=== PATIENT | female | born 1985 | race Caucasian/White ===

== ENCOUNTER 2020-07-23 19:37 | Inpatient (IN) ==
[2020-07-23] MEDS ORDERED: LABETALOL 20 MG/4 ML SYRINGE IV STA (20:06)
[2020-07-23] MEDS ORDERED: SODIUM CHLORIDE 0.9% 1,000 ML IV STA (20:06)
[2020-07-23] MEDS ORDERED: PIPERACILLIN/TAZOBACTAM 3,375 MG in SODIUM CHLORIDE 0.9% 100 ML IV STA (20:16)
[2020-07-23 20:47] LABS: ABG Base Excess 0.6 MMOL/L (-2.5-2.5); ABG HCO3 24.7 MMOL/L (20-26); ABG Oxygen Saturation 86.8 % (95-100); ABG PCO2 42.5 MM HG (35-48); ABG PH 7.391 (7.35-7.45); ABG PO2 48.2 MM HG (80-95); ABG TCO2 21.7 MMOL/L (23-27); Allen Test Positive
[2020-07-23 21:05] LABS: Barbiturates Screen,Urine Negative (Negative); Benzodiazepines Screen,Urine Positive (Negative); Cannabinoid Screen,Urine Negative (Negative); Opiate Screen,Urine Positive (Negative); Phencyclidine Screen,Urine Negative (Negative)
[2020-07-23 21:27] LABS: ABG Base Excess 0.1 MMOL/L (-2.5-2.5); ABG HCO3 22.6 MMOL/L (20-26); ABG Oxygen Saturation 97.5 % (95-100); ABG TCO2 23.5 MMOL/L (23-27)
[2020-07-23] MEDS ORDERED: ENOXAPARIN 40 MG/0.4 ML SYRINGE SUBCUT SCH (22:00)
[2020-07-23] MEDS: SODIUM CHLORIDE 0.9% 1,000 ML IV SCH (22:18)
[2020-07-23] MEDS ORDERED: ENOXAPARIN 120 MG/0.8 ML SYRINGE SUBCUT SCH (23:30)
[2020-07-24] MEDS: ALBUTEROL/IPRATROPIUM 3 ML NEB RESP TX SCH ×4 (00:30→19:42)
[2020-07-24] MEDS ORDERED: METOPROLOL TARTRATE 5 MG/5 ML VIAL IV STA (01:22)
[2020-07-24] MEDS ORDERED: METOPROLOL TARTRATE 5 MG/5 ML VIAL IV ONE (01:23)
[2020-07-24] MEDS ORDERED: VECURONIUM 10 MG VIAL IV ONE (01:59)
[2020-07-24] MEDS ORDERED: ETOMIDATE 20 MG/10 ML VIAL IV ONE (01:59)
[2020-07-24 02:47] LABS: Allen Test Positive; Pt O2 Delivery Device Ventilator
[2020-07-24 02:48] LABS: ABG Base Excess 0.1 MMOL/L (-2.5-2.5); ABG HCO3 24.5 MMOL/L (20-26); ABG Oxygen Saturation 97.4 % (95-100); ABG PCO2 32.6 MM HG (35-48); ABG PH 7.455 (7.35-7.45); ABG PO2 78.1 MM HG (80-95); ABG TCO2 18.8 MMOL/L (23-27)
[2020-07-24] MEDS ORDERED: KETOROLAC 30 MG/1 ML VIAL IV ONE (04:17)
[2020-07-24] MEDS ORDERED: CYPROHEPTADINE 0.4 MG/ML 30 ML/BOTTLE PO ONE (04:33)
[2020-07-24] MEDS: ACETAMINOPHEN 325 MG TABLET PO PRN ×2 (04:38→10:35)
[2020-07-24] MEDS: SODIUM CHLORIDE 0.9% 1,000 ML IV SCH ×6 (04:47→21:53)
[2020-07-24] MEDS ORDERED: CYPROHEPTADINE 0.4 MG/ML 30 ML/BOTTLE PO SCH (05:00)
[2020-07-24] MEDS: VECURONIUM 100 MG in SODIUM CHLORIDE 0.9% 100 ML IV SCH (05:37)
[2020-07-24] MEDS: MIDAZOLAM 100 MG in SODIUM CHLORIDE 0.9% 80 ML IV PRN (05:37)
[2020-07-24] MEDS ORDERED: CYPROHEPTADINE 4 MG TABLET PO ONE (05:45)
[2020-07-24] MEDS ORDERED: CYPROHEPTADINE 4 MG TABLET PO SCH (06:00)
[2020-07-24] MEDS: PHENYLEPHRINE DRIP 40 MG/250 ML PREMIX IV PRN ×2 (07:07→10:30)
[2020-07-24 07:27] LABS: ABG Base Excess -2.2 MMOL/L (-2.5-2.5); ABG HCO3 22.7 MMOL/L (20-26); ABG Oxygen Saturation 99.9 % (95-100); ABG PCO2 34.4 MM HG (35-48); ABG PH 7.408 (7.35-7.45); ABG TCO2 18.3 MMOL/L (23-27)
[2020-07-24 07:43] LABS: Basophils % 0.1 % (0.0-0.8); Hemoglobin 15.7 GM/DL (12.0-16.0); Immature Granulocytes % 0.7 %; Immature Granulocytes Absolute 0.07 #; Lymphocytes # 1.2 10*3/uL (1.4-4.0); Lymphocytes % 12.2 % (21.3-54.2); Mean Corpuscular HGB Conc 34.1 GM/DL (32-36); Mean Platelet Volume 13.6 FL (9.6-12.0); Monocytes % 17.8 % (1.7-12.7); NRBC # 0.04 10*3/uL; Neutrophils % 69.2 % (38.7-73.9); Platelet Count 51 T/CUMM (130-400); Red Blood Count 4.84 MC/CUMM (3.8-5.5); Red Cell Distribution Width 12.9 % (9.3-17.3); White Blood Count 9.9 T/CUMM (4-12)
[2020-07-24 07:54] LABS: INR 1.8; PT Patient Result 18.3 SECS (9.8-11.9); Partial Thromboplastin Time 43.3 SECS (23.9-33.8)
[2020-07-24] MEDS ORDERED: SODIUM CHLORIDE 0.9% 1,000 ML IV ONE (08:06)
[2020-07-24 08:42] LABS: Albumin 2.5 G/DL (3.4-5.0); Bilirubin,Total 1.9 MG/DL (0.2-1.0); Calcium 7.9 MG/DL (8.5-10.1); Osmolality,Calculated 282.5 MOS/KG (273-304); Potassium 2.7 MMOL/L (3.5-5.1); Total Protein 5.3 G/DL (6.4-8.3)
[2020-07-24 08:53] LABS: Band Neutrophils 4 % (0-10); Eosinophils 1 % (0-10); Lymphocytes 15 % (20-55); Nucleated Red Blood Cells 1 (0-5); Segmented Neutrophils 62 % (50-85); Total Cells Counted 100
[2020-07-24 08:54] LABS: Hypochromasia Slight; Platelet Estimate Decreased; Polychromasia Few
[2020-07-24 08:57] LABS: Albumin 2.5 G/DL (3.4-5.0); Bilirubin,Direct 0.44 MG/DL (0.0-0.20); Bilirubin,Indirect 0.7 MG/DL (0.0-1.0); Bilirubin,Total 1.1 MG/DL (0.2-1.0); Calcium 7.7 MG/DL (8.5-10.1); Osmolality,Calculated 280.7 MOS/KG (273-304); Potassium 2.7 MMOL/L (3.5-5.1); Thyroid Stimulating Hormone 1.1 uIU/ml (0.358-3.74); Total Protein 5.4 G/DL (6.4-8.3)
[2020-07-24] MEDS: CYPROHEPTADINE 4 MG TABLET PO SCH ×8 (09:00→23:02)
[2020-07-24] MEDS ORDERED: POTASSIUM CHLORIDE 20 MEQ/15 ML UDCUP PER TUBE ONE (09:41)
[2020-07-24 10:16] LABS: CKMB % 0.3 %
[2020-07-24] MEDS: POTASSIUM CHLORIDE RIDER 20 MEQ in PREMIX 1 EACH IV SCH ×2 (10:35→12:17)
[2020-07-24] MEDS: PIPERACILLIN/TAZOBACTAM 3,375 MG in SODIUM CHLORIDE 0.9% 100 ML IV SCH ×2 (10:35→19:10)
[2020-07-24] MEDS: VANCOMYCIN INJ 1,500 MG in SODIUM CHLORIDE 0.9% 500 ML IV SCH ×2 (10:35→20:32)
[2020-07-24] MEDS ORDERED: SODIUM CHLORIDE 0.9% 1,000 ML IV PRN ×2 (11:09→18:10)
[2020-07-24 12:00] LABS: Risk Ratio 3.63; VLDL CHOLESTEROL 13.8 MG/DL
[2020-07-24 17:18] LABS: Albumin 2.6 G/DL (3.4-5.0); Bilirubin,Direct 0.45 MG/DL (0.0-0.20); Bilirubin,Indirect 0.9 MG/DL (0.0-1.0); Bilirubin,Total 1.3 MG/DL (0.2-1.0); Calcium 7.5 MG/DL (8.5-10.1); Osmolality,Calculated 282.4 MOS/KG (273-304); Potassium 2.9 MMOL/L (3.5-5.1)
[2020-07-24 17:23] LABS: INR 1.3; PT Patient Result 14.1 SECS (9.8-11.9)
[2020-07-24 17:57] LABS: Basophils % 0.1 % (0.0-0.8); Hematocrit 38.1 VOL% (35.7-47.0); Hemoglobin 12.7 GM/DL (12.0-16.0); Immature Granulocytes % 0.3 %; Immature Granulocytes Absolute 0.03 #; Lymphocytes # 1.3 10*3/uL (1.4-4.0); Mean Corpuscular HGB Conc 33.3 GM/DL (32-36); Mean Corpuscular Volume 96.2 FL (87-102); Mean Platelet Volume 12.1 FL (9.6-12.0); Monocytes % 12.8 % (1.7-12.7); Neutrophils % 73.8 % (38.7-73.9); Red Blood Count 3.96 MC/CUMM (3.8-5.5); Red Cell Distribution Width 13.1 % (9.3-17.3); White Blood Count 9.8 T/CUMM (4-12)
[2020-07-24 18:06] LABS: Platelet Count 16 T/CUMM (130-400)
[2020-07-24] MEDS ORDERED: POTASSIUM CHLORIDE 20 MEQ TABLET PO ONE (18:17)
[2020-07-24] MEDS ORDERED: MAGNESIUM SULF RIDER 2 GM in PREMIX 1 EACH IV ONE (18:17)
[2020-07-24] MEDS: SODIUM CHLOR 0.9% KCL 40 MEQ 40 MEQ/1,000 ML BAG IV SCH (19:10)
[2020-07-24] MEDS ORDERED: POTASSIUM CHLORIDE 20 MEQ/15 ML UDCUP PO ONE (19:30)
[2020-07-25] MEDS: ALBUTEROL/IPRATROPIUM 3 ML NEB RESP TX SCH ×4 (00:10→19:04)
[2020-07-25] MEDS: CYPROHEPTADINE 4 MG TABLET PO SCH ×12 (00:17→22:57)
[2020-07-25] MEDS: PIPERACILLIN/TAZOBACTAM 3,375 MG in SODIUM CHLORIDE 0.9% 100 ML IV SCH ×3 (01:21→18:48)
[2020-07-25] MEDS: SODIUM CHLOR 0.9% KCL 40 MEQ 40 MEQ/1,000 ML BAG IV SCH ×4 (03:41→21:15)
[2020-07-25] MEDS: VECURONIUM 100 MG in SODIUM CHLORIDE 0.9% 100 ML IV SCH (04:12)
[2020-07-25 04:32] LABS: Basophils % 0.1 % (0.0-0.8); Hematocrit 30.9 VOL% (35.7-47.0); Hemoglobin 10.4 GM/DL (12.0-16.0); Immature Granulocytes % 0.2 %; Immature Granulocytes Absolute 0.02 #; Lymphocytes # 1.2 10*3/uL (1.4-4.0); Lymphocytes % 15.1 % (21.3-54.2); Mean Corpuscular HGB Conc 33.7 GM/DL (32-36); Mean Corpuscular Volume 93.9 FL (87-102); Mean Platelet Volume 12.8 FL (9.6-12.0); Neutrophils % 75.6 % (38.7-73.9); Red Blood Count 3.29 MC/CUMM (3.8-5.5); Red Cell Distribution Width 13.2 % (9.3-17.3)
[2020-07-25 04:34] LABS: Platelet Count 30 T/CUMM (130-400)
[2020-07-25 04:37] LABS: ABG Base Excess -0.4 MMOL/L (-2.5-2.5); ABG HCO3 24.2 MMOL/L (20-26); ABG PH 7.434 (7.35-7.45); ABG TCO2 21.4 MMOL/L (23-27)
[2020-07-25 04:39] LABS: INR 1.2; PT Patient Result 12.9 SECS (9.8-11.9)
[2020-07-25 05:00] LABS: Calcium 7.9 MG/DL (8.5-10.1); Osmolality,Calculated 279.4 MOS/KG (273-304); Potassium 3.6 MMOL/L (3.5-5.1)
[2020-07-25 05:27] LABS: CKMB % 0.6 %
[2020-07-25 05:35] LABS: Bilirubin,Direct 0.52 MG/DL (0.0-0.20); Bilirubin,Indirect 1.8 MG/DL (0.0-1.0); Bilirubin,Total 2.3 MG/DL (0.2-1.0); Total Protein 6.6 G/DL (6.4-8.3)
[2020-07-25] MEDS ORDERED: ASPIRIN CHEW 81 MG TABLET PO SCH (09:00)
[2020-07-25] MEDS: VANCOMYCIN INJ 1,500 MG in SODIUM CHLORIDE 0.9% 500 ML IV SCH ×2 (09:13→21:03)
[2020-07-25] MEDS: METOPROLOL TARTRATE 25 MG TABLET PO SCH ×2 (09:55→20:58)
[2020-07-25 11:37] LABS: ABG Base Excess -1.6 MMOL/L (-2.5-2.5); ABG HCO3 23.1 MMOL/L (20-26); ABG Oxygen Saturation 97.2 % (95-100); ABG PCO2 36.6 MM HG (35-48); ABG PH 7.401 (7.35-7.45); ABG PO2 79.1 MM HG (80-95); ABG TCO2 20.2 MMOL/L (23-27)
[2020-07-25] MEDS: DEXMEDETOMIDINE 400 MCG in SODIUM CHLORIDE 0.9% 96 ML IV PRN ×2 (11:57→18:54)
[2020-07-25] MEDS: ACETAMINOPHEN 325 MG TABLET PO PRN ×2 (13:08→20:58)
[2020-07-25 15:04] LABS: Hematocrit 30.8 VOL% (35.7-47.0); Immature Granulocytes % 0.7 %; Immature Granulocytes Absolute 0.07 #; Lymphocytes # 0.6 10*3/uL (1.4-4.0); Mean Corpuscular HGB Conc 32.5 GM/DL (32-36); Mean Corpuscular Volume 97.2 FL (87-102); Mean Platelet Volume 11.6 FL (9.6-12.0); Monocytes % 7.4 % (1.7-12.7); Neutrophils % 85.9 % (38.7-73.9); Red Blood Count 3.17 MC/CUMM (3.8-5.5); Red Cell Distribution Width 13.4 % (9.3-17.3); White Blood Count 10.2 T/CUMM (4-12)
[2020-07-25 15:12] LABS: Platelet Count 32 T/CUMM (130-400)
[2020-07-25 16:33] LABS: Platelet Estimate Decreased
[2020-07-25] MEDS: MIDAZOLAM 100 MG in SODIUM CHLORIDE 0.9% 80 ML IV PRN (17:21)
[2020-07-25] MEDS: PANTOPRAZOLE INJ 200 MG in SODIUM CHLORIDE 0.9% 250 ML IV SCH (18:34)
[2020-07-25] MEDS: DOXYCYCLINE HYCLATE INJ 100 MG in SODIUM CHLORIDE 0.9% 100 ML IV SCH (18:41)
[2020-07-25 19:51] LABS: Hematocrit 28.3 VOL% (35.7-47.0); Hemoglobin 9.3 GM/DL (12.0-16.0)
[2020-07-25 20:07] LABS: Bilirubin,Urine Negative (Negative); Blood, Urine Large mg/dL (Negative); Calcium Oxalate Crystals,Urine Few /HPF (Few); Glucose,Urine (UA) Negative (Negative); Ketones,Urine 20 mg/dL (Negative); Mucus,Urine Occasional /LPF (Occasional); Nitrite,Urine Negative (Negative); Protein,Urine 30 MG/DL; RBC,Urine 7 /HPF (0-4); Squamous Epithelial Cell,Urine Occasional /HPF (0-10); Urine Appearance CLOUDY (Clear); Urine Color Yellow (Yellow); Urine Specific Gravity 1.015 (1.001-1.035); Urine Urobilinogen < 2.0 EU/DL (0.2-1.0); WBC,Urine 8 /HPF (0-6)
[2020-07-25] MEDS ORDERED: VANCOMYCIN INJ 1,750 MG in SODIUM CHLORIDE 0.9% 500 ML IV SCH (21:00)
[2020-07-25 23:55] LABS: Hematocrit 28.4 VOL% (35.7-47.0); Hemoglobin 9.2 GM/DL (12.0-16.0)
[2020-07-26] MEDS: ALBUTEROL/IPRATROPIUM 3 ML NEB RESP TX SCH ×4 (00:07→18:08)
[2020-07-26] MEDS: CYPROHEPTADINE 4 MG TABLET PO SCH ×12 (00:20→21:27)
[2020-07-26] MEDS: DEXMEDETOMIDINE 400 MCG in SODIUM CHLORIDE 0.9% 96 ML IV PRN ×2 (01:28→07:55)
[2020-07-26] MEDS: PIPERACILLIN/TAZOBACTAM 3,375 MG in SODIUM CHLORIDE 0.9% 100 ML IV SCH ×2 (02:43→11:18)
[2020-07-26] MEDS: SODIUM CHLOR 0.9% KCL 40 MEQ 40 MEQ/1,000 ML BAG IV SCH ×2 (02:44→05:13)
[2020-07-26] MEDS: VECURONIUM 100 MG in SODIUM CHLORIDE 0.9% 100 ML IV SCH (04:06)
[2020-07-26] MEDS: ACETAMINOPHEN 325 MG TABLET PO PRN ×2 (04:25→18:05)
[2020-07-26 04:43] LABS: ABG Base Excess -4.5 MMOL/L (-2.5-2.5); ABG HCO3 18.8 MMOL/L (20-26); ABG Oxygen Saturation 97.3 % (95-100); ABG PCO2 28.6 MM HG (35-48); ABG PH 7.435 (7.35-7.45); ABG PO2 93.2 MM HG (80-95); ABG TCO2 19.6 MMOL/L (23-27)
[2020-07-26 05:11] LABS: Basophils % 0.1 % (0.0-0.8); Hematocrit 29.5 VOL% (35.7-47.0); Hemoglobin 9.7 GM/DL (12.0-16.0); Immature Granulocytes % 0.4 %; Immature Granulocytes Absolute 0.03 #; Lymphocytes # 1.1 10*3/uL (1.4-4.0); Lymphocytes % 14.8 % (21.3-54.2); Mean Corpuscular HGB Conc 32.9 GM/DL (32-36); Mean Corpuscular Volume 96.7 FL (87-102); Mean Platelet Volume 13.4 FL (9.6-12.0); Monocytes % 8.1 % (1.7-12.7); Neutrophils % 76.6 % (38.7-73.9); Red Blood Count 3.05 MC/CUMM (3.8-5.5); Red Cell Distribution Width 13.6 % (9.3-17.3); White Blood Count 7.6 T/CUMM (4-12)
[2020-07-26 05:16] LABS: Platelet Count 24 T/CUMM (130-400)
[2020-07-26 05:20] LABS: Osmolality,Calculated 289.6 MOS/KG (273-304); Potassium 5.5 MMOL/L (3.5-5.1)
[2020-07-26] MEDS ORDERED: SODIUM CHLORIDE 0.9% 1,000 ML IV PRN (05:29)
[2020-07-26 05:39] LABS: Hypochromasia 2+; Microcytosis 1+
[2020-07-26 05:40] LABS: Platelet Estimate Decreased
[2020-07-26 05:46] LABS: Albumin 2.8 G/DL (3.4-5.0); Bilirubin,Direct 0.58 MG/DL (0.0-0.20); Bilirubin,Indirect 1.5 MG/DL (0.0-1.0); Bilirubin,Total 2.1 MG/DL (0.2-1.0); Total Protein 6.3 G/DL (6.4-8.3)
[2020-07-26] MEDS: DOXYCYCLINE HYCLATE INJ 100 MG in SODIUM CHLORIDE 0.9% 100 ML IV SCH (05:57)
[2020-07-26 07:51] LABS: INR 1.3; PT Patient Result 13.4 SECS (9.8-11.9); Partial Thromboplastin Time 31.1 SECS (23.9-33.8)
[2020-07-26] MEDS: METOPROLOL TARTRATE 25 MG TABLET PO SCH ×2 (08:52→21:26)
[2020-07-26] MEDS: VANCOMYCIN INJ 1,500 MG in SODIUM CHLORIDE 0.9% 500 ML IV SCH ×2 (08:52→21:26)
[2020-07-26 11:07] LABS: Hepatitis B Core IgM Quant 0.14 Index; Hepatitis B Surface Ag Quant < 0.10 Index; Hepatitis B Surface Ag Result Non-Reactive (NonReactive); Hepatitis C Virus Ab Quant < 0.02 Index; Hepatitis C Virus Ab Result Non-Reactive (NonReactive)
[2020-07-26] MEDS: MIDAZOLAM 100 MG in SODIUM CHLORIDE 0.9% 80 ML IV PRN (11:47)
[2020-07-26] MEDS: cefTRIAXone 1,000 MG in SYRINGE 1 EACH IV SCH (13:00)
[2020-07-26] MEDS: AZITHROMYCIN INJ 250 MG in SODIUM CHLORIDE 0.9% 250 ML IV SCH (13:40)
[2020-07-26] MEDS ORDERED: DEXTROSE 50% 25 GM/50 ML VIAL IV PRN (16:27)
[2020-07-26] MEDS ORDERED: GLUCAGON 1 MG VIAL IM PRN (16:27)
[2020-07-26] MEDS: PANTOPRAZOLE INJ 200 MG in SODIUM CHLORIDE 0.9% 250 ML IV SCH (18:16)
[2020-07-26] MEDS: INSULIN REGULAR 100 UNIT/ML SUBCUT SCH (18:24)
[2020-07-27] MEDS: INSULIN REGULAR 100 UNIT/ML SUBCUT SCH ×4 (00:22→17:48)
[2020-07-27] MEDS: CYPROHEPTADINE 4 MG TABLET PO SCH ×12 (00:24→21:10)
[2020-07-27] MEDS: ALBUTEROL/IPRATROPIUM 3 ML NEB RESP TX SCH ×4 (01:45→18:24)
[2020-07-27 04:46] LABS: ABG Base Excess -3.6 MMOL/L (-2.5-2.5); ABG HCO3 21.4 MMOL/L (20-26); ABG Oxygen Saturation 98.1 % (95-100); ABG PCO2 32.6 MM HG (35-48); ABG PH 7.405 (7.35-7.45); ABG PO2 93.4 MM HG (80-95); ABG TCO2 18.7 MMOL/L (23-27)
[2020-07-27] MEDS: VECURONIUM 100 MG in SODIUM CHLORIDE 0.9% 100 ML IV SCH (05:03)
[2020-07-27 05:05] LABS: Basophils % 0.1 % (0.0-0.8); Eosinophils # 0.1 10*3/uL (0.0-0.87); Eosinophils % 0.5 % (0.00-10.9); Hematocrit 30.7 VOL% (35.7-47.0); Hemoglobin 9.8 GM/DL (12.0-16.0); Immature Granulocytes Absolute 0.11 #; Lymphocytes # 1.6 10*3/uL (1.4-4.0); Lymphocytes % 14.9 % (21.3-54.2); Mean Corpuscular HGB Conc 31.9 GM/DL (32-36); Mean Platelet Volume 13.9 FL (9.6-12.0); Monocytes % 5.1 % (1.7-12.7); NRBC # 0.02 10*3/uL; Neutrophils % 78.4 % (38.7-73.9); Platelet Count 40 T/CUMM (130-400); Red Blood Count 3.07 MC/CUMM (3.8-5.5); Red Cell Distribution Width 13.7 % (9.3-17.3); White Blood Count 10.5 T/CUMM (4-12)
[2020-07-27 05:09] LABS: INR 1.3; PT Patient Result 14.1 SECS (9.8-11.9); Partial Thromboplastin Time 29.2 SECS (23.9-33.8)
[2020-07-27 05:17] LABS: Calcium 7.5 MG/DL (8.5-10.1); Osmolality,Calculated 286.8 MOS/KG (273-304); Potassium 4.3 MMOL/L (3.5-5.1)
[2020-07-27] MEDS: MIDAZOLAM 100 MG in SODIUM CHLORIDE 0.9% 80 ML IV PRN ×2 (08:19→18:01)
[2020-07-27] MEDS: VANCOMYCIN INJ 1,500 MG in SODIUM CHLORIDE 0.9% 500 ML IV SCH ×2 (08:33→21:08)
[2020-07-27] MEDS: METOPROLOL TARTRATE 25 MG TABLET PO SCH ×2 (08:34→21:09)
[2020-07-27 09:09] LABS: Albumin 2.5 G/DL (3.4-5.0); Bilirubin,Direct 0.42 MG/DL (0.0-0.20); Bilirubin,Indirect 1.2 MG/DL (0.0-1.0); Bilirubin,Total 1.6 MG/DL (0.2-1.0); Total Protein 6.2 G/DL (6.4-8.3)
[2020-07-27] MEDS ORDERED: MAGNESIUM SULF RIDER 2 GM in PREMIX 1 EACH IV ONE (09:09)
[2020-07-27] MEDS ORDERED: POTASSIUM PHOSPHATE 30 MMOL in SODIUM CHLORIDE 0.9% 250 ML IV ONE (09:09)
[2020-07-27] MEDS: cefTRIAXone 1,000 MG in SYRINGE 1 EACH IV SCH (13:52)
[2020-07-27] MEDS: methylPREDNISolone SOD SUC 40 MG/1 ML VIAL IV SCH ×2 (13:54→21:10)
[2020-07-27] MEDS: AZITHROMYCIN INJ 250 MG in SODIUM CHLORIDE 0.9% 250 ML IV SCH (13:55)
[2020-07-27] MEDS: ACETAMINOPHEN 325 MG TABLET PO PRN (21:20)
[2020-07-28] MEDS: INSULIN REGULAR 100 UNIT/ML SUBCUT SCH ×5 (00:15→23:53)
[2020-07-28] MEDS: CYPROHEPTADINE 4 MG TABLET PO SCH ×13 (00:15→23:53)
[2020-07-28] MEDS: ALBUTEROL/IPRATROPIUM 3 ML NEB RESP TX SCH ×4 (00:24→19:23)
[2020-07-28 04:18] LABS: ABG Base Excess 1.7 MMOL/L (-2.5-2.5); ABG HCO3 25.7 MMOL/L (20-26); ABG Oxygen Saturation 90.2 % (95-100); ABG PCO2 34.9 MM HG (35-48); ABG PH 7.463 (7.35-7.45); ABG PO2 54.7 MM HG (80-95); ABG TCO2 21.6 MMOL/L (23-27)
[2020-07-28] MEDS: MIDAZOLAM 100 MG in SODIUM CHLORIDE 0.9% 80 ML IV PRN ×2 (04:31→15:42)
[2020-07-28] MEDS: methylPREDNISolone SOD SUC 40 MG/1 ML VIAL IV SCH ×3 (04:32→21:01)
[2020-07-28 04:35] LABS: Basophils % 0.3 % (0.0-0.8); Hematocrit 31.3 VOL% (35.7-47.0); Hemoglobin 10.2 GM/DL (12.0-16.0); Immature Granulocytes % 1.4 %; Lymphocytes # 0.4 10*3/uL (1.4-4.0); Lymphocytes % 5.8 % (21.3-54.2); Mean Corpuscular HGB Conc 32.6 GM/DL (32-36); Mean Corpuscular Volume 98.4 FL (87-102); Mean Platelet Volume 14.7 FL (9.6-12.0); Monocytes % 2.4 % (1.7-12.7); Neutrophils % 90.1 % (38.7-73.9); Red Blood Count 3.18 MC/CUMM (3.8-5.5); Red Cell Distribution Width 13.2 % (9.3-17.3); White Blood Count 7.1 T/CUMM (4-12)
[2020-07-28 04:39] LABS: Platelet Count 52 T/CUMM (130-400)
[2020-07-28 04:47] LABS: INR 1.2; PT Patient Result 12.8 SECS (9.8-11.9); Partial Thromboplastin Time 27.8 SECS (23.9-33.8)
[2020-07-28 04:59] LABS: Hypochromasia 1+; Microcytosis 1+; Platelet Estimate Decreased
[2020-07-28 05:04] LABS: Albumin 2.6 G/DL (3.4-5.0); Bilirubin,Direct 0.33 MG/DL (0.0-0.20); Bilirubin,Indirect 1.2 MG/DL (0.0-1.0); Bilirubin,Total 1.5 MG/DL (0.2-1.0); Total Protein 6.4 G/DL (6.4-8.3)
[2020-07-28 05:17] LABS: Troponin I 0.967 NG/ML (0.00-0.045)
[2020-07-28 05:18] LABS: Albumin 2.5 G/DL (3.4-5.0); Bilirubin,Total 1.2 MG/DL (0.2-1.0); Calcium 8.2 MG/DL (8.5-10.1); Osmolality,Calculated 276.8 MOS/KG (273-304); Potassium 4.4 MMOL/L (3.5-5.1); Total Protein 6.3 G/DL (6.4-8.3)
[2020-07-28] MEDS: VANCOMYCIN INJ 1,500 MG in SODIUM CHLORIDE 0.9% 500 ML IV SCH ×2 (08:45→20:52)
[2020-07-28] MEDS: METOPROLOL TARTRATE 25 MG TABLET PO SCH ×2 (09:09→21:00)
[2020-07-28] MEDS: PANTOPRAZOLE 40 MG VIAL IV SCH (09:09)
[2020-07-28] MEDS ORDERED: POTASSIUM PHOSPHATE 30 MMOL in SODIUM CHLORIDE 0.9% 250 ML IV ONE (12:00)
[2020-07-28] MEDS: cefTRIAXone 1,000 MG in SYRINGE 1 EACH IV SCH (12:16)
[2020-07-28] MEDS: AZITHROMYCIN INJ 250 MG in SODIUM CHLORIDE 0.9% 250 ML IV SCH (12:40)
[2020-07-28] MEDS: ACETAMINOPHEN 325 MG TABLET PO PRN (19:57)
[2020-07-29] MEDS: ALBUTEROL/IPRATROPIUM 3 ML NEB RESP TX SCH ×4 (01:18→19:43)
[2020-07-29] MEDS: CYPROHEPTADINE 4 MG TABLET PO SCH ×11 (01:52→21:11)
[2020-07-29 04:35] LABS: ABG Base Excess 3.3 MMOL/L (-2.5-2.5); ABG HCO3 27.3 MMOL/L (20-26); ABG Oxygen Saturation 96.5 % (95-100); ABG PCO2 35.7 MM HG (35-48); ABG PO2 80.1 MM HG (80-95); ABG TCO2 22.7 MMOL/L (23-27)
[2020-07-29 04:46] LABS: Basophils % 0.1 % (0.0-0.8); Hematocrit 29.7 VOL% (35.7-47.0); Immature Granulocytes % 1.2 %; Immature Granulocytes Absolute 0.13 #; Lymphocytes # 0.5 10*3/uL (1.4-4.0); Lymphocytes % 5.1 % (21.3-54.2); Mean Corpuscular HGB Conc 33.7 GM/DL (32-36); Mean Corpuscular Volume 95.2 FL (87-102); Mean Platelet Volume 14.2 FL (9.6-12.0); Monocytes % 5.9 % (1.7-12.7); Neutrophils % 87.7 % (38.7-73.9); Red Blood Count 3.12 MC/CUMM (3.8-5.5); Red Cell Distribution Width 13.2 % (9.3-17.3); White Blood Count 10.5 T/CUMM (4-12)
[2020-07-29 04:47] LABS: Platelet Count 92 T/CUMM (130-400)
[2020-07-29 05:09] LABS: Hypochromasia 1+; Microcytosis 1+
[2020-07-29 05:10] LABS: Platelet Estimate Decreased
[2020-07-29 05:11] LABS: Albumin 2.6 G/DL (3.4-5.0); Bilirubin,Total 1.1 MG/DL (0.2-1.0); Osmolality,Calculated 278.7 MOS/KG (273-304); Total Protein 5.8 G/DL (6.4-8.3)
[2020-07-29 05:36] LABS: Troponin I 0.542 NG/ML (0.00-0.045)
[2020-07-29] MEDS: methylPREDNISolone SOD SUC 40 MG/1 ML VIAL IV SCH ×3 (05:56→21:11)
[2020-07-29] MEDS: INSULIN REGULAR 100 UNIT/ML SUBCUT SCH ×3 (05:58→17:28)
[2020-07-29] MEDS: PANTOPRAZOLE 40 MG VIAL IV SCH (08:49)
[2020-07-29] MEDS: fentaNYL 50 MCG/HR PATCH TRANSDERM SCH (08:49)
[2020-07-29] MEDS: METOPROLOL TARTRATE 25 MG TABLET PO SCH ×2 (08:50→21:10)
[2020-07-29] MEDS: DIAZEPAM 5 MG TABLET PO SCH ×2 (08:50→21:11)
[2020-07-29] MEDS: VANCOMYCIN INJ 1,500 MG in SODIUM CHLORIDE 0.9% 500 ML IV SCH (08:51)
[2020-07-29] MEDS: BACLOFEN 20 MG TABLET PO SCH ×4 (09:26→21:11)
[2020-07-29] MEDS: DEXMEDETOMIDINE 400 MCG in SODIUM CHLORIDE 0.9% 96 ML IV PRN ×2 (11:02→19:39)
[2020-07-29] MEDS: AZITHROMYCIN INJ 250 MG in SODIUM CHLORIDE 0.9% 250 ML IV SCH (11:38)
[2020-07-29] MEDS: cefTRIAXone 1,000 MG in SYRINGE 1 EACH IV SCH (11:39)
[2020-07-29] MEDS: POLYETHYLENE GLYCOL POWDER 17 GM PACK PO SCH (15:37)
[2020-07-30] MEDS: INSULIN REGULAR 100 UNIT/ML SUBCUT SCH ×5 (00:09→23:27)
[2020-07-30] MEDS: CYPROHEPTADINE 4 MG TABLET PO SCH ×5 (00:09→08:25)
[2020-07-30] MEDS: ALBUTEROL/IPRATROPIUM 3 ML NEB RESP TX SCH ×4 (00:49→19:45)
[2020-07-30 03:56] LABS: Basophils % 0.2 % (0.0-0.8); Hematocrit 29.6 VOL% (35.7-47.0); Immature Granulocytes % 1.9 %; Immature Granulocytes Absolute 0.12 #; Lymphocytes # 0.5 10*3/uL (1.4-4.0); Lymphocytes % 8.7 % (21.3-54.2); Mean Corpuscular HGB Conc 33.8 GM/DL (32-36); Mean Corpuscular Volume 95.5 FL (87-102); Mean Platelet Volume 13.7 FL (9.6-12.0); Neutrophils % 79.2 % (38.7-73.9); Platelet Count 127 T/CUMM (130-400); Red Cell Distribution Width 13.2 % (9.3-17.3); White Blood Count 6.2 T/CUMM (4-12)
[2020-07-30] MEDS: DEXMEDETOMIDINE 400 MCG in SODIUM CHLORIDE 0.9% 96 ML IV PRN ×3 (04:05→19:05)
[2020-07-30 04:14] LABS: ABG Base Excess 0.7 MMOL/L (-2.5-2.5); ABG HCO3 24.1 MMOL/L (20-26); ABG Oxygen Saturation 92.4 % (95-100); ABG PH 7.469 (7.35-7.45); ABG PO2 64.1 MM HG (80-95); ABG TCO2 25.2 MMOL/L (23-27)
[2020-07-30 04:23] LABS: Albumin 2.6 G/DL (3.4-5.0); Bilirubin,Total 0.7 MG/DL (0.2-1.0); Calcium 8.1 MG/DL (8.5-10.1); Osmolality,Calculated 282.5 MOS/KG (273-304); Potassium 4.3 MMOL/L (3.5-5.1); Total Protein 6.2 G/DL (6.4-8.3)
[2020-07-30 04:44] LABS: Troponin I 0.345 NG/ML (0.00-0.045)
[2020-07-30] MEDS: methylPREDNISolone SOD SUC 40 MG/1 ML VIAL IV SCH ×3 (05:50→20:30)
[2020-07-30] MEDS ORDERED: FUROSEMIDE 40 MG/4 ML VIAL IV ONE (08:23)
[2020-07-30] MEDS: VANCOMYCIN INJ 1,500 MG in SODIUM CHLORIDE 0.9% 500 ML IV SCH (08:24)
[2020-07-30] MEDS: DIAZEPAM 5 MG TABLET PO SCH ×2 (08:25→20:09)
[2020-07-30] MEDS: BACLOFEN 20 MG TABLET PO SCH ×4 (08:25→20:09)
[2020-07-30] MEDS: PANTOPRAZOLE 40 MG VIAL IV SCH (08:25)
[2020-07-30] MEDS: POLYETHYLENE GLYCOL POWDER 17 GM PACK PO SCH (08:26)
[2020-07-30] MEDS: METOPROLOL TARTRATE 25 MG TABLET PO SCH ×2 (08:57→20:09)
[2020-07-30] MEDS: cefTRIAXone 1,000 MG in SYRINGE 1 EACH IV SCH (12:16)
[2020-07-30] MEDS: lisinopriL 10 MG TABLET PO SCH (12:28)
[2020-07-30] MEDS: AZITHROMYCIN INJ 250 MG in SODIUM CHLORIDE 0.9% 250 ML IV SCH (13:08)
[2020-07-30] MEDS ORDERED: MORPHINE 4 MG/1 ML VIAL IV PRN (22:37)
[2020-07-31] MEDS: ALBUTEROL/IPRATROPIUM 3 ML NEB RESP TX SCH ×4 (01:07→18:00)
[2020-07-31] MEDS: DEXMEDETOMIDINE 400 MCG in SODIUM CHLORIDE 0.9% 96 ML IV PRN (02:12)
[2020-07-31 04:13] LABS: ABG Base Excess 5.1 MMOL/L (-2.5-2.5); ABG HCO3 28.9 MMOL/L (20-26); ABG Oxygen Saturation 95.2 % (95-100); ABG PCO2 36.9 MM HG (35-48); ABG PH 7.495 (7.35-7.45); ABG PO2 73.1 MM HG (80-95); ABG TCO2 25.6 MMOL/L (23-27)
[2020-07-31 04:14] LABS: Basophils % 0.2 % (0.0-0.8); Hematocrit 32.2 VOL% (35.7-47.0); Hemoglobin 10.5 GM/DL (12.0-16.0); Immature Granulocytes % 2.6 %; Immature Granulocytes Absolute 0.17 #; Lymphocytes # 0.5 10*3/uL (1.4-4.0); Lymphocytes % 8.3 % (21.3-54.2); Mean Corpuscular HGB Conc 32.6 GM/DL (32-36); Mean Corpuscular Volume 96.7 FL (87-102); Mean Platelet Volume 13.3 FL (9.6-12.0); Monocytes % 11.9 % (1.7-12.7); Red Blood Count 3.33 MC/CUMM (3.8-5.5); Red Cell Distribution Width 13.3 % (9.3-17.3); White Blood Count 6.5 T/CUMM (4-12)
[2020-07-31 04:15] LABS: Platelet Count 180 T/CUMM (130-400)
[2020-07-31 04:51] LABS: Albumin 2.7 G/DL (3.4-5.0); Bilirubin,Total 0.5 MG/DL (0.2-1.0); Calcium 7.9 MG/DL (8.5-10.1); Osmolality,Calculated 279.8 MOS/KG (273-304); Potassium 4.5 MMOL/L (3.5-5.1); Total Protein 5.9 G/DL (6.4-8.3)
[2020-07-31] MEDS: methylPREDNISolone SOD SUC 40 MG/1 ML VIAL IV SCH ×3 (05:43→21:25)
[2020-07-31] MEDS: INSULIN REGULAR 100 UNIT/ML SUBCUT SCH ×2 (06:14→13:09)
[2020-07-31] MEDS: DIAZEPAM 5 MG TABLET PO SCH ×2 (08:15→20:25)
[2020-07-31] MEDS: lisinopriL 10 MG TABLET PO SCH (08:15)
[2020-07-31] MEDS: BACLOFEN 20 MG TABLET PO SCH ×4 (08:15→20:27)
[2020-07-31] MEDS: PANTOPRAZOLE 40 MG VIAL IV SCH (08:16)
[2020-07-31] MEDS ORDERED: FUROSEMIDE 40 MG/4 ML VIAL IV ONE (09:11)
[2020-07-31] MEDS: POLYETHYLENE GLYCOL POWDER 17 GM PACK PO SCH (09:42)
[2020-07-31] MEDS: METOPROLOL TARTRATE 25 MG TABLET PO SCH ×2 (09:42→20:27)
[2020-07-31] MEDS: VANCOMYCIN INJ 1,500 MG in SODIUM CHLORIDE 0.9% 500 ML IV SCH ×2 (10:00→21:50)
[2020-07-31] MEDS: cefTRIAXone 2,000 MG in SYRINGE 1 EACH IV SCH ×2 (11:54→22:26)
[2020-07-31] MEDS: ACETAMINOPHEN 325 MG TABLET PO PRN (12:00)
[2020-07-31] MEDS: AZITHROMYCIN INJ 250 MG in SODIUM CHLORIDE 0.9% 250 ML IV SCH (13:07)
[2020-07-31] MEDS ORDERED: LORazepam 2 MG/1 ML VIAL IV PRN (15:21)
[2020-07-31] MEDS ORDERED: LORazepam 2 MG/1 ML VIAL ONE (15:27)
[2020-07-31] MEDS: hydrALAZINE 20 MG/1 ML VIAL IV PRN (15:30)
[2020-07-31] MEDS ORDERED: hydrALAZINE 20 MG/1 ML VIAL IV ONE (17:16)
[2020-07-31] MEDS: LORazepam 2 MG/1 ML VIAL IV PRN ×2 (17:35→22:27)
[2020-07-31] MEDS: MORPHINE 4 MG/1 ML VIAL IV PRN (23:41)
[2020-08-01] MEDS: ALBUTEROL/IPRATROPIUM 3 ML NEB RESP TX SCH ×4 (00:30→19:12)
[2020-08-01] MEDS: hydrALAZINE 20 MG/1 ML VIAL IV PRN (01:47)
[2020-08-01 04:35] LABS: ABG HCO3 31.7 MMOL/L (20-26); ABG Oxygen Saturation 95.4 % (95-100); ABG PCO2 41.3 MM HG (35-48); ABG PH 7.497 (7.35-7.45); ABG PO2 74.3 MM HG (80-95); ABG TCO2 27.7 MMOL/L (23-27)
[2020-08-01 04:40] LABS: Basophils % 0.1 % (0.0-0.8); Hematocrit 39.2 VOL% (35.7-47.0); Immature Granulocytes % 1.3 %; Immature Granulocytes Absolute 0.16 #; Lymphocytes # 0.6 10*3/uL (1.4-4.0); Mean Corpuscular HGB Conc 32.9 GM/DL (32-36); Mean Corpuscular Volume 95.4 FL (87-102); Monocytes % 8.4 % (1.7-12.7); Neutrophils % 85.2 % (38.7-73.9); Platelet Count 314 T/CUMM (130-400); Red Blood Count 4.11 MC/CUMM (3.8-5.5); White Blood Count 12.4 T/CUMM (4-12)
[2020-08-01 04:42] LABS: Hemoglobin 12.9 GM/DL (12.0-16.0)
[2020-08-01] MEDS: LORazepam 2 MG/1 ML VIAL IV PRN ×2 (04:48→20:56)
[2020-08-01] MEDS: methylPREDNISolone SOD SUC 40 MG/1 ML VIAL IV SCH ×3 (04:50→22:32)
[2020-08-01 05:09] LABS: Albumin 2.9 G/DL (3.4-5.0); Bilirubin,Total 0.8 MG/DL (0.2-1.0); Osmolality,Calculated 280.5 MOS/KG (273-304); Total Protein 5.8 G/DL (6.4-8.3)
[2020-08-01] MEDS: DIAZEPAM 5 MG TABLET PO SCH ×2 (08:24→22:28)
[2020-08-01] MEDS: BACLOFEN 20 MG TABLET PO SCH ×4 (08:24→22:32)
[2020-08-01] MEDS: METOPROLOL TARTRATE 25 MG TABLET PO SCH (08:24)
[2020-08-01] MEDS: lisinopriL 10 MG TABLET PO SCH (08:24)
[2020-08-01] MEDS: fentaNYL 50 MCG/HR PATCH TRANSDERM SCH (08:24)
[2020-08-01] MEDS: PANTOPRAZOLE 40 MG VIAL IV SCH (08:25)
[2020-08-01] MEDS: POLYETHYLENE GLYCOL POWDER 17 GM PACK PO SCH (08:25)
[2020-08-01] MEDS ORDERED: CHOLESTYRAMINE 4 GM PACK PO SCH (09:00)
[2020-08-01] MEDS: VANCOMYCIN INJ 1,500 MG in SODIUM CHLORIDE 0.9% 500 ML IV SCH (09:18)
[2020-08-01] MEDS: cefTRIAXone 2,000 MG in SYRINGE 1 EACH IV SCH ×2 (11:35→22:30)
[2020-08-01] MEDS: MORPHINE 4 MG/1 ML VIAL IV PRN ×2 (12:52→17:29)
[2020-08-01] MEDS: AZITHROMYCIN INJ 250 MG in SODIUM CHLORIDE 0.9% 250 ML IV SCH (12:57)
[2020-08-01] MEDS: ALBUTEROL 2.5 MG/3 ML NEB RESP TX PRN (16:16)
[2020-08-02] MEDS: VANCOMYCIN INJ 1,500 MG in SODIUM CHLORIDE 0.9% 500 ML IV SCH ×2 (00:04→09:36)
[2020-08-02] MEDS: MORPHINE 4 MG/1 ML VIAL IV PRN ×3 (00:04→21:22)
[2020-08-02] MEDS: ALBUTEROL/IPRATROPIUM 3 ML NEB RESP TX SCH ×4 (00:30→19:29)
[2020-08-02] MEDS: LORazepam 2 MG/1 ML VIAL IV PRN (03:35)
[2020-08-02] MEDS: methylPREDNISolone SOD SUC 40 MG/1 ML VIAL IV SCH ×2 (05:30→16:57)
[2020-08-02 07:11] LABS: Albumin 2.8 G/DL (3.4-5.0); Bilirubin,Total 1.2 MG/DL (0.2-1.0); Calcium 8.6 MG/DL (8.5-10.1); Osmolality,Calculated 272.1 MOS/KG (273-304); Total Protein 6.1 G/DL (6.4-8.3)
[2020-08-02 08:46] LABS: Basophils % 0.2 % (0.0-0.8); Hematocrit 40.6 VOL% (35.7-47.0); Hemoglobin 13.6 GM/DL (12.0-16.0); Immature Granulocytes % 2.4 %; Immature Granulocytes Absolute 0.44 #; Lymphocytes # 0.4 10*3/uL (1.4-4.0); Lymphocytes % 2.1 % (21.3-54.2); Mean Corpuscular HGB Conc 33.5 GM/DL (32-36); Mean Corpuscular Volume 95.5 FL (87-102); Monocytes % 8.6 % (1.7-12.7); Neutrophils % 86.7 % (38.7-73.9); Platelet Count 281 T/CUMM (130-400); Red Blood Count 4.25 MC/CUMM (3.8-5.5); Red Cell Distribution Width 14.1 % (9.3-17.3); White Blood Count 18.3 T/CUMM (4-12)
[2020-08-02 09:07] LABS: Anisocytosis 1+; Band Neutrophils 1 % (0-10); Lymphocytes 4 % (20-55); Macrocytosis 1+; Platelet Estimate Normal; Polychromasia Slight; Segmented Neutrophils 85 % (50-85); Total Cells Counted 100
[2020-08-02] MEDS: cefTRIAXone 2,000 MG in SYRINGE 1 EACH IV SCH (09:35)
[2020-08-02] MEDS: BACLOFEN 20 MG TABLET PO SCH ×4 (09:42→20:47)
[2020-08-02] MEDS: lisinopriL 10 MG TABLET PO SCH (09:45)
[2020-08-02] MEDS: POLYETHYLENE GLYCOL POWDER 17 GM PACK PO SCH (09:46)
[2020-08-02] MEDS: DIAZEPAM 5 MG TABLET PO SCH ×2 (09:47→20:47)
[2020-08-02] MEDS: PANTOPRAZOLE 40 MG VIAL IV SCH (09:50)
[2020-08-02] MEDS: ceFAZolin 2,000 MG in PREMIX 1 EACH IV SCH (16:56)
[2020-08-02] MEDS: ACETAMINOPHEN 325 MG TABLET PO PRN (23:42)
[2020-08-03] MEDS ORDERED: LORazepam 2 MG/1 ML VIAL IV ONE (00:08)
[2020-08-03] MEDS: ceFAZolin 2,000 MG in PREMIX 1 EACH IV SCH ×3 (00:24→19:04)
[2020-08-03] MEDS: ALBUTEROL/IPRATROPIUM 3 ML NEB RESP TX SCH ×4 (00:39→19:41)
[2020-08-03] MEDS: methylPREDNISolone SOD SUC 40 MG/1 ML VIAL IV SCH ×3 (00:55→16:32)
[2020-08-03] MEDS: ACETAMINOPHEN 325 MG TABLET PO PRN ×2 (07:23→13:22)
[2020-08-03] MEDS ORDERED: SODIUM CHLORIDE 0.9% 500 ML IV ONE (07:48)
[2020-08-03] MEDS: lisinopriL 10 MG TABLET PO SCH (08:44)
[2020-08-03] MEDS ORDERED: SODIUM CHLORIDE 0.9% 100 ML IV ONE (09:21)
[2020-08-03] MEDS: LORazepam 2 MG/1 ML VIAL IV PRN ×4 (09:29→20:00)
[2020-08-03] MEDS: BACLOFEN 20 MG TABLET PO SCH ×4 (09:39→20:33)
[2020-08-03] MEDS: DIAZEPAM 5 MG TABLET PO SCH ×2 (09:40→20:29)
[2020-08-03] MEDS: OXYBUTYNIN XL 15 MG TABLET PO SCH (09:42)
[2020-08-03] MEDS: POLYETHYLENE GLYCOL POWDER 17 GM PACK PO SCH (09:44)
[2020-08-03 11:19] LABS: Double Stranded DNA Antibodies < 25.0 IU/ML
[2020-08-03] MEDS ORDERED: HYDROCORTISONE 100 MG VIAL IV ONE (16:49)
[2020-08-03] MEDS ORDERED: HYDROCORTISONE 100 MG VIAL ONE (16:49)
[2020-08-03] MEDS ORDERED: SODIUM CHLORIDE 0.9% 1,000 ML IV ONE (16:49)
[2020-08-03] MEDS: cefTRIAXone 1,000 MG in SYRINGE 1 EACH IV SCH (17:50)
[2020-08-03] MEDS: MORPHINE 4 MG/1 ML VIAL IV PRN (19:08)
[2020-08-03 19:17] LABS: Bacteria,Urine Moderate /HPF (Few); Bilirubin,Urine Negative (Negative); Blood, Urine Large mg/dL (Negative); Glucose,Urine (UA) Negative (Negative); Ketones,Urine Negative (Negative); Mucus,Urine Occasional /LPF (Occasional); Nitrite,Urine Negative (Negative); Protein,Urine 100 MG/DL; RBC,Urine 407 /HPF (0-4); Squamous Epithelial Cell,Urine Occasional /HPF (0-10); Urine Appearance Slightly Hazy (Clear); Urine Color Yellow (Yellow); Urine Specific Gravity 1.019 (1.001-1.035); Urine Urobilinogen < 2.0 EU/DL (0.2-1.0); WBC,Urine 24 /HPF (0-6)
[2020-08-03] MEDS: VANCOMYCIN INJ 1,500 MG in SODIUM CHLORIDE 0.9% 500 ML IV SCH (20:34)
[2020-08-04 00:16] LABS: CDT Result Positive (Negative); CDT Specimen Source STOOL
[2020-08-04] MEDS: ALBUTEROL/IPRATROPIUM 3 ML NEB RESP TX SCH ×5 (00:17→23:59)
[2020-08-04] MEDS: HYDROCORTISONE 100 MG VIAL IV SCH ×2 (01:32→10:28)
[2020-08-04] MEDS: methylPREDNISolone SOD SUC 40 MG/1 ML VIAL IV SCH ×3 (01:32→17:21)
[2020-08-04] MEDS: VANCOMYCIN 50 MG/ML 60 ML/BOTTLE PO SCH ×4 (03:14→17:22)
[2020-08-04 05:02] LABS: Basophils % 0.1 % (0.0-0.8); Hematocrit 36.6 VOL% (35.7-47.0); Hemoglobin 12.2 GM/DL (12.0-16.0); Immature Granulocytes % 0.9 %; Lymphocytes # 0.2 10*3/uL (1.4-4.0); Lymphocytes % 2.1 % (21.3-54.2); Mean Corpuscular HGB Conc 33.3 GM/DL (32-36); Mean Corpuscular Volume 96.3 FL (87-102); Mean Platelet Volume 11.4 FL (9.6-12.0); Monocytes % 6.2 % (1.7-12.7); Neutrophils % 90.7 % (38.7-73.9); Platelet Count 228 T/CUMM (130-400); Red Cell Distribution Width 13.8 % (9.3-17.3); White Blood Count 11.7 T/CUMM (4-12)
[2020-08-04] MEDS: MORPHINE 4 MG/1 ML VIAL IV PRN (05:09)
[2020-08-04 05:29] LABS: Albumin 2.9 G/DL (3.4-5.0); Bilirubin,Direct 0.19 MG/DL (0.0-0.20); Bilirubin,Indirect 0.6 MG/DL (0.0-1.0); Bilirubin,Total 0.8 MG/DL (0.2-1.0); Calcium 8.4 MG/DL (8.5-10.1); Osmolality,Calculated 281.4 MOS/KG (273-304); Potassium 4.1 MMOL/L (3.5-5.1); Total Protein 6.4 G/DL (6.4-8.3)
[2020-08-04 05:31] LABS: Hypochromasia 1+; Lymphocytes 3 % (20-55); Microcytosis 1+; Platelet Estimate Adequate; Segmented Neutrophils 92 % (50-85); Total Cells Counted 100
[2020-08-04] MEDS: hydrALAZINE 20 MG/1 ML VIAL IV PRN (06:07)
[2020-08-04] MEDS: POLYETHYLENE GLYCOL POWDER 17 GM PACK PO SCH (09:48)
[2020-08-04] MEDS: BACLOFEN 20 MG TABLET PO SCH ×4 (10:25→21:35)
[2020-08-04] MEDS: DIAZEPAM 5 MG TABLET PO SCH ×2 (10:25→21:35)
[2020-08-04] MEDS: lisinopriL 10 MG TABLET PO SCH (10:25)
[2020-08-04] MEDS: OXYBUTYNIN XL 15 MG TABLET PO SCH (10:26)
[2020-08-04] MEDS: VANCOMYCIN INJ 1,500 MG in SODIUM CHLORIDE 0.9% 500 ML IV SCH (10:28)
[2020-08-04] MEDS: metroNIDAZOLE INJ 500 MG in PREMIX 1 EACH IV SCH ×2 (10:34→18:00)
[2020-08-04 12:09] LABS: ABG Base Excess 1.9 MMOL/L (-2.5-2.5); ABG HCO3 26.1 MMOL/L (20-26); ABG Oxygen Saturation 81.7 % (95-100); ABG PCO2 39.4 MM HG (35-48); ABG PH 7.439 (7.35-7.45); ABG PO2 47.5 MM HG (80-95); ABG TCO2 27.3 MMOL/L (23-27); Pt O2 Delivery Device Other
[2020-08-04] MEDS ORDERED: ETOMIDATE 20 MG/10 ML VIAL IV ONE ×2 (12:27→12:32)
[2020-08-04] MEDS ORDERED: SUCCINYLCHOLINE 200 MG/10 ML VIAL ONE (12:27)
[2020-08-04] MEDS ORDERED: SUCCINYLCHOLINE 200 MG/10 ML VIAL IV ONE (12:32)
[2020-08-04 14:01] LABS: ABG Base Excess 1.5 MMOL/L (-2.5-2.5); ABG HCO3 25.5 MMOL/L (20-26); ABG Oxygen Saturation 85.2 % (95-100); ABG PH 7.399 (7.35-7.45); ABG PO2 51.6 MM HG (80-95); ABG TCO2 23.8 MMOL/L (23-27)
[2020-08-04 14:23] LABS: Ferritin 292.1 ng/ml (8-252)
[2020-08-04] MEDS: cefTRIAXone 1,000 MG in SYRINGE 1 EACH IV SCH (17:20)
[2020-08-04] MEDS: ENOXAPARIN 120 MG/0.8 ML SYRINGE SUBCUT SCH (17:20)
[2020-08-04] MEDS: DORNASE ALFA 2.5 MG/2.5 ML VIAL RESP TX SCH (19:30)
[2020-08-05] MEDS: VANCOMYCIN 50 MG/ML 60 ML/BOTTLE PO SCH ×4 (00:50→17:44)
[2020-08-05] MEDS: methylPREDNISolone SOD SUC 40 MG/1 ML VIAL IV SCH ×3 (01:22→17:42)
[2020-08-05] MEDS: ENOXAPARIN 120 MG/0.8 ML SYRINGE SUBCUT SCH (01:26)
[2020-08-05] MEDS: metroNIDAZOLE INJ 500 MG in PREMIX 1 EACH IV SCH ×3 (02:53→17:42)
[2020-08-05 03:30] LABS: ABG HCO3 28.1 MMOL/L (20-26); ABG Oxygen Saturation 99.9 % (95-100); ABG PCO2 39.7 MM HG (35-48); ABG PH 7.458 (7.35-7.45); ABG TCO2 24.9 MMOL/L (23-27)
[2020-08-05 04:41] LABS: Basophils % 0.1 % (0.0-0.8); Hematocrit 33.4 VOL% (35.7-47.0); Hemoglobin 11.1 GM/DL (12.0-16.0); Immature Granulocytes % 0.7 %; Immature Granulocytes Absolute 0.09 #; Lymphocytes # 0.3 10*3/uL (1.4-4.0); Lymphocytes % 2.1 % (21.3-54.2); Mean Corpuscular HGB Conc 33.2 GM/DL (32-36); Mean Corpuscular Volume 95.4 FL (87-102); Mean Platelet Volume 11.7 FL (9.6-12.0); Monocytes % 4.8 % (1.7-12.7); Neutrophils % 92.3 % (38.7-73.9); Platelet Count 174 T/CUMM (130-400); Red Cell Distribution Width 13.4 % (9.3-17.3); White Blood Count 13.7 T/CUMM (4-12)
[2020-08-05 05:09] LABS: Calcium 8.4 MG/DL (8.5-10.1); Osmolality,Calculated 281.5 MOS/KG (273-304); Potassium 3.8 MMOL/L (3.5-5.1)
[2020-08-05 05:13] LABS: Lymphocytes 3 % (20-55); Platelet Estimate Normal; Segmented Neutrophils 96 % (50-85); Total Cells Counted 100
[2020-08-05] MEDS: ALBUTEROL/IPRATROPIUM 3 ML NEB RESP TX SCH ×3 (06:54→18:03)
[2020-08-05] MEDS: DORNASE ALFA 2.5 MG/2.5 ML VIAL RESP TX SCH ×2 (06:54→18:03)
[2020-08-05] MEDS: DIAZEPAM 5 MG TABLET PO SCH ×2 (08:27→21:28)
[2020-08-05] MEDS: OXYBUTYNIN XL 15 MG TABLET PO SCH (08:27)
[2020-08-05] MEDS: BACLOFEN 20 MG TABLET PO SCH ×4 (08:27→21:28)
[2020-08-05] MEDS: POLYETHYLENE GLYCOL POWDER 17 GM PACK PO SCH (08:27)
[2020-08-05] MEDS: PANTOPRAZOLE 40 MG VIAL IV SCH (08:29)
[2020-08-05] MEDS: lisinopriL 10 MG TABLET PO SCH (08:31)
[2020-08-05] MEDS: MICAFUNGIN 100 MG in SODIUM CHLORIDE 0.9% 100 ML IV SCH (10:59)
[2020-08-05] MEDS: APIXABAN 5 MG TABLET PO SCH ×2 (12:37→21:27)
[2020-08-05] MEDS: cefTRIAXone 1,000 MG in SYRINGE 1 EACH IV SCH (17:43)
[2020-08-06] MEDS: INSULIN LISPRO 100 UNIT/ML SUBCUT SCH ×4 (00:02→17:23)
[2020-08-06] MEDS: ALBUTEROL/IPRATROPIUM 3 ML NEB RESP TX SCH ×4 (00:05→19:25)
[2020-08-06] MEDS: methylPREDNISolone SOD SUC 40 MG/1 ML VIAL IV SCH ×3 (00:40→17:17)
[2020-08-06] MEDS: VANCOMYCIN 50 MG/ML 60 ML/BOTTLE PO SCH ×4 (00:40→17:17)
[2020-08-06] MEDS: metroNIDAZOLE INJ 500 MG in PREMIX 1 EACH IV SCH ×2 (03:38→10:31)
[2020-08-06 03:43] LABS: ABG Base Excess 3.2 MMOL/L (-2.5-2.5); ABG HCO3 27.5 MMOL/L (20-26); ABG Oxygen Saturation 96.9 % (95-100); ABG PCO2 40.6 MM HG (35-48); ABG PH 7.448 (7.35-7.45); ABG TCO2 28.7 MMOL/L (23-27)
[2020-08-06 05:21] LABS: Basophils % 0.1 % (0.0-0.8); Hematocrit 34.3 VOL% (35.7-47.0); Immature Granulocytes Absolute 0.12 #; Lymphocytes # 0.2 10*3/uL (1.4-4.0); Lymphocytes % 1.2 % (21.3-54.2); Mean Corpuscular HGB Conc 32.1 GM/DL (32-36); Mean Corpuscular Volume 96.9 FL (87-102); Mean Platelet Volume 12.3 FL (9.6-12.0); Monocytes % 6.2 % (1.7-12.7); Neutrophils % 91.5 % (38.7-73.9); Platelet Count 173 T/CUMM (130-400); Red Blood Count 3.54 MC/CUMM (3.8-5.5); Red Cell Distribution Width 13.2 % (9.3-17.3)
[2020-08-06 05:36] LABS: Calcium 8.5 MG/DL (8.5-10.1); Osmolality,Calculated 280.8 MOS/KG (273-304); Potassium 3.6 MMOL/L (3.5-5.1)
[2020-08-06 07:18] LABS: Lymphocytes 1 % (20-55); Segmented Neutrophils 93 % (50-85); Total Cells Counted 100
[2020-08-06 07:19] LABS: Platelet Estimate Adequate; Stomatocytes Few; Tear Drop Cells Slight
[2020-08-06] MEDS: DORNASE ALFA 2.5 MG/2.5 ML VIAL RESP TX SCH ×2 (07:31→19:30)
[2020-08-06] MEDS: APIXABAN 5 MG TABLET PO SCH ×2 (08:00→21:22)
[2020-08-06] MEDS: POLYETHYLENE GLYCOL POWDER 17 GM PACK PO SCH (08:00)
[2020-08-06] MEDS: OXYBUTYNIN XL 15 MG TABLET PO SCH (08:00)
[2020-08-06] MEDS: BACLOFEN 20 MG TABLET PO SCH ×4 (08:00→21:22)
[2020-08-06] MEDS: PANTOPRAZOLE 40 MG VIAL IV SCH (08:05)
[2020-08-06] MEDS: DIAZEPAM 5 MG TABLET PO SCH ×2 (08:49→21:22)
[2020-08-06] MEDS: MICAFUNGIN 100 MG in SODIUM CHLORIDE 0.9% 100 ML IV SCH (09:32)
[2020-08-06] MEDS: cefTRIAXone 1,000 MG in SYRINGE 1 EACH IV SCH (17:15)
[2020-08-06] MEDS: LORazepam 2 MG/1 ML VIAL IV PRN (17:40)
[2020-08-07] MEDS: ALBUTEROL/IPRATROPIUM 3 ML NEB RESP TX SCH ×4 (00:13→19:30)
[2020-08-07] MEDS: VANCOMYCIN 50 MG/ML 60 ML/BOTTLE PO SCH ×4 (00:45→17:07)
[2020-08-07] MEDS: methylPREDNISolone SOD SUC 40 MG/1 ML VIAL IV SCH ×3 (00:50→16:00)
[2020-08-07] MEDS: INSULIN LISPRO 100 UNIT/ML SUBCUT SCH ×4 (01:09→17:13)
[2020-08-07 04:29] LABS: ABG Base Excess 4.3 MMOL/L (-2.5-2.5); ABG HCO3 28.3 MMOL/L (20-26); ABG Oxygen Saturation 99.7 % (95-100); ABG PCO2 41.6 MM HG (35-48); ABG PH 7.447 (7.35-7.45); ABG TCO2 25.6 MMOL/L (23-27); Allen Test Positive; Pt O2 Delivery Device Ventilator
[2020-08-07 05:28] LABS: Basophils % 0.1 % (0.0-0.8); Hematocrit 33.2 VOL% (35.7-47.0); Hemoglobin 10.5 GM/DL (12.0-16.0); Immature Granulocytes % 1.1 %; Immature Granulocytes Absolute 0.12 #; Lymphocytes # 0.2 10*3/uL (1.4-4.0); Lymphocytes % 1.5 % (21.3-54.2); Mean Corpuscular HGB Conc 31.6 GM/DL (32-36); Mean Corpuscular Volume 97.4 FL (87-102); Monocytes % 8.9 % (1.7-12.7); Neutrophils % 88.4 % (38.7-73.9); Platelet Count 156 T/CUMM (130-400); Red Blood Count 3.41 MC/CUMM (3.8-5.5); Red Cell Distribution Width 13.8 % (9.3-17.3); White Blood Count 10.6 T/CUMM (4-12)
[2020-08-07 05:36] LABS: Albumin 2.8 G/DL (3.4-5.0); Bilirubin,Total 0.7 MG/DL (0.2-1.0); Calcium 8.2 MG/DL (8.5-10.1); Osmolality,Calculated 282.5 MOS/KG (273-304); Potassium 4.2 MMOL/L (3.5-5.1); Total Protein 6.2 G/DL (6.4-8.3)
[2020-08-07 06:27] LABS: Anisocytosis 1+; Band Neutrophils 2 % (0-10); Platelet Estimate Normal; Segmented Neutrophils 88 % (50-85); Total Cells Counted 100
[2020-08-07] MEDS: DORNASE ALFA 2.5 MG/2.5 ML VIAL RESP TX SCH ×2 (07:45→19:37)
[2020-08-07] MEDS: POLYETHYLENE GLYCOL POWDER 17 GM PACK PO SCH (09:22)
[2020-08-07] MEDS: PANTOPRAZOLE 40 MG VIAL IV SCH (09:22)
[2020-08-07] MEDS: DIAZEPAM 5 MG TABLET PO SCH ×2 (09:23→20:42)
[2020-08-07] MEDS: OXYBUTYNIN XL 15 MG TABLET PO SCH (09:23)
[2020-08-07] MEDS: BACLOFEN 20 MG TABLET PO SCH ×4 (09:24→20:42)
[2020-08-07] MEDS: APIXABAN 5 MG TABLET PO SCH ×2 (09:24→20:42)
[2020-08-07] MEDS: MICAFUNGIN 100 MG in SODIUM CHLORIDE 0.9% 100 ML IV SCH (09:52)
[2020-08-07] MEDS: ACETAMINOPHEN 325 MG TABLET PO PRN (15:55)
[2020-08-07] MEDS: cefTRIAXone 1,000 MG in SYRINGE 1 EACH IV SCH (17:07)
[2020-08-08] MEDS: ALBUTEROL/IPRATROPIUM 3 ML NEB RESP TX SCH ×5 (00:37→19:34)
[2020-08-08] MEDS: VANCOMYCIN 50 MG/ML 60 ML/BOTTLE PO SCH ×4 (00:40→17:43)
[2020-08-08] MEDS: INSULIN LISPRO 100 UNIT/ML SUBCUT SCH ×4 (00:40→17:36)
[2020-08-08] MEDS: methylPREDNISolone SOD SUC 40 MG/1 ML VIAL IV SCH ×3 (00:41→16:39)
[2020-08-08] MEDS: ACETAMINOPHEN 325 MG TABLET PO PRN ×2 (02:02→12:28)
[2020-08-08 04:26] LABS: ABG Base Excess 6.9 MMOL/L (-2.5-2.5); ABG HCO3 30.7 MMOL/L (20-26); ABG Oxygen Saturation 98.5 % (95-100); ABG PCO2 38.8 MM HG (35-48); ABG PH 7.503 (7.35-7.45); ABG PO2 94.7 MM HG (80-95); ABG TCO2 26.1 MMOL/L (23-27); Allen Test Positive; Pt O2 Delivery Device Ventilator
[2020-08-08 04:49] LABS: Basophils % 0.1 % (0.0-0.8); Hematocrit 33.1 VOL% (35.7-47.0); Hemoglobin 10.6 GM/DL (12.0-16.0); Immature Granulocytes % 1.2 %; Immature Granulocytes Absolute 0.12 #; Lymphocytes # 0.3 10*3/uL (1.4-4.0); Lymphocytes % 2.8 % (21.3-54.2); Mean Corpuscular Volume 98.5 FL (87-102); Mean Platelet Volume 12.3 FL (9.6-12.0); Monocytes % 10.4 % (1.7-12.7); Neutrophils % 85.5 % (38.7-73.9); Platelet Count 148 T/CUMM (130-400); Red Blood Count 3.36 MC/CUMM (3.8-5.5); White Blood Count 10.4 T/CUMM (4-12)
[2020-08-08 05:14] LABS: Albumin 2.8 G/DL (3.4-5.0); Bilirubin,Total 0.7 MG/DL (0.2-1.0); Calcium 8.2 MG/DL (8.5-10.1); Osmolality,Calculated 285.3 MOS/KG (273-304); Potassium 3.9 MMOL/L (3.5-5.1); Total Protein 6.5 G/DL (6.4-8.3)
[2020-08-08 08:57] LABS: Anisocytosis 1+; Platelet Estimate Adequate
[2020-08-08 08:58] LABS: Macrocytosis Slight; Spherocytes Few
[2020-08-08] MEDS: BACLOFEN 20 MG TABLET PO SCH ×4 (09:10→21:36)
[2020-08-08] MEDS: APIXABAN 5 MG TABLET PO SCH ×2 (09:10→21:36)
[2020-08-08] MEDS: DIAZEPAM 5 MG TABLET PO SCH ×2 (09:10→21:36)
[2020-08-08] MEDS: OXYBUTYNIN XL 15 MG TABLET PO SCH (09:15)
[2020-08-08] MEDS: PANTOPRAZOLE 40 MG VIAL IV SCH (09:15)
[2020-08-08] MEDS: CHOLESTYRAMINE 4 GM PACK PO PRN (09:16)
[2020-08-08] MEDS: MICAFUNGIN 100 MG in SODIUM CHLORIDE 0.9% 100 ML IV SCH (10:30)
[2020-08-08] MEDS: POLYETHYLENE GLYCOL POWDER 17 GM PACK PO SCH (11:02)
[2020-08-08] MEDS: LORazepam 2 MG/1 ML VIAL IV PRN (12:08)
[2020-08-08] MEDS: cefTRIAXone 1,000 MG in SYRINGE 1 EACH IV SCH (17:36)
[2020-08-09] MEDS: CHOLESTYRAMINE 4 GM PACK PO PRN (00:03)
[2020-08-09] MEDS: VANCOMYCIN 50 MG/ML 60 ML/BOTTLE PO SCH ×4 (00:04→19:06)
[2020-08-09] MEDS: INSULIN LISPRO 100 UNIT/ML SUBCUT SCH ×4 (00:10→18:57)
[2020-08-09] MEDS: methylPREDNISolone SOD SUC 40 MG/1 ML VIAL IV SCH ×3 (00:31→10:40)
[2020-08-09] MEDS: ALBUTEROL/IPRATROPIUM 3 ML NEB RESP TX SCH ×4 (01:42→19:40)
[2020-08-09 04:24] LABS: ABG Base Excess 7.3 MMOL/L (-2.5-2.5); ABG HCO3 31.1 MMOL/L (20-26); ABG Oxygen Saturation 97.8 % (95-100); ABG PCO2 42.8 MM HG (35-48); ABG PH 7.477 (7.35-7.45); ABG PO2 88.5 MM HG (80-95); ABG TCO2 28.4 MMOL/L (23-27); Allen Test Positive; Pt O2 Delivery Device Ventilator
[2020-08-09 04:25] LABS: Basophils % 0.1 % (0.0-0.8); Hematocrit 34.1 VOL% (35.7-47.0); Hemoglobin 10.7 GM/DL (12.0-16.0); Immature Granulocytes % 1.7 %; Immature Granulocytes Absolute 0.21 #; Lymphocytes # 0.4 10*3/uL (1.4-4.0); Lymphocytes % 3.5 % (21.3-54.2); Mean Corpuscular HGB Conc 31.4 GM/DL (32-36); Mean Corpuscular Volume 98.3 FL (87-102); Mean Platelet Volume 12.9 FL (9.6-12.0); Monocytes % 8.6 % (1.7-12.7); Neutrophils % 86.1 % (38.7-73.9); Platelet Count 143 T/CUMM (130-400); Red Blood Count 3.47 MC/CUMM (3.8-5.5); Red Cell Distribution Width 13.7 % (9.3-17.3); White Blood Count 12.4 T/CUMM (4-12)
[2020-08-09 04:48] LABS: Hypochromasia 1+; Lymphocytes 4 % (20-55); Microcytosis 1+; Platelet Estimate Adequate; Segmented Neutrophils 93 % (50-85); Total Cells Counted 100
[2020-08-09 04:52] LABS: Albumin 2.8 G/DL (3.4-5.0); Calcium 8.7 MG/DL (8.5-10.1); Osmolality,Calculated 281.5 MOS/KG (273-304); Potassium 4.1 MMOL/L (3.5-5.1); Total Protein 6.8 G/DL (6.4-8.3)
[2020-08-09] MEDS: DIAZEPAM 5 MG TABLET PO SCH ×2 (08:35→21:49)
[2020-08-09] MEDS: BACLOFEN 20 MG TABLET PO SCH ×4 (08:35→21:49)
[2020-08-09] MEDS: APIXABAN 5 MG TABLET PO SCH ×2 (08:35→21:49)
[2020-08-09] MEDS: PANTOPRAZOLE 40 MG VIAL IV SCH (08:36)
[2020-08-09] MEDS: OXYBUTYNIN XL 15 MG TABLET PO SCH (08:36)
[2020-08-09] MEDS: POLYETHYLENE GLYCOL POWDER 17 GM PACK PO SCH (08:43)
[2020-08-09] MEDS: MICAFUNGIN 100 MG in SODIUM CHLORIDE 0.9% 100 ML IV SCH (11:40)
[2020-08-09] MEDS: fentaNYL 50 MCG/HR PATCH TRANSDERM SCH (12:21)
[2020-08-09] MEDS: cefTRIAXone 1,000 MG in SYRINGE 1 EACH IV SCH (19:05)
[2020-08-10] MEDS: ALBUTEROL/IPRATROPIUM 3 ML NEB RESP TX SCH ×4 (00:30→19:44)
[2020-08-10] MEDS: VANCOMYCIN 50 MG/ML 60 ML/BOTTLE PO SCH ×5 (01:14→23:23)
[2020-08-10] MEDS: methylPREDNISolone SOD SUC 40 MG/1 ML VIAL IV SCH ×3 (01:14→23:21)
[2020-08-10 03:50] LABS: ABG Base Excess 6.2 MMOL/L (-2.5-2.5); ABG Oxygen Saturation 98.6 % (95-100); ABG PCO2 44.1 MM HG (35-48); ABG PH 7.453 (7.35-7.45); ABG TCO2 27.6 MMOL/L (23-27)
[2020-08-10 04:48] LABS: Basophils % 0.2 % (0.0-0.8); Eosinophils % 0.1 % (0.00-10.9); Hematocrit 33.3 VOL% (35.7-47.0); Hemoglobin 10.8 GM/DL (12.0-16.0); Immature Granulocytes % 1.2 %; Immature Granulocytes Absolute 0.14 #; Lymphocytes # 0.4 10*3/uL (1.4-4.0); Lymphocytes % 3.8 % (21.3-54.2); Mean Corpuscular HGB Conc 32.4 GM/DL (32-36); Mean Corpuscular Volume 95.4 FL (87-102); Mean Platelet Volume 12.9 FL (9.6-12.0); Monocytes % 6.5 % (1.7-12.7); Neutrophils % 88.2 % (38.7-73.9); Platelet Count 149 T/CUMM (130-400); Red Blood Count 3.49 MC/CUMM (3.8-5.5); Red Cell Distribution Width 13.5 % (9.3-17.3); White Blood Count 11.4 T/CUMM (4-12)
[2020-08-10 04:54] LABS: Albumin 2.8 G/DL (3.4-5.0); Bilirubin,Total 0.9 MG/DL (0.2-1.0); Calcium 8.3 MG/DL (8.5-10.1); Osmolality,Calculated 283.5 MOS/KG (273-304); Potassium 4.3 MMOL/L (3.5-5.1); Total Protein 6.7 G/DL (6.4-8.3)
[2020-08-10 05:18] LABS: Hypochromasia 1+; Microcytosis 1+; Platelet Estimate Adequate
[2020-08-10] MEDS: INSULIN LISPRO 100 UNIT/ML SUBCUT SCH ×5 (06:22→23:23)
[2020-08-10] MEDS: DIAZEPAM 5 MG TABLET PO SCH ×2 (09:14→20:15)
[2020-08-10] MEDS: APIXABAN 5 MG TABLET PO SCH ×2 (09:15→20:15)
[2020-08-10] MEDS: BACLOFEN 20 MG TABLET PO SCH ×4 (09:15→20:15)
[2020-08-10] MEDS: OXYBUTYNIN XL 15 MG TABLET PO SCH (09:15)
[2020-08-10] MEDS: POLYETHYLENE GLYCOL POWDER 17 GM PACK PO SCH (09:16)
[2020-08-10] MEDS: PANTOPRAZOLE 40 MG VIAL IV SCH (10:40)
[2020-08-10] MEDS: cefTRIAXone 1,000 MG in SYRINGE 1 EACH IV SCH (18:20)
[2020-08-11] MEDS: ALBUTEROL/IPRATROPIUM 3 ML NEB RESP TX SCH ×4 (00:09→19:36)
[2020-08-11 03:18] LABS: ABG Base Excess 6.1 MMOL/L (-2.5-2.5); ABG HCO3 29.9 MMOL/L (20-26); ABG Oxygen Saturation 96.7 % (95-100); ABG PCO2 53.7 MM HG (35-48); ABG PO2 83.5 MM HG (80-95); ABG TCO2 28.9 MMOL/L (23-27)
[2020-08-11 03:39] LABS: Basophils % 0.1 % (0.0-0.8); Hematocrit 34.2 VOL% (35.7-47.0); Hemoglobin 10.8 GM/DL (12.0-16.0); Immature Granulocytes % 1.3 %; Immature Granulocytes Absolute 0.12 #; Lymphocytes # 0.4 10*3/uL (1.4-4.0); Lymphocytes % 4.2 % (21.3-54.2); Mean Corpuscular HGB Conc 31.6 GM/DL (32-36); Mean Corpuscular Volume 99.1 FL (87-102); Mean Platelet Volume 12.4 FL (9.6-12.0); Neutrophils % 87.4 % (38.7-73.9); Platelet Count 135 T/CUMM (130-400); Red Blood Count 3.45 MC/CUMM (3.8-5.5); Red Cell Distribution Width 13.2 % (9.3-17.3); White Blood Count 9.2 T/CUMM (4-12)
[2020-08-11 03:56] LABS: Calcium 8.5 MG/DL (8.5-10.1); Osmolality,Calculated 285.7 MOS/KG (273-304)
[2020-08-11 04:09] LABS: Hypochromasia Slight
[2020-08-11 04:10] LABS: Microcytosis Slight; Platelet Estimate Adequate
[2020-08-11] MEDS: INSULIN LISPRO 100 UNIT/ML SUBCUT SCH ×4 (05:06→23:39)
[2020-08-11] MEDS: VANCOMYCIN 50 MG/ML 60 ML/BOTTLE PO SCH ×4 (05:10→23:26)
[2020-08-11] MEDS: OXYBUTYNIN XL 15 MG TABLET PO SCH (10:03)
[2020-08-11] MEDS: DIAZEPAM 5 MG TABLET PO SCH ×2 (10:03→20:46)
[2020-08-11] MEDS: BACLOFEN 20 MG TABLET PO SCH ×4 (10:03→20:46)
[2020-08-11] MEDS: APIXABAN 5 MG TABLET PO SCH ×2 (10:03→20:46)
[2020-08-11] MEDS: POLYETHYLENE GLYCOL POWDER 17 GM PACK PO SCH (10:04)
[2020-08-11] MEDS: PANTOPRAZOLE 40 MG VIAL IV SCH (10:04)
[2020-08-11] MEDS: methylPREDNISolone SOD SUC 40 MG/1 ML VIAL IV SCH ×2 (10:10→23:26)
[2020-08-11] MEDS: cefTRIAXone 1,000 MG in SYRINGE 1 EACH IV SCH (16:59)
[2020-08-12] MEDS: ALBUTEROL/IPRATROPIUM 3 ML NEB RESP TX SCH ×4 (00:29→18:56)
[2020-08-12 04:02] LABS: Basophils % 0.1 % (0.0-0.8); Hematocrit 35.2 VOL% (35.7-47.0); Hemoglobin 11.2 GM/DL (12.0-16.0); Immature Granulocytes % 1.7 %; Immature Granulocytes Absolute 0.15 #; Lymphocytes # 0.4 10*3/uL (1.4-4.0); Lymphocytes % 4.5 % (21.3-54.2); Mean Corpuscular HGB Conc 31.8 GM/DL (32-36); Mean Corpuscular Volume 98.6 FL (87-102); Mean Platelet Volume 12.7 FL (9.6-12.0); Monocytes % 8.1 % (1.7-12.7); Neutrophils % 85.6 % (38.7-73.9); Platelet Count 147 T/CUMM (130-400); Red Blood Count 3.57 MC/CUMM (3.8-5.5); Red Cell Distribution Width 12.8 % (9.3-17.3); White Blood Count 8.7 T/CUMM (4-12)
[2020-08-12 04:22] LABS: Albumin 2.7 G/DL (3.4-5.0); Bilirubin,Total 0.6 MG/DL (0.2-1.0); Calcium 8.5 MG/DL (8.5-10.1); Osmolality,Calculated 281.8 MOS/KG (273-304); Potassium 4.4 MMOL/L (3.5-5.1); Total Protein 6.4 G/DL (6.4-8.3)
[2020-08-12 04:36] LABS: ABG Base Excess 5.4 MMOL/L (-2.5-2.5); ABG HCO3 32.7 MMOL/L (20-26); ABG Oxygen Saturation 98.4 % (95-100); ABG PCO2 58.9 MM HG (35-48); ABG PH 7.362 (7.35-7.45); ABG PO2 129.2 MM HG (80-95); ABG TCO2 34.5 MMOL/L (23-27); Allen Test Positive; Pt O2 Delivery Device BIPAP
[2020-08-12 04:55] LABS: Hypochromasia Slight; Microcytosis Slight; Platelet Estimate Adequate
[2020-08-12] MEDS: INSULIN LISPRO 100 UNIT/ML SUBCUT SCH ×4 (05:19→23:25)
[2020-08-12] MEDS: VANCOMYCIN 50 MG/ML 60 ML/BOTTLE PO SCH ×3 (05:20→17:38)
[2020-08-12] MEDS ORDERED: MIDAZOLAM 2 MG/2 ML VIAL ONE (08:36)
[2020-08-12] MEDS ORDERED: LIDOCAINE 1% 20 ML VIAL MISC INJ ONE (08:40)
[2020-08-12] MEDS ORDERED: LIDOCAINE 2% 20 ML VIAL RESP TX ONE (08:40)
[2020-08-12] MEDS ORDERED: LIDOCAINE 2% VISCOUS 100 ML BOTTLE SWISH/SPIT ONE (08:40)
[2020-08-12] MEDS ORDERED: APIXABAN 5 MG TABLET PO SCH (09:00)
[2020-08-12] MEDS: OXYBUTYNIN XL 15 MG TABLET PO SCH (09:10)
[2020-08-12] MEDS: fentaNYL 50 MCG/HR PATCH TRANSDERM SCH (09:10)
[2020-08-12] MEDS: PANTOPRAZOLE 40 MG VIAL IV SCH (09:12)
[2020-08-12] MEDS: POLYETHYLENE GLYCOL POWDER 17 GM PACK PO SCH (09:12)
[2020-08-12] MEDS: BACLOFEN 20 MG TABLET PO SCH ×4 (09:12→21:17)
[2020-08-12] MEDS: DIAZEPAM 5 MG TABLET PO SCH ×2 (09:12→21:18)
[2020-08-12] MEDS: CHOLESTYRAMINE 4 GM PACK PO PRN (09:13)
[2020-08-12] MEDS: methylPREDNISolone SOD SUC 40 MG/1 ML VIAL IV SCH ×2 (11:18→23:58)
[2020-08-12] MEDS: cefTRIAXone 1,000 MG in SYRINGE 1 EACH IV SCH (17:38)
[2020-08-12] MEDS: ENOXAPARIN 120 MG/0.8 ML SYRINGE SUBCUT SCH (21:18)
[2020-08-13] MEDS: ALBUTEROL/IPRATROPIUM 3 ML NEB RESP TX SCH ×4 (00:02→19:35)
[2020-08-13] MEDS: VANCOMYCIN 50 MG/ML 60 ML/BOTTLE PO SCH ×4 (01:00→18:05)
[2020-08-13 05:08] LABS: Basophils % 0.1 % (0.0-0.8); Eosinophils % 0.3 % (0.00-10.9); Hematocrit 34.6 VOL% (35.7-47.0); Lymphocytes # 1.1 10*3/uL (1.4-4.0); Lymphocytes % 11.8 % (21.3-54.2); Mean Corpuscular HGB Conc 31.8 GM/DL (32-36); Mean Platelet Volume 11.8 FL (9.6-12.0); Monocytes % 7.3 % (1.7-12.7); Neutrophils % 79.5 % (38.7-73.9); Platelet Count 147 T/CUMM (130-400); Red Blood Count 3.53 MC/CUMM (3.8-5.5); Red Cell Distribution Width 12.7 % (9.3-17.3); White Blood Count 9.6 T/CUMM (4-12)
[2020-08-13 05:24] LABS: Blood Urea Nitrogen 27 MG/DL (7-18); Calcium 8.5 MG/DL (8.5-10.1); Carbon Dioxide 38 MMOL/L (21-32); Estimated Glom Filtration Rate 216 ML/MIN; Glucose 113 MG/DL (74-106); Osmolality,Calculated 278.8 MOS/KG (273-304); Potassium 3.9 MMOL/L (3.5-5.1); Sodium 137 MMOL/L (136-145)
[2020-08-13] MEDS: INSULIN LISPRO 100 UNIT/ML SUBCUT SCH ×3 (05:28→18:00)
[2020-08-13] MEDS: DIAZEPAM 5 MG TABLET PO SCH ×2 (08:35→21:48)
[2020-08-13] MEDS: ENOXAPARIN 120 MG/0.8 ML SYRINGE SUBCUT SCH ×2 (08:35→21:50)
[2020-08-13] MEDS: BACLOFEN 20 MG TABLET PO SCH ×4 (08:35→22:00)
[2020-08-13] MEDS: OXYBUTYNIN XL 15 MG TABLET PO SCH (08:35)
[2020-08-13] MEDS: PANTOPRAZOLE 40 MG VIAL IV SCH (08:40)
[2020-08-13] MEDS: POLYETHYLENE GLYCOL POWDER 17 GM PACK PO SCH (09:00)
[2020-08-13] MEDS ORDERED: POTASSIUM PHOSPHATE 30 MMOL in SODIUM CHLORIDE 0.9% 250 ML IV ONE (10:00)
[2020-08-13] MEDS: methylPREDNISolone SOD SUC 40 MG/1 ML VIAL IV SCH ×2 (12:00→22:20)
[2020-08-13] MEDS: cefTRIAXone 1,000 MG in SYRINGE 1 EACH IV SCH (18:05)
[2020-08-14] MEDS: INSULIN LISPRO 100 UNIT/ML SUBCUT SCH ×2 (00:54→06:57)
[2020-08-14] MEDS: ALBUTEROL/IPRATROPIUM 3 ML NEB RESP TX SCH ×4 (00:59→19:22)
[2020-08-14] MEDS: VANCOMYCIN 50 MG/ML 60 ML/BOTTLE PO SCH ×3 (01:08→21:42)
[2020-08-14 04:02] LABS: Basophils % 0.1 % (0.0-0.8); Hematocrit 35.6 VOL% (35.7-47.0); Hemoglobin 11.4 GM/DL (12.0-16.0); Immature Granulocytes % 0.9 %; Immature Granulocytes Absolute 0.11 #; Lymphocytes # 0.4 10*3/uL (1.4-4.0); Lymphocytes % 2.9 % (21.3-54.2); Mean Corpuscular Volume 97.5 FL (87-102); Mean Platelet Volume 12.3 FL (9.6-12.0); Monocytes % 3.1 % (1.7-12.7); Platelet Count 139 T/CUMM (130-400); Red Blood Count 3.65 MC/CUMM (3.8-5.5); Red Cell Distribution Width 12.8 % (9.3-17.3); White Blood Count 11.9 T/CUMM (4-12)
[2020-08-14 04:24] LABS: Lymphocytes 5 % (20-55); Platelet Estimate Normal; Segmented Neutrophils 92 % (50-85); Total Cells Counted 100
[2020-08-14 04:28] LABS: Osmolality,Calculated 272.4 MOS/KG (273-304); Potassium 4.8 MMOL/L (3.5-5.1)
[2020-08-14] MEDS: POLYETHYLENE GLYCOL POWDER 17 GM PACK PO SCH (09:00)
[2020-08-14] MEDS ORDERED: FUROSEMIDE 40 MG/4 ML VIAL IV ONE (09:00)
[2020-08-14] MEDS: OXYBUTYNIN XL 15 MG TABLET PO SCH (09:00)
[2020-08-14] MEDS: ENOXAPARIN 120 MG/0.8 ML SYRINGE SUBCUT SCH ×2 (09:00→21:45)
[2020-08-14] MEDS: BACLOFEN 20 MG TABLET PO SCH ×4 (09:00→21:42)
[2020-08-14] MEDS: DIAZEPAM 5 MG TABLET PO SCH ×2 (09:00→21:42)
[2020-08-14] MEDS: PANTOPRAZOLE 40 MG VIAL IV SCH (09:05)
[2020-08-14] MEDS: methylPREDNISolone SOD SUC 40 MG/1 ML VIAL IV SCH ×2 (11:15→22:34)
[2020-08-14] MEDS ORDERED: SODIUM PHOSPHATE INJ 30 MMOL in SODIUM CHLORIDE 0.9% 250 ML IV ONE (12:00)
[2020-08-14] MEDS: cefTRIAXone 1,000 MG in SYRINGE 1 EACH IV SCH (17:15)
[2020-08-14] MEDS: IBUPROFEN 600 MG TABLET PO PRN (22:32)
[2020-08-14] MEDS: CHOLESTYRAMINE 4 GM PACK PO PRN (22:33)
[2020-08-15] MEDS: ALBUTEROL/IPRATROPIUM 3 ML NEB RESP TX SCH ×4 (01:04→19:20)
[2020-08-15 03:04] LABS: ABG Base Excess 17.1 MMOL/L (-2.5-2.5); ABG HCO3 41.1 MMOL/L (20-26); ABG Oxygen Saturation 92.6 % (95-100); ABG PCO2 65.7 MM HG (35-48); ABG PH 7.442 (7.35-7.45); ABG PO2 62.5 MM HG (80-95); ABG TCO2 40.2 MMOL/L (23-27); Allen Test Positive; Pt O2 Delivery Device BIPAP
[2020-08-15 04:51] LABS: Basophils % 0.1 % (0.0-0.8); Hematocrit 35.1 VOL% (35.7-47.0); Hemoglobin 11.3 GM/DL (12.0-16.0); Immature Granulocytes % 1.2 %; Immature Granulocytes Absolute 0.12 #; Lymphocytes # 0.4 10*3/uL (1.4-4.0); Lymphocytes % 3.8 % (21.3-54.2); Mean Corpuscular HGB Conc 32.2 GM/DL (32-36); Mean Corpuscular Volume 97.5 FL (87-102); Mean Platelet Volume 12.9 FL (9.6-12.0); Monocytes % 3.3 % (1.7-12.7); Neutrophils % 91.6 % (38.7-73.9); Platelet Count 136 T/CUMM (130-400); White Blood Count 9.7 T/CUMM (4-12)
[2020-08-15 05:08] LABS: Calcium 9.1 MG/DL (8.5-10.1); Osmolality,Calculated 276.2 MOS/KG (273-304); Potassium 4.2 MMOL/L (3.5-5.1)
[2020-08-15 05:12] LABS: Lymphocytes 4 % (20-55); Platelet Estimate Normal; Segmented Neutrophils 92 % (50-85); Total Cells Counted 100
[2020-08-15] MEDS: ENOXAPARIN 120 MG/0.8 ML SYRINGE SUBCUT SCH ×2 (09:42→21:48)
[2020-08-15] MEDS: PANTOPRAZOLE 40 MG VIAL IV SCH (09:42)
[2020-08-15] MEDS: DIAZEPAM 5 MG TABLET PO SCH ×2 (09:43→21:49)
[2020-08-15] MEDS: BACLOFEN 20 MG TABLET PO SCH ×4 (09:43→21:49)
[2020-08-15] MEDS: OXYBUTYNIN XL 15 MG TABLET PO SCH (09:43)
[2020-08-15] MEDS: POLYETHYLENE GLYCOL POWDER 17 GM PACK PO SCH (09:43)
[2020-08-15] MEDS: VANCOMYCIN 50 MG/ML 60 ML/BOTTLE PO SCH ×2 (09:45→21:49)
[2020-08-15] MEDS: fentaNYL 50 MCG/HR PATCH TRANSDERM SCH (10:13)
[2020-08-15] MEDS: methylPREDNISolone SOD SUC 40 MG/1 ML VIAL IV SCH (11:45)
[2020-08-15 15:11] LABS: Anti-Jo-1 Ab < 20 Units (<20); Anti-PM/Scl-100 Ab < 20 Units (<20); Anti-U1-RNP Ab < 20 Units (<20); EJ Negative (Negative); Fibrillarin (U3 RNP) Negative (Negative); Ku Negative (Negative); MI-2 Negative (Negative); OJ Negative (Negative); PL-12 Negative (Negative); PL-7 Negative (Negative); SRP Negative (Negative); U2 snRNP Negative (Negative)
[2020-08-15] MEDS: cefTRIAXone 1,000 MG in SYRINGE 1 EACH IV SCH (18:27)
[2020-08-15] MEDS: ACETAMINOPHEN 325 MG TABLET PO PRN (22:27)
[2020-08-16] MEDS: methylPREDNISolone SOD SUC 40 MG/1 ML VIAL IV SCH ×4 (00:58→23:59)
[2020-08-16] MEDS: ALBUTEROL/IPRATROPIUM 3 ML NEB RESP TX SCH ×5 (01:09→19:15)
[2020-08-16 03:58] LABS: Basophils % 0.2 % (0.0-0.8); Eosinophils % 0.1 % (0.00-10.9); Hematocrit 37.3 VOL% (35.7-47.0); Hemoglobin 11.7 GM/DL (12.0-16.0); Immature Granulocytes % 2.1 %; Immature Granulocytes Absolute 0.21 #; Lymphocytes # 0.3 10*3/uL (1.4-4.0); Lymphocytes % 2.9 % (21.3-54.2); Mean Corpuscular HGB Conc 31.4 GM/DL (32-36); Mean Corpuscular Volume 99.5 FL (87-102); Mean Platelet Volume 12.3 FL (9.6-12.0); Monocytes % 4.2 % (1.7-12.7); Neutrophils % 90.5 % (38.7-73.9); Platelet Count 135 T/CUMM (130-400); Red Blood Count 3.75 MC/CUMM (3.8-5.5); Red Cell Distribution Width 13.2 % (9.3-17.3); White Blood Count 9.8 T/CUMM (4-12)
[2020-08-16 04:20] LABS: Blood Urea Nitrogen 30 MG/DL (7-18); Calcium 9.2 MG/DL (8.5-10.1); Estimated Glom Filtration Rate 209 ML/MIN; Glucose 100 MG/DL (74-106); Osmolality,Calculated 275.1 MOS/KG (273-304); Sodium 135 MMOL/L (136-145)
[2020-08-16 04:41] LABS: Potassium 4.5 MMOL/L (3.5-5.1)
[2020-08-16 04:42] LABS: Carbon Dioxide 40 MMOL/L (21-32)
[2020-08-16 05:13] LABS: Hypochromasia 1+; Lymphocytes 1 % (20-55); Segmented Neutrophils 96 % (50-85); Total Cells Counted 100
[2020-08-16 05:14] LABS: Microcytosis Slight
[2020-08-16] MEDS: BACLOFEN 20 MG TABLET PO SCH ×4 (09:00→21:43)
[2020-08-16] MEDS ORDERED: BUPIVACAINE MPF 0.25% 30 ML VIAL ONE (10:03)
[2020-08-16] MEDS ORDERED: fentaNYL 100 MCG/2 ML VIAL ONE (10:07)
[2020-08-16] MEDS ORDERED: MIDAZOLAM 2 MG/2 ML VIAL ONE (10:07)
[2020-08-16] MEDS ORDERED: ROCURONIUM 50 MG/5 ML VIAL IV ONE ×2 (10:07→11:19)
[2020-08-16] MEDS ORDERED: PHENYLEPHRINE 1 MG/10 ML SYRINGE IV ONE (11:19)
[2020-08-16] MEDS ORDERED: propofoL 200 MG/20 ML VIAL IV ONE (11:19)
[2020-08-16] MEDS ORDERED: SEVOFLURANE 1 UNIT/15 MINUTE INH ONE (11:19)
[2020-08-16] MEDS ORDERED: LIDOCAINE 2% 5 ML VIAL ONE (11:19)
[2020-08-16] MEDS ORDERED: PHENYLEPHRINE DRIP 40 MG/250 ML PREMIX IV ONE (11:30)
[2020-08-16] MEDS: PHENYLEPHRINE DRIP 40 MG/250 ML PREMIX IV PRN (11:34)
[2020-08-16] MEDS ORDERED: EPINEPHrine 1 MG/ML VIAL ONE (11:36)
[2020-08-16] MEDS ORDERED: ATROPINE 1 MG/10 ML SYRINGE ONE (11:49)
[2020-08-16 11:58] LABS: ABG Base Excess 17.3 MMOL/L (-2.5-2.5); ABG HCO3 41.2 MMOL/L (20-26); ABG Oxygen Saturation 87.1 % (95-100); ABG PCO2 44.6 MM HG (35-48); ABG PO2 42.3 MM HG (80-95); ABG TCO2 36.8 MMOL/L (23-27)
[2020-08-16] MEDS: ENOXAPARIN 120 MG/0.8 ML SYRINGE SUBCUT SCH (12:40)
[2020-08-16] MEDS: PANTOPRAZOLE 40 MG VIAL IV SCH (14:11)
[2020-08-16] MEDS: OXYBUTYNIN XL 15 MG TABLET PO SCH (14:11)
[2020-08-16] MEDS: VANCOMYCIN 50 MG/ML 60 ML/BOTTLE PO SCH ×2 (14:11→22:14)
[2020-08-16] MEDS: POLYETHYLENE GLYCOL POWDER 17 GM PACK PO SCH (14:11)
[2020-08-16] MEDS: DIAZEPAM 5 MG TABLET PO SCH ×2 (14:11→21:43)
[2020-08-16] MEDS: cefTRIAXone 1,000 MG in SYRINGE 1 EACH IV SCH (18:12)
[2020-08-17] MEDS: ALBUTEROL/IPRATROPIUM 3 ML NEB RESP TX SCH ×4 (00:58→19:25)
[2020-08-17] MEDS: DORNASE ALFA 2.5 MG/2.5 ML VIAL RESP TX SCH ×3 (01:30→19:25)
[2020-08-17 04:14] LABS: Basophils % 0.1 % (0.0-0.8); Hematocrit 33.6 VOL% (35.7-47.0); Hemoglobin 11.3 GM/DL (12.0-16.0); Immature Granulocytes % 1.4 %; Lymphocytes # 0.4 10*3/uL (1.4-4.0); Lymphocytes % 2.9 % (21.3-54.2); Mean Corpuscular HGB Conc 33.6 GM/DL (32-36); Mean Corpuscular Volume 93.3 FL (87-102); Mean Platelet Volume 12.4 FL (9.6-12.0); Monocytes % 4.2 % (1.7-12.7); Neutrophils % 91.4 % (38.7-73.9); Platelet Count 145 T/CUMM (130-400); Red Cell Distribution Width 13.7 % (9.3-17.3); White Blood Count 14.2 T/CUMM (4-12)
[2020-08-17 04:26] LABS: ABG Base Excess 10.3 MMOL/L (-2.5-2.5); ABG HCO3 34.2 MMOL/L (20-26); ABG PCO2 23.9 MM HG (35-48); ABG TCO2 25.9 MMOL/L (23-27); Allen Test Positive; Pt O2 Delivery Device Ventilator
[2020-08-17 04:28] LABS: Calcium 8.7 MG/DL (8.5-10.1); Osmolality,Calculated 278.1 MOS/KG (273-304); Potassium 3.2 MMOL/L (3.5-5.1)
[2020-08-17 04:31] LABS: ABG PH 7.703 (7.35-7.45)
[2020-08-17 04:33] LABS: Band Neutrophils 1 % (0-10); Hypochromasia 1+; Lymphocytes 1 % (20-55); Microcytosis 1+; Platelet Estimate Adequate; Segmented Neutrophils 95 % (50-85); Total Cells Counted 100
[2020-08-17] MEDS: methylPREDNISolone SOD SUC 40 MG/1 ML VIAL IV SCH ×3 (06:52→23:57)
[2020-08-17] MEDS: PHENYLEPHRINE DRIP 40 MG/250 ML PREMIX IV PRN ×2 (07:43→21:20)
[2020-08-17 07:50] LABS: ABG Base Excess 10.1 MMOL/L (-2.5-2.5); ABG HCO3 33.9 MMOL/L (20-26); ABG PCO2 27.2 MM HG (35-48); ABG TCO2 27.5 MMOL/L (23-27)
[2020-08-17 07:52] LABS: ABG PH 7.662 (7.35-7.45)
[2020-08-17] MEDS ORDERED: MORPHINE 4 MG/1 ML VIAL ONE (07:54)
[2020-08-17] MEDS: LORazepam 2 MG/1 ML VIAL IV PRN (07:58)
[2020-08-17] MEDS ORDERED: MORPHINE 4 MG/1 ML VIAL IV ONE (07:58)
[2020-08-17] MEDS: PANTOPRAZOLE 40 MG VIAL IV SCH (09:09)
[2020-08-17] MEDS: ENOXAPARIN 120 MG/0.8 ML SYRINGE SUBCUT SCH (09:11)
[2020-08-17] MEDS: DIAZEPAM 5 MG TABLET PO SCH ×2 (09:12→20:54)
[2020-08-17] MEDS: POTASSIUM CHLORIDE 20 MEQ/15 ML UDCUP PER TUBE PRN ×4 (09:12→16:50)
[2020-08-17] MEDS: OXYBUTYNIN XL 15 MG TABLET PO SCH (09:12)
[2020-08-17] MEDS: POLYETHYLENE GLYCOL POWDER 17 GM PACK PO SCH (09:12)
[2020-08-17] MEDS: BACLOFEN 20 MG TABLET PO SCH ×4 (09:13→20:54)
[2020-08-17] MEDS: VANCOMYCIN 50 MG/ML 60 ML/BOTTLE PO SCH ×2 (09:17→20:55)
[2020-08-17] MEDS: CHOLESTYRAMINE 4 GM PACK PO PRN (12:31)
[2020-08-17] MEDS: cefTRIAXone 1,000 MG in SYRINGE 1 EACH IV SCH (18:25)
[2020-08-18] MEDS: ALBUTEROL/IPRATROPIUM 3 ML NEB RESP TX SCH ×4 (00:32→19:32)
[2020-08-18 03:59] LABS: Allen Test Positive; Pt O2 Delivery Device Ventilator
[2020-08-18 04:00] LABS: ABG Base Excess 7.5 MMOL/L (-2.5-2.5); ABG HCO3 31.3 MMOL/L (20-26); ABG PCO2 36.7 MM HG (35-48); ABG PH 7.529 (7.35-7.45); ABG TCO2 27.5 MMOL/L (23-27)
[2020-08-18] MEDS: methylPREDNISolone SOD SUC 40 MG/1 ML VIAL IV SCH ×2 (06:04→14:55)
[2020-08-18] MEDS: DORNASE ALFA 2.5 MG/2.5 ML VIAL RESP TX SCH ×2 (07:45→19:32)
[2020-08-18 08:13] LABS: Basophils % 0.1 % (0.0-0.8); Hematocrit 31.2 VOL% (35.7-47.0); Hemoglobin 10.4 GM/DL (12.0-16.0); Immature Granulocytes % 0.7 %; Immature Granulocytes Absolute 0.07 #; Lymphocytes # 0.5 10*3/uL (1.4-4.0); Lymphocytes % 4.2 % (21.3-54.2); Mean Corpuscular HGB Conc 33.3 GM/DL (32-36); Mean Corpuscular Volume 95.1 FL (87-102); Mean Platelet Volume 12.1 FL (9.6-12.0); Platelet Count 128 T/CUMM (130-400); Red Blood Count 3.28 MC/CUMM (3.8-5.5); Red Cell Distribution Width 15.2 % (9.3-17.3); White Blood Count 10.7 T/CUMM (4-12)
[2020-08-18] MEDS: LACTATED RINGERS 1,000 ML IV SCH (08:20)
[2020-08-18 08:26] LABS: INR 1.1; PT Patient Result 11.5 SECS (9.8-11.9)
[2020-08-18 08:32] LABS: Albumin 2.9 G/DL (3.4-5.0); Bilirubin,Total 1.2 MG/DL (0.2-1.0); Calcium 9.1 MG/DL (8.5-10.1); Osmolality,Calculated 276.8 MOS/KG (273-304); Potassium 4.3 MMOL/L (3.5-5.1); Total Protein 6.4 G/DL (6.4-8.3)
[2020-08-18 08:37] LABS: Lymphocytes 2 % (20-55); Segmented Neutrophils 95 % (50-85); Total Cells Counted 100
[2020-08-18 08:38] LABS: Hypochromasia 1+; Microcytosis 1+
[2020-08-18 08:39] LABS: Platelet Estimate Adequate
[2020-08-18] MEDS: OXYBUTYNIN XL 15 MG TABLET PO SCH (09:00)
[2020-08-18] MEDS: POLYETHYLENE GLYCOL POWDER 17 GM PACK PO SCH (09:00)
[2020-08-18] MEDS: PHENYLEPHRINE DRIP 40 MG/250 ML PREMIX IV PRN (09:50)
[2020-08-18] MEDS: DIAZEPAM 5 MG TABLET PO SCH ×2 (10:25→20:05)
[2020-08-18] MEDS: PANTOPRAZOLE 40 MG VIAL IV SCH (10:25)
[2020-08-18] MEDS: BACLOFEN 20 MG TABLET PO SCH ×4 (10:25→20:04)
[2020-08-18] MEDS: fentaNYL 50 MCG/HR PATCH TRANSDERM SCH (10:40)
[2020-08-18] MEDS: VANCOMYCIN 50 MG/ML 60 ML/BOTTLE PO SCH ×2 (14:05→20:05)
[2020-08-19] MEDS: methylPREDNISolone SOD SUC 40 MG/1 ML VIAL IV SCH ×3 (00:05→14:50)
[2020-08-19] MEDS: ALBUTEROL/IPRATROPIUM 3 ML NEB RESP TX SCH ×4 (01:15→19:19)
[2020-08-19 05:47] LABS: Hematocrit 29.3 VOL% (35.7-47.0); Hemoglobin 9.6 GM/DL (12.0-16.0); Immature Granulocytes % 0.5 %; Immature Granulocytes Absolute 0.03 #; Lymphocytes # 0.4 10*3/uL (1.4-4.0); Mean Corpuscular HGB Conc 32.8 GM/DL (32-36); Mean Corpuscular Volume 96.7 FL (87-102); Mean Platelet Volume 12.1 FL (9.6-12.0); Monocytes % 4.5 % (1.7-12.7); Red Blood Count 3.03 MC/CUMM (3.8-5.5); Red Cell Distribution Width 14.7 % (9.3-17.3); White Blood Count 6.3 T/CUMM (4-12)
[2020-08-19 05:48] LABS: Platelet Count 92 T/CUMM (130-400)
[2020-08-19 06:09] LABS: Albumin 2.8 G/DL (3.4-5.0); Bilirubin,Total 1.5 MG/DL (0.2-1.0); Osmolality,Calculated 275.8 MOS/KG (273-304); Potassium 3.8 MMOL/L (3.5-5.1); Total Protein 6.3 G/DL (6.4-8.3)
[2020-08-19 06:11] LABS: Hypochromasia 1+; Microcytosis 1+; Ovalocytes Slight; Platelet Estimate Decreased
[2020-08-19] MEDS: DORNASE ALFA 2.5 MG/2.5 ML VIAL RESP TX SCH ×2 (08:08→19:19)
[2020-08-19] MEDS: DIAZEPAM 5 MG TABLET PO SCH ×2 (08:25→20:03)
[2020-08-19] MEDS: PANTOPRAZOLE 40 MG VIAL IV SCH (08:25)
[2020-08-19] MEDS: OXYBUTYNIN XL 15 MG TABLET PO SCH (08:25)
[2020-08-19] MEDS: BACLOFEN 20 MG TABLET PO SCH ×4 (08:25→20:04)
[2020-08-19] MEDS: POLYETHYLENE GLYCOL POWDER 17 GM PACK PO SCH (08:50)
[2020-08-19] MEDS: LACTATED RINGERS 1,000 ML IV SCH (13:20)
[2020-08-19] MEDS ORDERED: ceFAZolin 1,000 MG in SYRINGE 1 EACH IV ONE (15:11)
[2020-08-19] MEDS ORDERED: LIDOCAINE 2% 5 ML VIAL ONE (15:32)
[2020-08-19] MEDS ORDERED: propofoL 200 MG/20 ML VIAL IV ONE (15:32)
[2020-08-19] MEDS ORDERED: MIDAZOLAM 2 MG/2 ML VIAL ONE (15:33)
[2020-08-20] MEDS: methylPREDNISolone SOD SUC 40 MG/1 ML VIAL IV SCH ×4 (00:24→23:26)
[2020-08-20] MEDS: ALBUTEROL/IPRATROPIUM 3 ML NEB RESP TX SCH ×4 (01:00→20:00)
[2020-08-20 06:57] LABS: Albumin 2.9 G/DL (3.4-5.0); Bilirubin,Total 2.1 MG/DL (0.2-1.0); Calcium 8.9 MG/DL (8.5-10.1); Osmolality,Calculated 277.7 MOS/KG (273-304); Total Protein 6.3 G/DL (6.4-8.3)
[2020-08-20] MEDS: LACTATED RINGERS 1,000 ML IV SCH (07:08)
[2020-08-20] MEDS: DORNASE ALFA 2.5 MG/2.5 ML VIAL RESP TX SCH ×2 (07:27→20:07)
[2020-08-20] MEDS: POLYETHYLENE GLYCOL POWDER 17 GM PACK PO SCH (08:48)
[2020-08-20] MEDS: PANTOPRAZOLE 40 MG VIAL IV SCH (08:48)
[2020-08-20] MEDS: BACLOFEN 20 MG TABLET PO SCH ×4 (08:48→21:27)
[2020-08-20] MEDS: OXYBUTYNIN XL 15 MG TABLET PO SCH (08:48)
[2020-08-20] MEDS: DIAZEPAM 5 MG TABLET PO SCH ×2 (08:48→21:27)
[2020-08-21] MEDS: ALBUTEROL/IPRATROPIUM 3 ML NEB RESP TX SCH ×4 (01:48→19:43)
[2020-08-21 05:41] LABS: Hematocrit 29.3 VOL% (35.7-47.0); Hemoglobin 9.7 GM/DL (12.0-16.0); Immature Granulocytes % 0.6 %; Immature Granulocytes Absolute 0.03 #; Lymphocytes # 0.4 10*3/uL (1.4-4.0); Lymphocytes % 8.1 % (21.3-54.2); Mean Corpuscular HGB Conc 33.1 GM/DL (32-36); Mean Corpuscular Volume 95.8 FL (87-102); Mean Platelet Volume 12.6 FL (9.6-12.0); Monocytes % 5.2 % (1.7-12.7); Neutrophils % 86.1 % (38.7-73.9); Red Blood Count 3.06 MC/CUMM (3.8-5.5); Red Cell Distribution Width 15.6 % (9.3-17.3); White Blood Count 4.8 T/CUMM (4-12)
[2020-08-21 05:48] LABS: Platelet Count 83 T/CUMM (130-400)
[2020-08-21 06:05] LABS: Hypochromasia 1+; Microcytosis 1+; Platelet Estimate Decreased
[2020-08-21 06:21] LABS: Albumin 2.8 G/DL (3.4-5.0); Bilirubin,Total 1.1 MG/DL (0.2-1.0); Calcium 8.5 MG/DL (8.5-10.1); Osmolality,Calculated 280.8 MOS/KG (273-304); Potassium 4.4 MMOL/L (3.5-5.1); Total Protein 5.9 G/DL (6.4-8.3)
[2020-08-21] MEDS: DORNASE ALFA 2.5 MG/2.5 ML VIAL RESP TX SCH ×2 (07:31→19:50)
[2020-08-21] MEDS: methylPREDNISolone SOD SUC 40 MG/1 ML VIAL IV SCH ×3 (08:02→22:08)
[2020-08-21] MEDS: OXYBUTYNIN XL 15 MG TABLET PO SCH (08:41)
[2020-08-21] MEDS: LACTATED RINGERS 1,000 ML IV SCH (08:41)
[2020-08-21] MEDS: fentaNYL 50 MCG/HR PATCH TRANSDERM SCH (08:41)
[2020-08-21] MEDS: APIXABAN 5 MG TABLET PER TUBE SCH ×2 (08:42→20:51)
[2020-08-21] MEDS: POLYETHYLENE GLYCOL POWDER 17 GM PACK PO SCH (08:42)
[2020-08-21] MEDS: PANTOPRAZOLE 40 MG VIAL IV SCH (08:42)
[2020-08-21] MEDS: DIAZEPAM 5 MG TABLET PO SCH ×2 (08:42→20:51)
[2020-08-21] MEDS: BACLOFEN 20 MG TABLET PO SCH ×4 (08:42→20:51)
[2020-08-22] MEDS: ALBUTEROL/IPRATROPIUM 3 ML NEB RESP TX SCH ×4 (01:22→19:02)
[2020-08-22 04:09] LABS: Hematocrit 30.7 VOL% (35.7-47.0); Immature Granulocytes % 0.8 %; Immature Granulocytes Absolute 0.05 #; Lymphocytes # 0.6 10*3/uL (1.4-4.0); Lymphocytes % 9.1 % (21.3-54.2); Mean Corpuscular HGB Conc 32.6 GM/DL (32-36); Mean Corpuscular Volume 95.9 FL (87-102); Mean Platelet Volume 12.8 FL (9.6-12.0); Monocytes % 4.5 % (1.7-12.7); Neutrophils % 85.6 % (38.7-73.9); Platelet Count 92 T/CUMM (130-400); Red Cell Distribution Width 15.6 % (9.3-17.3)
[2020-08-22 04:53] LABS: Bilirubin,Total 1.6 MG/DL (0.2-1.0); Calcium 9.1 MG/DL (8.5-10.1); Osmolality,Calculated 277.8 MOS/KG (273-304); Total Protein 6.3 G/DL (6.4-8.3)
[2020-08-22 05:00] LABS: ABG Base Excess 4.2 MMOL/L (-2.5-2.5); ABG HCO3 28.3 MMOL/L (20-26); ABG Oxygen Saturation 99.9 % (95-100); ABG PH 7.539 (7.35-7.45); ABG TCO2 23.9 MMOL/L (23-27); Allen Test Positive; Pt O2 Delivery Device Ventilator
[2020-08-22] MEDS: methylPREDNISolone SOD SUC 40 MG/1 ML VIAL IV SCH ×3 (06:15→22:04)
[2020-08-22] MEDS: DORNASE ALFA 2.5 MG/2.5 ML VIAL RESP TX SCH ×2 (07:19→19:08)
[2020-08-22] MEDS: LACTATED RINGERS 1,000 ML IV SCH (08:30)
[2020-08-22] MEDS: OXYBUTYNIN XL 15 MG TABLET PO SCH (08:30)
[2020-08-22] MEDS: BACLOFEN 20 MG TABLET PO SCH ×4 (08:31→21:35)
[2020-08-22] MEDS: APIXABAN 5 MG TABLET PER TUBE SCH ×2 (08:31→21:35)
[2020-08-22] MEDS: DIAZEPAM 5 MG TABLET PO SCH ×2 (08:31→21:35)
[2020-08-22] MEDS: POLYETHYLENE GLYCOL POWDER 17 GM PACK PO SCH (08:31)
[2020-08-22] MEDS: PANTOPRAZOLE 40 MG VIAL IV SCH (08:31)
[2020-08-23] MEDS: ALBUTEROL/IPRATROPIUM 3 ML NEB RESP TX SCH ×4 (00:41→18:56)
[2020-08-23 04:34] LABS: Allen Test Positive; Pt O2 Delivery Device Ventilator
[2020-08-23 04:35] LABS: ABG Base Excess 4.4 MMOL/L (-2.5-2.5); ABG HCO3 28.4 MMOL/L (20-26); ABG Oxygen Saturation 99.4 % (95-100); ABG PCO2 30.8 MM HG (35-48); ABG PH 7.542 (7.35-7.45); ABG TCO2 23.5 MMOL/L (23-27)
[2020-08-23 06:31] LABS: Basophils % 0.1 % (0.0-0.8); Hematocrit 31.2 VOL% (35.7-47.0); Hemoglobin 10.2 GM/DL (12.0-16.0); Immature Granulocytes % 0.7 %; Immature Granulocytes Absolute 0.05 #; Lymphocytes # 0.6 10*3/uL (1.4-4.0); Lymphocytes % 8.3 % (21.3-54.2); Mean Corpuscular HGB Conc 32.7 GM/DL (32-36); Mean Corpuscular Volume 96.9 FL (87-102); Mean Platelet Volume 12.9 FL (9.6-12.0); Monocytes % 4.3 % (1.7-12.7); Neutrophils % 86.6 % (38.7-73.9); Platelet Count 104 T/CUMM (130-400); Red Blood Count 3.22 MC/CUMM (3.8-5.5); Red Cell Distribution Width 15.2 % (9.3-17.3); White Blood Count 7.3 T/CUMM (4-12)
[2020-08-23] MEDS: methylPREDNISolone SOD SUC 40 MG/1 ML VIAL IV SCH ×3 (06:46→22:16)
[2020-08-23 06:56] LABS: Albumin 2.9 G/DL (3.4-5.0); Calcium 8.9 MG/DL (8.5-10.1); Osmolality,Calculated 277.8 MOS/KG (273-304); Total Protein 6.2 G/DL (6.4-8.3)
[2020-08-23 07:07] LABS: Hypochromasia Slight
[2020-08-23 07:08] LABS: Microcytosis 1+; Platelet Estimate Decreased
[2020-08-23] MEDS: DORNASE ALFA 2.5 MG/2.5 ML VIAL RESP TX SCH ×2 (07:36→19:03)
[2020-08-23] MEDS: LACTATED RINGERS 1,000 ML IV SCH (08:00)
[2020-08-23] MEDS: POLYETHYLENE GLYCOL POWDER 17 GM PACK PO SCH (08:50)
[2020-08-23] MEDS: DIAZEPAM 5 MG TABLET PO SCH ×2 (08:50→22:18)
[2020-08-23] MEDS: BACLOFEN 20 MG TABLET PO SCH ×4 (08:50→22:18)
[2020-08-23] MEDS: OXYBUTYNIN XL 15 MG TABLET PO SCH (08:50)
[2020-08-23] MEDS: PANTOPRAZOLE 40 MG VIAL IV SCH (08:50)
[2020-08-23] MEDS: APIXABAN 5 MG TABLET PER TUBE SCH ×2 (08:50→22:18)
[2020-08-24] MEDS: ALBUTEROL/IPRATROPIUM 3 ML NEB RESP TX SCH ×4 (00:10→19:38)
[2020-08-24 04:32] LABS: ABG Base Excess 5.2 MMOL/L (-2.5-2.5); ABG HCO3 29.1 MMOL/L (20-26); ABG Oxygen Saturation 98.7 % (95-100); ABG PCO2 33.3 MM HG (35-48); ABG PH 7.528 (7.35-7.45); ABG TCO2 24.4 MMOL/L (23-27)
[2020-08-24 05:06] LABS: Basophils % 0.2 % (0.0-0.8); Hematocrit 33.7 VOL% (35.7-47.0); Hemoglobin 11.2 GM/DL (12.0-16.0); Immature Granulocytes % 0.8 %; Immature Granulocytes Absolute 0.05 #; Lymphocytes # 0.4 10*3/uL (1.4-4.0); Lymphocytes % 5.5 % (21.3-54.2); Mean Corpuscular HGB Conc 33.2 GM/DL (32-36); Mean Corpuscular Volume 95.2 FL (87-102); Mean Platelet Volume 12.8 FL (9.6-12.0); Monocytes % 3.8 % (1.7-12.7); Neutrophils % 89.7 % (38.7-73.9); Platelet Count 95 T/CUMM (130-400); Red Blood Count 3.54 MC/CUMM (3.8-5.5); Red Cell Distribution Width 15.3 % (9.3-17.3); White Blood Count 6.4 T/CUMM (4-12)
[2020-08-24 05:37] LABS: Anisocytosis 1+; Hypochromasia 1+; Microcytosis 1+; Polychromasia Slight; Tear Drop Cells Slight
[2020-08-24 05:38] LABS: Platelet Estimate Decreased
[2020-08-24 06:24] LABS: Calcium 9.2 MG/DL (8.5-10.1); Potassium 4.4 MMOL/L (3.5-5.1)
[2020-08-24] MEDS: methylPREDNISolone SOD SUC 40 MG/1 ML VIAL IV SCH ×2 (07:02→21:20)
[2020-08-24] MEDS: DORNASE ALFA 2.5 MG/2.5 ML VIAL RESP TX SCH (07:50)
[2020-08-24] MEDS: LACTATED RINGERS 1,000 ML IV SCH (08:00)
[2020-08-24] MEDS: BACLOFEN 20 MG TABLET PO SCH ×4 (09:00→21:23)
[2020-08-24] MEDS: PANTOPRAZOLE 40 MG VIAL IV SCH (09:00)
[2020-08-24] MEDS: OXYBUTYNIN XL 15 MG TABLET PO SCH (09:00)
[2020-08-24] MEDS: POLYETHYLENE GLYCOL POWDER 17 GM PACK PO SCH (09:00)
[2020-08-24] MEDS: DIAZEPAM 5 MG TABLET PO SCH ×2 (09:00→21:23)
[2020-08-24] MEDS: APIXABAN 5 MG TABLET PER TUBE SCH ×2 (09:00→21:23)
[2020-08-24] MEDS: fentaNYL 50 MCG/HR PATCH TRANSDERM SCH (09:06)
[2020-08-25] MEDS: ALBUTEROL/IPRATROPIUM 3 ML NEB RESP TX SCH ×4 (01:26→19:44)
[2020-08-25 04:00] LABS: ABG HCO3 27.7 MMOL/L (20-26); ABG Oxygen Saturation 97.5 % (95-100); ABG PCO2 30.6 MM HG (35-48); ABG PH 7.575 (7.35-7.45); ABG PO2 94.5 MM HG (80-95); ABG TCO2 28.7 MMOL/L (23-27)
[2020-08-25 04:47] LABS: Hematocrit 31.5 VOL% (35.7-47.0); Hemoglobin 10.3 GM/DL (12.0-16.0); Immature Granulocytes % 0.8 %; Immature Granulocytes Absolute 0.05 #; Lymphocytes # 0.5 10*3/uL (1.4-4.0); Lymphocytes % 8.1 % (21.3-54.2); Mean Corpuscular HGB Conc 32.7 GM/DL (32-36); Mean Corpuscular Volume 96.3 FL (87-102); Mean Platelet Volume 12.7 FL (9.6-12.0); Monocytes % 5.3 % (1.7-12.7); Neutrophils % 85.8 % (38.7-73.9); Platelet Count 114 T/CUMM (130-400); Red Blood Count 3.27 MC/CUMM (3.8-5.5); Red Cell Distribution Width 15.4 % (9.3-17.3)
[2020-08-25 05:09] LABS: Calcium 8.7 MG/DL (8.5-10.1); Osmolality,Calculated 280.7 MOS/KG (273-304)
[2020-08-25] MEDS: PANTOPRAZOLE 40 MG VIAL IV SCH (08:39)
[2020-08-25] MEDS: POLYETHYLENE GLYCOL POWDER 17 GM PACK PO SCH (08:39)
[2020-08-25] MEDS: methylPREDNISolone SOD SUC 40 MG/1 ML VIAL IV SCH ×2 (08:39→20:22)
[2020-08-25] MEDS: OXYBUTYNIN XL 15 MG TABLET PO SCH (08:40)
[2020-08-25] MEDS: BACLOFEN 20 MG TABLET PO SCH ×4 (08:40→20:21)
[2020-08-25] MEDS: APIXABAN 5 MG TABLET PER TUBE SCH ×2 (08:40→20:21)
[2020-08-25] MEDS: DIAZEPAM 5 MG TABLET PO SCH ×2 (08:40→20:21)
[2020-08-25] MEDS ORDERED: SODIUM CHLORIDE 0.9% 1,000 ML IV SCH (09:30)
[2020-08-25] MEDS: PHENYLEPHRINE DRIP 40 MG/250 ML PREMIX IV PRN ×2 (19:00→21:05)
[2020-08-25] MEDS: ACETAMINOPHEN 325 MG TABLET PO PRN (20:20)
[2020-08-26] MEDS: ALBUTEROL/IPRATROPIUM 3 ML NEB RESP TX SCH ×4 (00:59→19:36)
[2020-08-26 04:03] LABS: Basophils % 0.1 % (0.0-0.8); Hematocrit 38.2 VOL% (35.7-47.0); Hemoglobin 12.1 GM/DL (12.0-16.0); Immature Granulocytes % 0.8 %; Immature Granulocytes Absolute 0.07 #; Lymphocytes # 0.9 10*3/uL (1.4-4.0); Lymphocytes % 9.7 % (21.3-54.2); Mean Corpuscular HGB Conc 31.7 GM/DL (32-36); Mean Corpuscular Volume 97.4 FL (87-102); Mean Platelet Volume 11.6 FL (9.6-12.0); Monocytes % 7.7 % (1.7-12.7); NRBC # 0.02 10*3/uL; Neutrophils % 81.7 % (38.7-73.9); Platelet Count 198 T/CUMM (130-400); Red Blood Count 3.92 MC/CUMM (3.8-5.5); Red Cell Distribution Width 15.6 % (9.3-17.3); White Blood Count 9.3 T/CUMM (4-12)
[2020-08-26 04:21] LABS: Calcium 9.1 MG/DL (8.5-10.1); Osmolality,Calculated 278.7 MOS/KG (273-304); Potassium 4.5 MMOL/L (3.5-5.1)
[2020-08-26 04:54] LABS: ABG Base Excess 4.6 MMOL/L (-2.5-2.5); ABG HCO3 26.6 MMOL/L (20-26); ABG Oxygen Saturation 98.9 % (95-100); ABG PCO2 31.5 MM HG (35-48); ABG PH 7.545 (7.35-7.45); ABG PO2 132.3 MM HG (80-95); ABG TCO2 27.6 MMOL/L (23-27); Allen Test Positive; Pt O2 Delivery Device Ventilator
[2020-08-26] MEDS: PHENYLEPHRINE DRIP 40 MG/250 ML PREMIX IV PRN ×2 (06:20→20:13)
[2020-08-26] MEDS: ACETAMINOPHEN 325 MG TABLET PO PRN (07:28)
[2020-08-26] MEDS: methylPREDNISolone SOD SUC 40 MG/1 ML VIAL IV SCH (08:47)
[2020-08-26] MEDS: APIXABAN 5 MG TABLET PER TUBE SCH ×2 (08:47→21:02)
[2020-08-26] MEDS: OXYBUTYNIN XL 15 MG TABLET PO SCH (08:47)
[2020-08-26] MEDS: PANTOPRAZOLE 40 MG VIAL IV SCH (08:47)
[2020-08-26] MEDS: BACLOFEN 20 MG TABLET PO SCH ×4 (08:47→21:02)
[2020-08-26] MEDS: POLYETHYLENE GLYCOL POWDER 17 GM PACK PO SCH (08:48)
[2020-08-26] MEDS: DIAZEPAM 5 MG TABLET PO SCH ×2 (08:48→21:02)
[2020-08-26] MEDS ORDERED: MEROPENEM 1,000 MG in SODIUM CHLORIDE 0.9% 100 ML IV SCH (15:00)
[2020-08-26] MEDS ORDERED: MEROPENEM 500 MG in SODIUM CHLORIDE 0.9% 100 ML IV SCH (15:30)
[2020-08-27] MEDS: ALBUTEROL/IPRATROPIUM 3 ML NEB RESP TX SCH ×4 (01:12→19:25)
[2020-08-27 04:23] LABS: ABG Base Excess 3.3 MMOL/L (-2.5-2.5); ABG HCO3 27.4 MMOL/L (20-26); ABG Oxygen Saturation 99.9 % (95-100); ABG PCO2 30.8 MM HG (35-48); ABG PH 7.525 (7.35-7.45); ABG TCO2 22.2 MMOL/L (23-27); Allen Test Positive; Pt O2 Delivery Device Ventilator
[2020-08-27 04:25] LABS: Basophils % 0.1 % (0.0-0.8); Eosinophils % 0.2 % (0.00-10.9); Hemoglobin 12.6 GM/DL (12.0-16.0); Immature Granulocytes % 0.8 %; Immature Granulocytes Absolute 0.07 #; Lymphocytes # 2.4 10*3/uL (1.4-4.0); Lymphocytes % 26.6 % (21.3-54.2); Mean Corpuscular HGB Conc 32.3 GM/DL (32-36); Mean Corpuscular Volume 95.8 FL (87-102); Mean Platelet Volume 11.4 FL (9.6-12.0); Monocytes % 7.4 % (1.7-12.7); Neutrophils % 64.9 % (38.7-73.9); Platelet Count 194 T/CUMM (130-400); Red Blood Count 4.07 MC/CUMM (3.8-5.5); Red Cell Distribution Width 15.2 % (9.3-17.3); White Blood Count 9.1 T/CUMM (4-12)
[2020-08-27 04:44] LABS: Calcium 9.4 MG/DL (8.5-10.1); Osmolality,Calculated 272.2 MOS/KG (273-304); Potassium 3.6 MMOL/L (3.5-5.1)
[2020-08-27] MEDS: OXYBUTYNIN XL 15 MG TABLET PO SCH (08:41)
[2020-08-27] MEDS: APIXABAN 5 MG TABLET PER TUBE SCH ×2 (08:42→20:55)
[2020-08-27] MEDS: DIAZEPAM 5 MG TABLET PO SCH ×2 (08:43→20:55)
[2020-08-27] MEDS: BACLOFEN 20 MG TABLET PO SCH ×4 (08:43→20:55)
[2020-08-27] MEDS: LEVOFLOXACIN 750 MG TABLET PO SCH (08:43)
[2020-08-27] MEDS: PANTOPRAZOLE 40 MG VIAL IV SCH (08:47)
[2020-08-27] MEDS ORDERED: methylPREDNISolone SOD SUC 40 MG/1 ML VIAL IV SCH (09:00)
[2020-08-27] MEDS: fentaNYL 50 MCG/HR PATCH TRANSDERM SCH (09:12)
[2020-08-27] MEDS: POTASSIUM CHLORIDE 20 MEQ/15 ML UDCUP PER TUBE PRN ×2 (13:24→16:43)
[2020-08-28] MEDS: ALBUTEROL/IPRATROPIUM 3 ML NEB RESP TX SCH ×4 (01:00→19:39)
[2020-08-28] MEDS: DIAZEPAM 5 MG TABLET PO SCH ×2 (08:52→20:00)
[2020-08-28] MEDS: APIXABAN 5 MG TABLET PER TUBE SCH ×2 (08:52→20:00)
[2020-08-28] MEDS: BACLOFEN 20 MG TABLET PO SCH ×4 (08:52→20:00)
[2020-08-28] MEDS: OXYBUTYNIN XL 15 MG TABLET PO SCH (08:52)
[2020-08-28] MEDS: LEVOFLOXACIN 750 MG TABLET PO SCH (08:52)
[2020-08-28] MEDS: PANTOPRAZOLE 40 MG VIAL IV SCH (08:54)
[2020-08-28] MEDS: methylPREDNISolone SOD SUC 40 MG/1 ML VIAL IV SCH (08:55)
[2020-08-29] MEDS: ALBUTEROL/IPRATROPIUM 3 ML NEB RESP TX SCH ×4 (01:48→19:08)
[2020-08-29 03:47] LABS: ABG Base Excess 4.4 MMOL/L (-2.5-2.5); ABG HCO3 30.1 MMOL/L (20-26); ABG Oxygen Saturation 98.2 % (95-100); ABG PCO2 50.1 MM HG (35-48); ABG PH 7.397 (7.35-7.45); ABG PO2 118.9 MM HG (80-95); ABG TCO2 31.7 MMOL/L (23-27)
[2020-08-29] MEDS: LEVOFLOXACIN 750 MG TABLET PO SCH (08:24)
[2020-08-29] MEDS: BACLOFEN 20 MG TABLET PO SCH ×4 (08:24→21:27)
[2020-08-29] MEDS: DIAZEPAM 5 MG TABLET PO SCH ×2 (08:24→21:27)
[2020-08-29] MEDS: OXYBUTYNIN XL 15 MG TABLET PO SCH (08:24)
[2020-08-29] MEDS: methylPREDNISolone SOD SUC 40 MG/1 ML VIAL IV SCH (08:26)
[2020-08-29] MEDS: PANTOPRAZOLE 40 MG VIAL IV SCH (08:28)
[2020-08-29] MEDS: APIXABAN 5 MG TABLET PER TUBE SCH ×2 (08:51→21:27)
[2020-08-30] MEDS: ALBUTEROL/IPRATROPIUM 3 ML NEB RESP TX SCH ×4 (00:05→19:35)
[2020-08-30 06:11] LABS: Hematocrit 34.2 VOL% (35.7-47.0); Hemoglobin 10.9 GM/DL (12.0-16.0); Immature Granulocytes % 0.6 %; Immature Granulocytes Absolute 0.03 #; Lymphocytes # 0.7 10*3/uL (1.4-4.0); Lymphocytes % 14.1 % (21.3-54.2); Mean Corpuscular HGB Conc 31.9 GM/DL (32-36); Mean Corpuscular Volume 98.3 FL (87-102); Mean Platelet Volume 12.2 FL (9.6-12.0); Monocytes % 11.5 % (1.7-12.7); Neutrophils % 73.8 % (38.7-73.9); Platelet Count 154 T/CUMM (130-400); Red Blood Count 3.48 MC/CUMM (3.8-5.5)
[2020-08-30 06:37] LABS: Blood Urea Nitrogen 31 MG/DL (7-18); Carbon Dioxide 30 MMOL/L (21-32); Estimated Glom Filtration Rate 206 ML/MIN; Glucose 105 MG/DL (74-106); Sodium 136 MMOL/L (136-145)
[2020-08-30] MEDS: fentaNYL 50 MCG/HR PATCH TRANSDERM SCH (09:18)
[2020-08-30] MEDS: methylPREDNISolone SOD SUC 40 MG/1 ML VIAL IV SCH (09:20)
[2020-08-30] MEDS: PANTOPRAZOLE 40 MG VIAL IV SCH (09:20)
[2020-08-30] MEDS: DIAZEPAM 5 MG TABLET PO SCH (09:22)
[2020-08-30] MEDS: OXYBUTYNIN XL 15 MG TABLET PO SCH (09:22)
[2020-08-30] MEDS: LEVOFLOXACIN 750 MG TABLET PO SCH (09:22)
[2020-08-30] MEDS: BACLOFEN 20 MG TABLET PO SCH ×4 (09:22→22:15)
[2020-08-30] MEDS: APIXABAN 5 MG TABLET PER TUBE SCH ×2 (09:23→22:16)
[2020-08-30] MEDS: ACETAMINOPHEN 325 MG TABLET PO PRN (17:49)
[2020-08-31] MEDS: ALBUTEROL/IPRATROPIUM 3 ML NEB RESP TX SCH ×4 (00:19→19:29)
[2020-08-31] MEDS: OXYBUTYNIN XL 15 MG TABLET PO SCH (09:32)
[2020-08-31] MEDS: BACLOFEN 20 MG TABLET PO SCH ×4 (09:32→21:26)
[2020-08-31] MEDS: PANTOPRAZOLE 40 MG VIAL IV SCH (09:32)
[2020-08-31] MEDS: APIXABAN 5 MG TABLET PER TUBE SCH ×2 (09:32→21:26)
[2020-09-01] MEDS: ALBUTEROL/IPRATROPIUM 3 ML NEB RESP TX SCH ×4 (00:25→19:34)
[2020-09-01 05:19] LABS: Eosinophils % 0.3 % (0.00-10.9); Hematocrit 33.2 VOL% (35.7-47.0); Hemoglobin 10.8 GM/DL (12.0-16.0); Immature Granulocytes % 0.5 %; Immature Granulocytes Absolute 0.02 #; Lymphocytes # 0.6 10*3/uL (1.4-4.0); Mean Corpuscular HGB Conc 32.5 GM/DL (32-36); Mean Corpuscular Volume 96.2 FL (87-102); Mean Platelet Volume 11.2 FL (9.6-12.0); Monocytes % 13.5 % (1.7-12.7); Neutrophils % 68.7 % (38.7-73.9); Platelet Count 129 T/CUMM (130-400); Red Blood Count 3.45 MC/CUMM (3.8-5.5); Red Cell Distribution Width 14.5 % (9.3-17.3); White Blood Count 3.7 T/CUMM (4-12)
[2020-09-01 06:09] LABS: Blood Urea Nitrogen 22 MG/DL (7-18); Calcium 8.7 MG/DL (8.5-10.1); Carbon Dioxide 35 MMOL/L (21-32); Estimated Glom Filtration Rate 228 ML/MIN; Glucose 123 MG/DL (74-106); Potassium 4.1 MMOL/L (3.5-5.1); Sodium 136 MMOL/L (136-145)
[2020-09-01] MEDS: OXYBUTYNIN XL 15 MG TABLET PO SCH (09:52)
[2020-09-01] MEDS: PANTOPRAZOLE 40 MG VIAL IV SCH (09:52)
[2020-09-01] MEDS: APIXABAN 5 MG TABLET PER TUBE SCH ×2 (09:52→21:11)
[2020-09-01] MEDS: BACLOFEN 20 MG TABLET PO SCH ×4 (09:52→21:11)
[2020-09-01] MEDS ORDERED: diphenhydrAMINE 2% CREAM 28 GM TUBE TOP PRN (20:25)
[2020-09-01] MEDS: HYDROCORTISONE 1% CREAM 28 GM TUBE TOP PRN (22:32)
[2020-09-01] MEDS: diphenhydrAMINE 25 MG/10 ML UDCUP PER TUBE PRN (22:32)
[2020-09-02] MEDS: ALBUTEROL/IPRATROPIUM 3 ML NEB RESP TX SCH ×4 (02:14→19:10)
[2020-09-02 06:39] LABS: Blood Urea Nitrogen 18 MG/DL (7-18); Calcium 9.1 MG/DL (8.5-10.1); Estimated Glom Filtration Rate 219 ML/MIN; Glucose 125 MG/DL (74-106)
[2020-09-02 06:43] LABS: Osmolality,Calculated 268.4 MOS/KG (273-304); Potassium 4.3 MMOL/L (3.5-5.1); Sodium 133 MMOL/L (136-145)
[2020-09-02 06:47] LABS: Carbon Dioxide 36 MMOL/L (21-32)
[2020-09-02 08:24] LABS: ABG Base Excess 11.8 MMOL/L (-2.5-2.5); ABG HCO3 35.7 MMOL/L (20-26); ABG Oxygen Saturation 99.5 % (95-100); ABG PH 7.367 (7.35-7.45); ABG TCO2 36.2 MMOL/L (23-27)
[2020-09-02 08:25] LABS: ABG PCO2 70.3 MM HG (35-48)
[2020-09-02] MEDS: APIXABAN 5 MG TABLET PER TUBE SCH ×2 (10:21→21:21)
[2020-09-02] MEDS: OXYBUTYNIN XL 15 MG TABLET PO SCH (10:21)
[2020-09-02] MEDS: diphenhydrAMINE 25 MG/10 ML UDCUP PER TUBE PRN (10:22)
[2020-09-02] MEDS: BACLOFEN 20 MG TABLET PO SCH ×4 (10:22→21:21)
[2020-09-02] MEDS: PANTOPRAZOLE 40 MG VIAL IV SCH (19:24)
[2020-09-02] MEDS: HYDROCORTISONE 1% CREAM 28 GM TUBE TOP PRN (21:19)
[2020-09-03] MEDS: ALBUTEROL/IPRATROPIUM 3 ML NEB RESP TX SCH ×4 (01:12→19:40)
[2020-09-03 05:06] LABS: ABG Base Excess 15.4 MMOL/L (-2.5-2.5); ABG HCO3 42.9 MMOL/L (20-26); ABG Oxygen Saturation 97.7 % (95-100); ABG PCO2 67.6 MM HG (35-48); ABG PO2 98.1 MM HG (80-95); ABG TCO2 44.9 MMOL/L (23-27); Allen Test Positive; Pt O2 Delivery Device Other
[2020-09-03 06:06] LABS: Hematocrit 35.8 VOL% (35.7-47.0); Hemoglobin 11.5 GM/DL (12.0-16.0); Immature Granulocytes % 1.2 %; Immature Granulocytes Absolute 0.05 #; Lymphocytes # 0.8 10*3/uL (1.4-4.0); Lymphocytes % 18.8 % (21.3-54.2); Mean Corpuscular HGB Conc 32.1 GM/DL (32-36); Mean Corpuscular Volume 97.5 FL (87-102); Mean Platelet Volume 11.5 FL (9.6-12.0); Monocytes % 15.1 % (1.7-12.7); Neutrophils % 64.9 % (38.7-73.9); Platelet Count 146 T/CUMM (130-400); Red Blood Count 3.67 MC/CUMM (3.8-5.5); Red Cell Distribution Width 14.4 % (9.3-17.3); White Blood Count 4.2 T/CUMM (4-12)
[2020-09-03 06:33] LABS: Blood Urea Nitrogen 16 MG/DL (7-18); Calcium 9.3 MG/DL (8.5-10.1); Carbon Dioxide 36 MMOL/L (21-32); Estimated Glom Filtration Rate 209 ML/MIN; Glucose 118 MG/DL (74-106); Potassium 4.2 MMOL/L (3.5-5.1); Sodium 136 MMOL/L (136-145)
[2020-09-03] MEDS: diphenhydrAMINE 25 MG/10 ML UDCUP PER TUBE PRN ×2 (06:38→19:57)
[2020-09-03] MEDS: OXYBUTYNIN XL 15 MG TABLET PO SCH (09:04)
[2020-09-03] MEDS: BACLOFEN 20 MG TABLET PO SCH ×4 (09:05→21:45)
[2020-09-03] MEDS: APIXABAN 5 MG TABLET PER TUBE SCH ×2 (09:05→21:45)
[2020-09-03] MEDS: PANTOPRAZOLE 40 MG VIAL IV SCH (12:20)
[2020-09-04] MEDS: ALBUTEROL/IPRATROPIUM 3 ML NEB RESP TX SCH ×4 (01:09→19:31)
[2020-09-04 04:02] LABS: ABG HCO3 36.7 MMOL/L (20-26); ABG Oxygen Saturation 96.3 % (95-100); ABG PCO2 62.3 MM HG (35-48); ABG PH 7.419 (7.35-7.45); ABG PO2 76.7 MM HG (80-95); ABG TCO2 35.9 MMOL/L (23-27)
[2020-09-04 04:03] LABS: Allen Test Positive; Pt O2 Delivery Device Other
[2020-09-04 05:34] LABS: Basophils % 0.3 % (0.0-0.8); Hematocrit 33.7 VOL% (35.7-47.0); Hemoglobin 11.2 GM/DL (12.0-16.0); Immature Granulocytes % 1.1 %; Immature Granulocytes Absolute 0.04 #; Lymphocytes # 0.8 10*3/uL (1.4-4.0); Lymphocytes % 20.9 % (21.3-54.2); Mean Corpuscular HGB Conc 33.2 GM/DL (32-36); Mean Corpuscular Volume 94.1 FL (87-102); Mean Platelet Volume 11.1 FL (9.6-12.0); Neutrophils % 62.7 % (38.7-73.9); Platelet Count 130 T/CUMM (130-400); Red Blood Count 3.58 MC/CUMM (3.8-5.5); Red Cell Distribution Width 14.6 % (9.3-17.3); White Blood Count 3.7 T/CUMM (4-12)
[2020-09-04 08:20] LABS: Blood Urea Nitrogen 15 MG/DL (7-18); Calcium 9.3 MG/DL (8.5-10.1); Carbon Dioxide 38 MMOL/L (21-32); Estimated Glom Filtration Rate 209 ML/MIN; Glucose 113 MG/DL (74-106); Osmolality,Calculated 274.8 MOS/KG (273-304); Potassium 4.2 MMOL/L (3.5-5.1); Sodium 137 MMOL/L (136-145)
[2020-09-04] MEDS: PANTOPRAZOLE 40 MG VIAL IV SCH (10:04)
[2020-09-04] MEDS: BACLOFEN 20 MG TABLET PO SCH ×4 (10:04→20:50)
[2020-09-04] MEDS: APIXABAN 5 MG TABLET PER TUBE SCH ×2 (10:04→20:50)
[2020-09-04] MEDS: OXYBUTYNIN XL 15 MG TABLET PO SCH (10:04)
[2020-09-04] MEDS: LIDOCAINE 5% PATCH TRANSDERM SCH (13:50)
[2020-09-04] MEDS: HYDROCORTISONE 1% CREAM 28 GM TUBE TOP PRN (13:54)
[2020-09-04] MEDS: diphenhydrAMINE 25 MG/10 ML UDCUP PER TUBE PRN (19:32)
[2020-09-04 19:42] LABS: Bacteria,Urine Moderate /HPF (Few); Bilirubin,Urine Negative (Negative); Blood, Urine Moderate mg/dL (Negative); Glucose,Urine (UA) Negative (Negative); Ketones,Urine Negative (Negative); Mucus,Urine Many /LPF (Occasional); Nitrite,Urine Negative (Negative); Protein,Urine 100 MG/DL; RBC,Urine 77 /HPF (0-4); Squamous Epithelial Cell,Urine Many /HPF (0-10); Urine Appearance CLOUDY (Clear); Urine Color Amber (Yellow); Urine Specific Gravity 1.011 (1.001-1.035); Urine Urobilinogen < 2.0 EU/DL (0.2-1.0); WBC,Urine 316 /HPF (0-6)
[2020-09-05] MEDS: ALBUTEROL/IPRATROPIUM 3 ML NEB RESP TX SCH ×4 (00:50→19:12)
[2020-09-05 05:51] LABS: Basophils % 0.3 % (0.0-0.8); Hematocrit 33.1 VOL% (35.7-47.0); Hemoglobin 10.7 GM/DL (12.0-16.0); Immature Granulocytes % 0.8 %; Immature Granulocytes Absolute 0.03 #; Lymphocytes # 0.8 10*3/uL (1.4-4.0); Mean Corpuscular HGB Conc 32.3 GM/DL (32-36); Mean Corpuscular Volume 96.5 FL (87-102); Mean Platelet Volume 11.3 FL (9.6-12.0); Monocytes % 13.4 % (1.7-12.7); Neutrophils % 65.5 % (38.7-73.9); Platelet Count 136 T/CUMM (130-400); Red Blood Count 3.43 MC/CUMM (3.8-5.5); Red Cell Distribution Width 14.9 % (9.3-17.3)
[2020-09-05 06:03] LABS: Blood Urea Nitrogen 16 MG/DL (7-18); Calcium 9.1 MG/DL (8.5-10.1); Carbon Dioxide 38 MMOL/L (21-32); Estimated Glom Filtration Rate 209 ML/MIN; Glucose 125 MG/DL (74-106); Osmolality,Calculated 271.1 MOS/KG (273-304); Potassium 3.7 MMOL/L (3.5-5.1); Sodium 135 MMOL/L (136-145)
[2020-09-05 07:55] LABS: Platelet Estimate Adequate
[2020-09-05 07:56] LABS: Anisocytosis 1+; Macrocytosis Slight
[2020-09-05] MEDS: PANTOPRAZOLE 40 MG VIAL IV SCH (08:31)
[2020-09-05] MEDS: APIXABAN 5 MG TABLET PER TUBE SCH ×2 (08:32→21:35)
[2020-09-05] MEDS: BACLOFEN 20 MG TABLET PO SCH ×4 (08:32→21:35)
[2020-09-05] MEDS: OXYBUTYNIN XL 15 MG TABLET PO SCH (08:32)
[2020-09-05] MEDS: LIDOCAINE 5% PATCH TRANSDERM SCH (08:51)
[2020-09-05] MEDS: fentaNYL 25 MCG/HR PATCH TRANSDERM SCH (12:24)
[2020-09-05] MEDS: IBUPROFEN 600 MG TABLET PO PRN (17:42)
[2020-09-05] MEDS: diphenhydrAMINE 25 MG/10 ML UDCUP PER TUBE PRN (21:34)
[2020-09-06] MEDS: ALBUTEROL/IPRATROPIUM 3 ML NEB RESP TX SCH ×4 (00:57→19:26)
[2020-09-06 05:34] LABS: Hematocrit 33.8 VOL% (35.7-47.0); Hemoglobin 11.1 GM/DL (12.0-16.0); Immature Granulocytes % 0.5 %; Immature Granulocytes Absolute 0.02 #; Lymphocytes # 0.9 10*3/uL (1.4-4.0); Lymphocytes % 22.6 % (21.3-54.2); Mean Corpuscular HGB Conc 32.8 GM/DL (32-36); Mean Corpuscular Volume 95.5 FL (87-102); Mean Platelet Volume 11.4 FL (9.6-12.0); Monocytes % 14.4 % (1.7-12.7); Neutrophils % 62.5 % (38.7-73.9); Platelet Count 139 T/CUMM (130-400); Red Blood Count 3.54 MC/CUMM (3.8-5.5); Red Cell Distribution Width 15.5 % (9.3-17.3); White Blood Count 3.8 T/CUMM (4-12)
[2020-09-06 05:53] LABS: Blood Urea Nitrogen 16 MG/DL (7-18); Carbon Dioxide 38 MMOL/L (21-32); Estimated Glom Filtration Rate 204 ML/MIN; Glucose 121 MG/DL (74-106); Osmolality,Calculated 276.7 MOS/KG (273-304); Potassium 3.9 MMOL/L (3.5-5.1); Sodium 138 MMOL/L (136-145)
[2020-09-06] MEDS: diphenhydrAMINE 25 MG/10 ML UDCUP PER TUBE PRN ×2 (06:30→15:17)
[2020-09-06] MEDS: LIDOCAINE 5% PATCH TRANSDERM SCH (08:58)
[2020-09-06] MEDS: BACLOFEN 20 MG TABLET PO SCH ×4 (08:58→22:01)
[2020-09-06] MEDS: PANTOPRAZOLE 40 MG VIAL IV SCH (08:58)
[2020-09-06] MEDS: APIXABAN 5 MG TABLET PER TUBE SCH ×2 (08:58→22:01)
[2020-09-06] MEDS: OXYBUTYNIN XL 15 MG TABLET PO SCH (08:58)
[2020-09-06] MEDS: HYDROCORTISONE 1% CREAM 28 GM TUBE TOP PRN (12:05)
[2020-09-06] MEDS ORDERED: VANCOMYCIN INJ 1,000 MG in SODIUM CHLORIDE 0.9% 250 ML IV ONE (13:26)
[2020-09-06] MEDS ORDERED: VANCOMYCIN INJ 1,500 MG in SODIUM CHLORIDE 0.9% 500 ML IV ONE (14:30)
[2020-09-07] MEDS: ALBUTEROL/IPRATROPIUM 3 ML NEB RESP TX SCH ×3 (00:46→19:37)
[2020-09-07 05:08] LABS: Basophils % 0.3 % (0.0-0.8); Hematocrit 33.5 VOL% (35.7-47.0); Hemoglobin 10.7 GM/DL (12.0-16.0); Immature Granulocytes % 0.5 %; Immature Granulocytes Absolute 0.02 #; Lymphocytes # 0.7 10*3/uL (1.4-4.0); Lymphocytes % 19.7 % (21.3-54.2); Mean Corpuscular HGB Conc 31.9 GM/DL (32-36); Mean Corpuscular Volume 96.3 FL (87-102); Mean Platelet Volume 11.3 FL (9.6-12.0); Monocytes % 12.8 % (1.7-12.7); Neutrophils % 66.7 % (38.7-73.9); Platelet Count 123 T/CUMM (130-400); Red Blood Count 3.48 MC/CUMM (3.8-5.5); Red Cell Distribution Width 15.5 % (9.3-17.3); White Blood Count 3.8 T/CUMM (4-12)
[2020-09-07 05:26] LABS: Hypochromasia 1+
[2020-09-07 05:27] LABS: Macrocytosis Slight; Platelet Estimate Adequate
[2020-09-07 05:34] LABS: Blood Urea Nitrogen 16 MG/DL (7-18); Calcium 9.2 MG/DL (8.5-10.1); Carbon Dioxide 34 MMOL/L (21-32); Glucose 116 MG/DL (74-106); Sodium 136 MMOL/L (136-145)
[2020-09-07 05:35] LABS: Estimated Glom Filtration Rate 212 ML/MIN
[2020-09-07] MEDS: LIDOCAINE 5% PATCH TRANSDERM SCH (08:35)
[2020-09-07] MEDS: APIXABAN 5 MG TABLET PER TUBE SCH ×2 (08:35→20:09)
[2020-09-07] MEDS: OMEPRAZOLE ODT 20 MG TABLET PER TUBE SCH (08:35)
[2020-09-07] MEDS: OXYBUTYNIN XL 15 MG TABLET PO SCH (08:35)
[2020-09-07] MEDS: BACLOFEN 20 MG TABLET PO SCH ×4 (08:35→20:10)
[2020-09-07] MEDS: POLYETHYLENE GLYCOL POWDER 17 GM PACK PO PRN (10:21)
[2020-09-07] MEDS: diphenhydrAMINE 25 MG/10 ML UDCUP PER TUBE PRN ×2 (12:55→22:15)
[2020-09-08] MEDS: ALBUTEROL/IPRATROPIUM 3 ML NEB RESP TX SCH ×4 (00:31→19:22)
[2020-09-08 04:10] LABS: Hematocrit 33.1 VOL% (35.7-47.0); Hemoglobin 10.4 GM/DL (12.0-16.0); Immature Granulocytes % 0.7 %; Immature Granulocytes Absolute 0.03 #; Lymphocytes # 0.7 10*3/uL (1.4-4.0); Lymphocytes % 15.5 % (21.3-54.2); Mean Corpuscular HGB Conc 31.4 GM/DL (32-36); Mean Corpuscular Volume 97.4 FL (87-102); Mean Platelet Volume 11.1 FL (9.6-12.0); Monocytes % 10.7 % (1.7-12.7); Neutrophils % 73.1 % (38.7-73.9); Platelet Count 142 T/CUMM (130-400); Red Cell Distribution Width 15.3 % (9.3-17.3); White Blood Count 4.4 T/CUMM (4-12)
[2020-09-08 04:24] LABS: ABG Base Excess 12.4 MMOL/L (-2.5-2.5); ABG HCO3 36.1 MMOL/L (20-26); ABG Oxygen Saturation 94.7 % (95-100); ABG PCO2 60.6 MM HG (35-48); ABG PH 7.421 (7.35-7.45); ABG PO2 69.2 MM HG (80-95); ABG TCO2 35.4 MMOL/L (23-27)
[2020-09-08] MEDS: hydrALAZINE 20 MG/1 ML VIAL IV PRN (05:37)
[2020-09-08 06:13] LABS: Blood Urea Nitrogen 15 MG/DL (7-18); Calcium 9.1 MG/DL (8.5-10.1); Carbon Dioxide 36 MMOL/L (21-32); Estimated Glom Filtration Rate 210 ML/MIN; Glucose 129 MG/DL (74-106); Potassium 3.7 MMOL/L (3.5-5.1); Sodium 136 MMOL/L (136-145)
[2020-09-08] MEDS: OMEPRAZOLE ODT 20 MG TABLET PER TUBE SCH (09:03)
[2020-09-08] MEDS: BACLOFEN 20 MG TABLET PO SCH ×4 (09:03→20:18)
[2020-09-08] MEDS: APIXABAN 5 MG TABLET PER TUBE SCH ×2 (09:03→20:17)
[2020-09-08] MEDS: OXYBUTYNIN XL 15 MG TABLET PO SCH (09:04)
[2020-09-08] MEDS: LIDOCAINE 5% PATCH TRANSDERM SCH (09:05)
[2020-09-08] MEDS: fentaNYL 25 MCG/HR PATCH TRANSDERM SCH (09:05)
[2020-09-08] MEDS: POTASSIUM CHLORIDE 20 MEQ/15 ML UDCUP PER TUBE PRN ×2 (12:51→15:08)
[2020-09-08] MEDS: ALPRAZolam 0.25 MG TABLET PER TUBE PRN (15:08)
[2020-09-08] MEDS: POLYETHYLENE GLYCOL POWDER 17 GM PACK PO PRN (16:43)
[2020-09-08] MEDS: ALBUTEROL 2.5 MG/3 ML NEB RESP TX PRN (16:54)
[2020-09-09] MEDS: ALBUTEROL/IPRATROPIUM 3 ML NEB RESP TX SCH ×5 (00:32→19:37)
[2020-09-09] MEDS: ALBUTEROL 2.5 MG/3 ML NEB RESP TX PRN ×2 (03:45→17:35)
[2020-09-09] MEDS: guaiFENesin 200 MG/10 ML UDCUP PO PRN (04:13)
[2020-09-09] MEDS ORDERED: FUROSEMIDE 20 MG/2 ML VIAL IV ONE (04:23)
[2020-09-09 05:32] LABS: Basophils % 0.3 % (0.0-0.8); Eosinophils % 0.5 % (0.00-10.9); Hematocrit 37.8 VOL% (35.7-47.0); Hemoglobin 11.8 GM/DL (12.0-16.0); Immature Granulocytes % 0.5 %; Immature Granulocytes Absolute 0.02 #; Lymphocytes # 0.6 10*3/uL (1.4-4.0); Lymphocytes % 14.3 % (21.3-54.2); Mean Corpuscular HGB Conc 31.2 GM/DL (32-36); Mean Corpuscular Volume 97.7 FL (87-102); Monocytes % 10.8 % (1.7-12.7); Neutrophils % 73.6 % (38.7-73.9); Platelet Count 126 T/CUMM (130-400); Red Blood Count 3.87 MC/CUMM (3.8-5.5); Red Cell Distribution Width 15.4 % (9.3-17.3)
[2020-09-09 05:45] LABS: Blood Urea Nitrogen 15 MG/DL (7-18); Calcium 8.9 MG/DL (8.5-10.1); Carbon Dioxide 32 MMOL/L (21-32); Estimated Glom Filtration Rate 210 ML/MIN; Glucose 107 MG/DL (74-106); Osmolality,Calculated 270.1 MOS/KG (273-304); Potassium 4.7 MMOL/L (3.5-5.1); Sodium 135 MMOL/L (136-145)
[2020-09-09] MEDS: OXYBUTYNIN XL 15 MG TABLET PO SCH (08:47)
[2020-09-09] MEDS: OMEPRAZOLE ODT 20 MG TABLET PER TUBE SCH (08:48)
[2020-09-09] MEDS: BACLOFEN 20 MG TABLET PO SCH ×4 (08:48→20:17)
[2020-09-09] MEDS: LIDOCAINE 5% PATCH TRANSDERM SCH (08:55)
[2020-09-09] MEDS: APIXABAN 5 MG TABLET PER TUBE SCH ×2 (14:15→20:18)
[2020-09-10] MEDS: ALBUTEROL/IPRATROPIUM 3 ML NEB RESP TX SCH ×3 (00:07→13:30)
[2020-09-10] MEDS: ALPRAZolam 0.25 MG TABLET PER TUBE PRN (05:13)
[2020-09-10] MEDS: OXYBUTYNIN XL 15 MG TABLET PO SCH (09:34)
[2020-09-10] MEDS: OMEPRAZOLE ODT 20 MG TABLET PER TUBE SCH (09:34)
[2020-09-10] MEDS: BACLOFEN 20 MG TABLET PO SCH ×4 (09:34→20:12)
[2020-09-10] MEDS: APIXABAN 5 MG TABLET PER TUBE SCH ×2 (09:34→20:12)
[2020-09-10] MEDS: LIDOCAINE 5% PATCH TRANSDERM SCH (09:35)
[2020-09-10] MEDS ORDERED: ACETYLCYSTEINE 20% 800 MG/4 ML VIAL RESP TX SCH (11:00)
[2020-09-10] MEDS: BUDESONIDE 0.5 MG/2 ML NEB RESP TX SCH ×2 (13:30→19:20)
[2020-09-10] MEDS: hydrALAZINE 20 MG/1 ML VIAL IV PRN (14:03)
[2020-09-10] MEDS ORDERED: LEVALBUTEROL 1.25 MG/3 ML NEB RESP TX PRN (16:16)
[2020-09-10] MEDS: DILTIAZEM 30 MG TABLET PO SCH (17:15)
[2020-09-10] MEDS: FUROSEMIDE 40 MG/4 ML VIAL IV SCH (17:16)
[2020-09-10] MEDS ORDERED: TUBERCULIN SKIN TEST 0.1 ML SYRINGE INTRADERM ONE (17:30)
[2020-09-10] MEDS: METOPROLOL TARTRATE 5 MG/5 ML VIAL IV PRN ×2 (18:20→21:36)
[2020-09-10] MEDS: IPRATROPIUM 500 MCG/2.5 ML NEB RESP TX SCH (19:20)
[2020-09-10] MEDS: LEVALBUTEROL 1.25 MG/3 ML NEB RESP TX SCH (19:20)
[2020-09-10] MEDS: DICLOFENAC 1% GEL 100 GM TUBE TOP SCH (20:26)
[2020-09-10] MEDS: ACETAMINOPHEN 325 MG TABLET PO PRN (21:37)
[2020-09-11] MEDS ORDERED: ACETAMINOPHEN 650 MG SUPP RECTAL ONE (00:06)
[2020-09-11] MEDS: METOPROLOL TARTRATE 5 MG/5 ML VIAL IV PRN (00:10)
[2020-09-11] MEDS ORDERED: NOREPINEPHRINE 4 MG/4 ML VIAL IV ONE (00:15)
[2020-09-11] MEDS: NOREPINEPHRINE 8 MG in SODIUM CHLORIDE 0.9% 242 ML IV PRN ×2 (00:18→06:40)
[2020-09-11 00:22] LABS: ABG Base Excess 2.5 MMOL/L (-2.5-2.5); ABG HCO3 25.2 MMOL/L (20-26); ABG PCO2 33.7 MM HG (35-48); ABG PH 7.492 (7.35-7.45); ABG PO2 85.5 MM HG (80-95); ABG TCO2 26.3 MMOL/L (23-27)
[2020-09-11 00:48] LABS: Calcium 9.5 MG/DL (8.5-10.1); Osmolality,Calculated 269.7 MOS/KG (273-304); Potassium 4.7 MMOL/L (3.5-5.1)
[2020-09-11] MEDS ORDERED: KETOROLAC 30 MG/1 ML VIAL IV ONE (00:55)
[2020-09-11] MEDS: DILTIAZEM 30 MG TABLET PO SCH ×5 (01:06→20:45)
[2020-09-11] MEDS ORDERED: fentaNYL 100 MCG/2 ML VIAL IV PRN (02:13)
[2020-09-11 03:21] LABS: Allen Test Positive; Pt O2 Delivery Device Ventilator
[2020-09-11 03:24] LABS: ABG Base Excess 1.8 MMOL/L (-2.5-2.5); ABG HCO3 21.8 MMOL/L (20-26); ABG Oxygen Saturation 98.9 % (95-100); ABG PCO2 24.2 MM HG (35-48); ABG PH 7.572 (7.35-7.45); ABG PO2 112.5 MM HG (80-95); ABG TCO2 22.5 MMOL/L (23-27)
[2020-09-11 03:39] LABS: Basophils % 0.1 % (0.0-0.8); Hematocrit 47.4 VOL% (35.7-47.0); Hemoglobin 15.4 GM/DL (12.0-16.0); Immature Granulocytes % 0.7 %; Immature Granulocytes Absolute 0.18 #; Lymphocytes # 1.7 10*3/uL (1.4-4.0); Lymphocytes % 6.8 % (21.3-54.2); Mean Corpuscular HGB Conc 32.5 GM/DL (32-36); Mean Corpuscular Volume 95.4 FL (87-102); Mean Platelet Volume 11.4 FL (9.6-12.0); Monocytes % 9.9 % (1.7-12.7); NRBC # 0.02 10*3/uL; Neutrophils % 82.5 % (38.7-73.9); Platelet Count 335 T/CUMM (130-400); Red Blood Count 4.97 MC/CUMM (3.8-5.5); Red Cell Distribution Width 15.9 % (9.3-17.3); White Blood Count 24.4 T/CUMM (4-12)
[2020-09-11 04:01] LABS: Calcium 9.8 MG/DL (8.5-10.1); Osmolality,Calculated 269.8 MOS/KG (273-304); Potassium 4.4 MMOL/L (3.5-5.1)
[2020-09-11 04:07] LABS: Lymphocytes 9 % (20-55); Platelet Estimate Adequate; Segmented Neutrophils 88 % (50-85); Total Cells Counted 100
[2020-09-11] MEDS: LINEZOLID INJ 600 MG in PREMIX 1 EACH IV SCH ×2 (06:18→17:41)
[2020-09-11] MEDS: LEVALBUTEROL 1.25 MG/3 ML NEB RESP TX SCH ×4 (07:50→19:02)
[2020-09-11] MEDS: BUDESONIDE 0.5 MG/2 ML NEB RESP TX SCH ×2 (07:50→19:02)
[2020-09-11] MEDS: IPRATROPIUM 500 MCG/2.5 ML NEB RESP TX SCH ×4 (07:50→19:02)
[2020-09-11] MEDS: ACETAMINOPHEN 325 MG TABLET PO PRN ×2 (08:00→13:38)
[2020-09-11] MEDS: FUROSEMIDE 40 MG/4 ML VIAL IV SCH (08:01)
[2020-09-11] MEDS: BACLOFEN 20 MG TABLET PO SCH ×4 (08:53→21:30)
[2020-09-11] MEDS: OMEPRAZOLE ODT 20 MG TABLET PER TUBE SCH (08:53)
[2020-09-11] MEDS: APIXABAN 5 MG TABLET PER TUBE SCH ×2 (08:53→21:30)
[2020-09-11] MEDS: LEVOFLOXACIN 750 MG TABLET PEG SCH (08:53)
[2020-09-11] MEDS: guaiFENesin 200 MG/10 ML UDCUP PO PRN (08:53)
[2020-09-11] MEDS: FLUCONAZOLE INJ 200 MG in PREMIX 1 EACH IV SCH (09:08)
[2020-09-11] MEDS: DICLOFENAC 1% GEL 100 GM TUBE TOP SCH ×3 (10:18→21:30)
[2020-09-11] MEDS: PHENYLEPHRINE DRIP 40 MG/250 ML PREMIX IV PRN (13:48)
[2020-09-11] MEDS ORDERED: SODIUM CHLORIDE 0.9% 1,000 ML IV ONE (14:01)
[2020-09-11 14:08] LABS: ABG HCO3 26.2 MMOL/L (20-26); ABG Oxygen Saturation 97.4 % (95-100); ABG PCO2 23.2 MM HG (35-48); ABG PO2 77.5 MM HG (80-95)
[2020-09-11] MEDS: SODIUM CHLORIDE 0.9% 1,000 ML IV SCH (15:21)
[2020-09-11 20:40] LABS: ABG Base Excess 6.3 MMOL/L (-2.5-2.5); ABG HCO3 30.2 MMOL/L (20-26); ABG Oxygen Saturation 98.2 % (95-100); ABG PCO2 38.9 MM HG (35-48); ABG PH 7.495 (7.35-7.45); ABG PO2 97.3 MM HG (80-95); ABG TCO2 25.4 MMOL/L (23-27); Allen Test Positive; Pt O2 Delivery Device Ventilator
[2020-09-11 20:54] LABS: Calcium 8.1 MG/DL (8.5-10.1); Osmolality,Calculated 284.2 MOS/KG (273-304)
[2020-09-11 20:57] LABS: Potassium 2.3 MMOL/L (3.5-5.1)
[2020-09-11] MEDS ORDERED: MAGNESIUM SULF RIDER 2 GM in PREMIX 1 EACH IV ONE (21:02)
[2020-09-11] MEDS ORDERED: POTASSIUM CHLORIDE 20 MEQ/15 ML UDCUP PO ONE (21:05)
[2020-09-11] MEDS: LIDOCAINE 5% PATCH TRANSDERM SCH (21:30)
[2020-09-12] MEDS: PHENYLEPHRINE DRIP 40 MG/250 ML PREMIX IV PRN ×3 (00:15→17:12)
[2020-09-12] MEDS: POTASSIUM CHLORIDE 20 MEQ/15 ML UDCUP PER TUBE PRN ×6 (01:00→12:55)
[2020-09-12 03:20] LABS: ABG HCO3 29.6 MMOL/L (20-26); ABG Oxygen Saturation 97.3 % (95-100); ABG PCO2 39.3 MM HG (35-48); ABG PH 7.495 (7.35-7.45); ABG PO2 91.6 MM HG (80-95); ABG TCO2 30.8 MMOL/L (23-27); Allen Test Positive; Pt O2 Delivery Device Ventilator
[2020-09-12] MEDS: DILTIAZEM 30 MG TABLET PO SCH ×4 (03:30→22:37)
[2020-09-12] MEDS: SODIUM CHLORIDE 0.9% 1,000 ML IV SCH ×3 (03:30→22:54)
[2020-09-12 05:29] LABS: Basophils % 0.1 % (0.0-0.8); Hematocrit 39.9 VOL% (35.7-47.0); Immature Granulocytes % 0.5 %; Immature Granulocytes Absolute 0.07 #; Lymphocytes # 1.3 10*3/uL (1.4-4.0); Lymphocytes % 8.5 % (21.3-54.2); Mean Corpuscular HGB Conc 33.6 GM/DL (32-36); Mean Corpuscular Volume 92.4 FL (87-102); Mean Platelet Volume 11.4 FL (9.6-12.0); Monocytes % 16.2 % (1.7-12.7); Neutrophils % 74.7 % (38.7-73.9); Red Blood Count 4.32 MC/CUMM (3.8-5.5); Red Cell Distribution Width 15.8 % (9.3-17.3)
[2020-09-12 05:31] LABS: Hemoglobin 13.4 GM/DL (12.0-16.0); Platelet Count 215 T/CUMM (130-400); White Blood Count 15.4 T/CUMM (4-12)
[2020-09-12 05:41] LABS: Albumin 2.4 G/DL (3.4-5.0); Bilirubin,Total 1.3 MG/DL (0.2-1.0); Calcium 8.2 MG/DL (8.5-10.1); Osmolality,Calculated 283.7 MOS/KG (273-304); Potassium 3.2 MMOL/L (3.5-5.1); Total Protein 5.5 G/DL (5.0-7.5)
[2020-09-12 05:43] LABS: Troponin I 0.711 NG/ML (0.00-0.045)
[2020-09-12 05:45] LABS: Band Neutrophils 1 % (0-10); Hypochromasia Slight; Lymphocytes 6 % (20-55); Microcytosis Slight; Platelet Estimate Adequate; Segmented Neutrophils 80 % (50-85); Total Cells Counted 100
[2020-09-12] MEDS: LINEZOLID INJ 600 MG in PREMIX 1 EACH IV SCH ×2 (06:05→17:45)
[2020-09-12] MEDS: IPRATROPIUM 500 MCG/2.5 ML NEB RESP TX SCH ×4 (07:35→19:23)
[2020-09-12] MEDS: BUDESONIDE 0.5 MG/2 ML NEB RESP TX SCH ×2 (07:35→19:23)
[2020-09-12] MEDS: LEVALBUTEROL 1.25 MG/3 ML NEB RESP TX SCH ×4 (07:35→19:23)
[2020-09-12] MEDS: FLUCONAZOLE INJ 200 MG in PREMIX 1 EACH IV SCH (09:06)
[2020-09-12] MEDS: LEVOFLOXACIN 750 MG TABLET PEG SCH (09:07)
[2020-09-12] MEDS: OMEPRAZOLE ODT 20 MG TABLET PER TUBE SCH (09:07)
[2020-09-12] MEDS: BACLOFEN 20 MG TABLET PO SCH ×4 (09:07→20:12)
[2020-09-12] MEDS: APIXABAN 5 MG TABLET PER TUBE SCH ×2 (09:07→20:12)
[2020-09-12] MEDS: DICLOFENAC 1% GEL 100 GM TUBE TOP SCH ×3 (09:09→20:12)
[2020-09-12] MEDS ORDERED: ALBUMIN 25% 50 GM in PREMIX 1 EACH IV ONE (12:24)
[2020-09-12 14:06] LABS: Bilirubin,Urine Negative (Negative); Blood, Urine Moderate mg/dL (Negative); Glucose,Urine (UA) Negative (Negative); Ketones,Urine Negative (Negative); Mucus,Urine Occasional /LPF (Occasional); Nitrite,Urine Negative (Negative); Protein,Urine 30 MG/DL; RBC,Urine 41 /HPF (0-4); Squamous Epithelial Cell,Urine Occasional /HPF (0-10); Urine Appearance CLOUDY (Clear); Urine Color Yellow (Yellow); Urine Specific Gravity 1.024 (1.001-1.035); Urine Urobilinogen < 2.0 EU/DL (0.2-1.0); WBC,Urine 23 /HPF (0-6)
[2020-09-12] MEDS: LIDOCAINE 5% PATCH TRANSDERM SCH (20:12)
[2020-09-13] MEDS: DILTIAZEM 30 MG TABLET PO SCH ×4 (01:49→21:28)
[2020-09-13] MEDS: PHENYLEPHRINE DRIP 40 MG/250 ML PREMIX IV PRN (02:14)
[2020-09-13 03:37] LABS: Allen Test Positive; Pt O2 Delivery Device Ventilator
[2020-09-13 03:40] LABS: ABG Base Excess 4.6 MMOL/L (-2.5-2.5); ABG HCO3 28.5 MMOL/L (20-26); ABG Oxygen Saturation 94.2 % (95-100); ABG PH 7.456 (7.35-7.45); ABG PO2 66.4 MM HG (80-95); ABG TCO2 25.7 MMOL/L (23-27)
[2020-09-13 04:17] LABS: Basophils % 0.1 % (0.0-0.8); Immature Granulocytes % 0.3 %; Immature Granulocytes Absolute 0.03 #; Lymphocytes % 10.4 % (21.3-54.2); Mean Corpuscular HGB Conc 30.9 GM/DL (32-36); Mean Corpuscular Volume 98.8 FL (87-102); Mean Platelet Volume 11.2 FL (9.6-12.0); Monocytes % 10.2 % (1.7-12.7); Platelet Count 153 T/CUMM (130-400); Red Blood Count 3.44 MC/CUMM (3.8-5.5); Red Cell Distribution Width 16.6 % (9.3-17.3); White Blood Count 9.1 T/CUMM (4-12)
[2020-09-13 04:19] LABS: Hemoglobin 10.5 GM/DL (12.0-16.0)
[2020-09-13 04:44] LABS: Calcium 8.8 MG/DL (8.5-10.1); Osmolality,Calculated 275.7 MOS/KG (273-304); Potassium 3.9 MMOL/L (3.5-5.1)
[2020-09-13] MEDS: LINEZOLID INJ 600 MG in PREMIX 1 EACH IV SCH ×2 (05:44→18:30)
[2020-09-13] MEDS: POTASSIUM CHLORIDE 20 MEQ/15 ML UDCUP PER TUBE PRN ×2 (05:45→08:59)
[2020-09-13] MEDS: IPRATROPIUM 500 MCG/2.5 ML NEB RESP TX SCH ×4 (07:18→19:20)
[2020-09-13] MEDS: BUDESONIDE 0.5 MG/2 ML NEB RESP TX SCH ×2 (07:18→19:20)
[2020-09-13] MEDS: HYDROmorphone 2 MG/1 ML VIAL IV PRN (07:34)
[2020-09-13] MEDS: LEVALBUTEROL 1.25 MG/3 ML NEB RESP TX SCH ×5 (07:38→19:20)
[2020-09-13] MEDS: SODIUM CHLORIDE 0.9% 1,000 ML IV SCH ×3 (08:58→19:02)
[2020-09-13] MEDS: APIXABAN 5 MG TABLET PER TUBE SCH ×2 (08:59→20:54)
[2020-09-13] MEDS: POLYETHYLENE GLYCOL POWDER 17 GM PACK PO PRN (08:59)
[2020-09-13] MEDS: LEVOFLOXACIN 750 MG TABLET PEG SCH (09:00)
[2020-09-13] MEDS: BACLOFEN 20 MG TABLET PO SCH ×4 (09:00→21:02)
[2020-09-13] MEDS: ALPRAZolam 0.25 MG TABLET PER TUBE PRN (09:00)
[2020-09-13] MEDS: OMEPRAZOLE ODT 20 MG TABLET PER TUBE SCH (09:00)
[2020-09-13] MEDS: DICLOFENAC 1% GEL 100 GM TUBE TOP SCH ×3 (09:02→21:03)
[2020-09-13] MEDS: FLUCONAZOLE INJ 200 MG in PREMIX 1 EACH IV SCH (09:08)
[2020-09-13] MEDS: LIDOCAINE 5% PATCH TRANSDERM SCH (20:54)
[2020-09-14] MEDS: ALPRAZolam 0.25 MG TABLET PER TUBE PRN (02:15)
[2020-09-14 04:25] LABS: Allen Test Positive; Pt O2 Delivery Device Ventilator
[2020-09-14 04:26] LABS: ABG Base Excess 1.5 MMOL/L (-2.5-2.5); ABG HCO3 25.8 MMOL/L (20-26); ABG PCO2 31.2 MM HG (35-48); ABG PH 7.497 (7.35-7.45); ABG TCO2 21.7 MMOL/L (23-27)
[2020-09-14 04:58] LABS: Basophils % 0.2 % (0.0-0.8); Hematocrit 32.4 VOL% (35.7-47.0); Immature Granulocytes % 0.7 %; Immature Granulocytes Absolute 0.04 #; Lymphocytes # 0.8 10*3/uL (1.4-4.0); Lymphocytes % 13.8 % (21.3-54.2); Mean Corpuscular HGB Conc 30.9 GM/DL (32-36); Mean Corpuscular Volume 99.7 FL (87-102); Mean Platelet Volume 11.8 FL (9.6-12.0); Monocytes % 8.1 % (1.7-12.7); Neutrophils % 77.2 % (38.7-73.9); Platelet Count 132 T/CUMM (130-400); Red Blood Count 3.25 MC/CUMM (3.8-5.5); Red Cell Distribution Width 16.9 % (9.3-17.3); White Blood Count 5.9 T/CUMM (4-12)
[2020-09-14 05:05] LABS: Blood Urea Nitrogen 13 MG/DL (7-18); Calcium 8.9 MG/DL (8.5-10.1); Carbon Dioxide 25 MMOL/L (21-32); Estimated Glom Filtration Rate 206 ML/MIN; Glucose 82 MG/DL (74-106); Osmolality,Calculated 275.5 MOS/KG (273-304); Potassium 3.6 MMOL/L (3.5-5.1); Sodium 139 MMOL/L (136-145)
[2020-09-14] MEDS: HYDROmorphone 2 MG/1 ML VIAL IV PRN (05:15)
[2020-09-14] MEDS: SODIUM CHLORIDE 0.9% 1,000 ML IV SCH ×3 (05:30→16:11)
[2020-09-14] MEDS: PHENYLEPHRINE DRIP 40 MG/250 ML PREMIX IV PRN (06:00)
[2020-09-14] MEDS: LINEZOLID INJ 600 MG in PREMIX 1 EACH IV SCH ×2 (06:00→17:50)
[2020-09-14] MEDS: BUDESONIDE 0.5 MG/2 ML NEB RESP TX SCH ×2 (07:23→19:03)
[2020-09-14] MEDS: LEVALBUTEROL 1.25 MG/3 ML NEB RESP TX SCH ×4 (07:23→19:03)
[2020-09-14] MEDS: IPRATROPIUM 500 MCG/2.5 ML NEB RESP TX SCH ×4 (07:23→19:03)
[2020-09-14] MEDS: DILTIAZEM 30 MG TABLET PO SCH ×5 (08:07→21:27)
[2020-09-14] MEDS: DICLOFENAC 1% GEL 100 GM TUBE TOP SCH ×3 (08:29→21:31)
[2020-09-14] MEDS: POTASSIUM CHLORIDE 20 MEQ/15 ML UDCUP PER TUBE PRN ×2 (08:30→10:40)
[2020-09-14] MEDS: LEVOFLOXACIN 750 MG TABLET PEG SCH (08:31)
[2020-09-14] MEDS: APIXABAN 5 MG TABLET PER TUBE SCH ×2 (08:31→21:30)
[2020-09-14] MEDS: BACLOFEN 20 MG TABLET PO SCH ×4 (08:32→21:30)
[2020-09-14] MEDS: OMEPRAZOLE ODT 20 MG TABLET PER TUBE SCH (08:32)
[2020-09-14] MEDS: LIDOCAINE 5% PATCH TRANSDERM SCH (21:30)
[2020-09-15] MEDS: SODIUM CHLORIDE 0.9% 1,000 ML IV SCH ×3 (00:55→10:32)
[2020-09-15 04:01] LABS: Eosinophils % 0.2 % (0.00-10.9); Hematocrit 28.1 VOL% (35.7-47.0); Hemoglobin 8.4 GM/DL (12.0-16.0); Immature Granulocytes % 0.8 %; Immature Granulocytes Absolute 0.04 #; Lymphocytes # 0.6 10*3/uL (1.4-4.0); Mean Corpuscular HGB Conc 29.9 GM/DL (32-36); Mean Corpuscular Volume 102.2 FL (87-102); Mean Platelet Volume 11.9 FL (9.6-12.0); Monocytes % 6.4 % (1.7-12.7); Neutrophils % 80.6 % (38.7-73.9); Platelet Count 114 T/CUMM (130-400); Red Blood Count 2.75 MC/CUMM (3.8-5.5); Red Cell Distribution Width 17.2 % (9.3-17.3); White Blood Count 5.3 T/CUMM (4-12)
[2020-09-15 04:08] LABS: Allen Test Positive; Pt O2 Delivery Device Ventilator
[2020-09-15 04:12] LABS: ABG Base Excess 0.5 MMOL/L (-2.5-2.5); ABG HCO3 24.9 MMOL/L (20-26); ABG PCO2 35.1 MM HG (35-48); ABG PH 7.447 (7.35-7.45); ABG TCO2 22.4 MMOL/L (23-27)
[2020-09-15 04:14] LABS: Blood Urea Nitrogen 11 MG/DL (7-18); Carbon Dioxide 24 MMOL/L (21-32); Estimated Glom Filtration Rate 207 ML/MIN; Glucose 117 MG/DL (74-106); Osmolality,Calculated 282.1 MOS/KG (273-304); Potassium 3.7 MMOL/L (3.5-5.1); Sodium 142 MMOL/L (136-145)
[2020-09-15] MEDS: LINEZOLID INJ 600 MG in PREMIX 1 EACH IV SCH ×2 (05:45→18:30)
[2020-09-15] MEDS: LEVALBUTEROL 1.25 MG/3 ML NEB RESP TX SCH ×4 (07:45→19:45)
[2020-09-15] MEDS: IPRATROPIUM 500 MCG/2.5 ML NEB RESP TX SCH ×4 (07:45→19:45)
[2020-09-15] MEDS: BUDESONIDE 0.5 MG/2 ML NEB RESP TX SCH ×2 (07:45→19:45)
[2020-09-15] MEDS: DILTIAZEM 30 MG TABLET PO SCH ×3 (09:10→20:00)
[2020-09-15] MEDS: LEVOFLOXACIN 750 MG TABLET PEG SCH (09:20)
[2020-09-15] MEDS: OMEPRAZOLE ODT 20 MG TABLET PER TUBE SCH (09:21)
[2020-09-15] MEDS: APIXABAN 5 MG TABLET PER TUBE SCH ×2 (09:21→20:00)
[2020-09-15] MEDS: BACLOFEN 20 MG TABLET PO SCH ×4 (09:22→20:05)
[2020-09-15] MEDS: DICLOFENAC 1% GEL 100 GM TUBE TOP SCH ×3 (09:26→20:01)
[2020-09-15] MEDS ORDERED: FUROSEMIDE 40 MG/4 ML VIAL IV ONE (14:01)
[2020-09-15] MEDS: HYDROmorphone 2 MG/1 ML VIAL IV PRN ×2 (14:40→19:40)
[2020-09-15] MEDS: LIDOCAINE 5% PATCH TRANSDERM SCH (20:00)
[2020-09-16 04:36] LABS: ABG Base Excess 4.7 MMOL/L (-2.5-2.5); ABG HCO3 28.7 MMOL/L (20-26); ABG Oxygen Saturation 99.7 % (95-100); ABG PCO2 45.2 MM HG (35-48); ABG PH 7.426 (7.35-7.45)
[2020-09-16] MEDS: HYDROmorphone 2 MG/1 ML VIAL IV PRN ×3 (06:00→20:18)
[2020-09-16] MEDS: LINEZOLID INJ 600 MG in PREMIX 1 EACH IV SCH ×2 (06:37→17:04)
[2020-09-16] MEDS: IPRATROPIUM 500 MCG/2.5 ML NEB RESP TX SCH ×4 (07:50→19:41)
[2020-09-16] MEDS: LEVALBUTEROL 1.25 MG/3 ML NEB RESP TX SCH ×4 (07:50→19:41)
[2020-09-16] MEDS: BUDESONIDE 0.5 MG/2 ML NEB RESP TX SCH ×2 (07:50→19:41)
[2020-09-16] MEDS: DILTIAZEM 30 MG TABLET PO SCH ×3 (09:15→20:19)
[2020-09-16] MEDS: BACLOFEN 20 MG TABLET PO SCH ×4 (09:19→20:19)
[2020-09-16] MEDS: LEVOFLOXACIN 750 MG TABLET PEG SCH (09:19)
[2020-09-16] MEDS: APIXABAN 5 MG TABLET PER TUBE SCH ×2 (09:20→20:20)
[2020-09-16] MEDS: OMEPRAZOLE ODT 20 MG TABLET PER TUBE SCH (09:20)
[2020-09-16] MEDS: DICLOFENAC 1% GEL 100 GM TUBE TOP SCH ×3 (09:20→20:20)
[2020-09-16] MEDS: LIDOCAINE 5% PATCH TRANSDERM SCH (20:19)
[2020-09-17] MEDS: HYDROmorphone 2 MG/1 ML VIAL IV PRN ×4 (02:20→20:00)
[2020-09-17 03:43] LABS: ABG Base Excess 5.7 MMOL/L (-2.5-2.5); ABG HCO3 27.7 MMOL/L (20-26); ABG Oxygen Saturation 95.5 % (95-100); ABG PCO2 31.1 MM HG (35-48); ABG PH 7.567 (7.35-7.45); ABG PO2 72.1 MM HG (80-95); ABG TCO2 28.6 MMOL/L (23-27); Allen Test Positive; Pt O2 Delivery Device Ventilator
[2020-09-17 04:32] LABS: Hematocrit 29.6 VOL% (35.7-47.0); Hemoglobin 9.2 GM/DL (12.0-16.0); Immature Granulocytes % 0.7 %; Immature Granulocytes Absolute 0.04 #; Lymphocytes # 0.9 10*3/uL (1.4-4.0); Lymphocytes % 15.9 % (21.3-54.2); Mean Corpuscular HGB Conc 31.1 GM/DL (32-36); Mean Corpuscular Volume 99.7 FL (87-102); Mean Platelet Volume 11.9 FL (9.6-12.0); Neutrophils % 74.4 % (38.7-73.9); Platelet Count 144 T/CUMM (130-400); Red Blood Count 2.97 MC/CUMM (3.8-5.5); Red Cell Distribution Width 16.3 % (9.3-17.3); White Blood Count 5.9 T/CUMM (4-12)
[2020-09-17 04:50] LABS: Albumin 2.1 G/DL (3.4-5.0); Bilirubin,Total 0.9 MG/DL (0.2-1.0); Calcium 8.7 MG/DL (8.5-10.1); Osmolality,Calculated 271.8 MOS/KG (273-304); Potassium 3.5 MMOL/L (3.5-5.1); Total Protein 5.3 G/DL (6.4-8.2)
[2020-09-17] MEDS: LINEZOLID INJ 600 MG in PREMIX 1 EACH IV SCH ×2 (05:11→17:01)
[2020-09-17] MEDS: IPRATROPIUM 500 MCG/2.5 ML NEB RESP TX SCH ×4 (06:55→19:20)
[2020-09-17] MEDS: LEVALBUTEROL 1.25 MG/3 ML NEB RESP TX SCH ×4 (06:55→19:20)
[2020-09-17] MEDS: BUDESONIDE 0.5 MG/2 ML NEB RESP TX SCH ×2 (06:55→19:20)
[2020-09-17] MEDS: BACLOFEN 20 MG TABLET PO SCH ×4 (08:30→20:01)
[2020-09-17] MEDS: LEVOFLOXACIN 750 MG TABLET PEG SCH (08:30)
[2020-09-17] MEDS: DILTIAZEM 30 MG TABLET PO SCH ×3 (08:30→20:01)
[2020-09-17] MEDS: OMEPRAZOLE ODT 20 MG TABLET PER TUBE SCH (08:30)
[2020-09-17] MEDS: APIXABAN 5 MG TABLET PER TUBE SCH ×2 (08:30→20:01)
[2020-09-17] MEDS: DICLOFENAC 1% GEL 100 GM TUBE TOP SCH ×3 (08:30→20:02)
[2020-09-17] MEDS: LIDOCAINE 5% PATCH TRANSDERM SCH (20:01)
[2020-09-18] MEDS: HYDROmorphone 2 MG/1 ML VIAL IV PRN ×5 (03:16→19:18)
[2020-09-18 04:24] LABS: ABG Base Excess 5.7 MMOL/L (-2.5-2.5); ABG HCO3 29.6 MMOL/L (20-26); ABG Oxygen Saturation 98.9 % (95-100); ABG PCO2 38.9 MM HG (35-48); ABG PH 7.486 (7.35-7.45); ABG TCO2 26.5 MMOL/L (23-27); Allen Test Positive; Pt O2 Delivery Device Ventilator
[2020-09-18] MEDS: LINEZOLID INJ 600 MG in PREMIX 1 EACH IV SCH ×2 (05:08→17:11)
[2020-09-18 05:09] LABS: Basophils % 0.2 % (0.0-0.8); Hematocrit 27.8 VOL% (35.7-47.0); Hemoglobin 8.8 GM/DL (12.0-16.0); Immature Granulocytes Absolute 0.06 #; Lymphocytes # 1.2 10*3/uL (1.4-4.0); Lymphocytes % 20.6 % (21.3-54.2); Mean Corpuscular HGB Conc 31.7 GM/DL (32-36); Mean Corpuscular Volume 100.4 FL (87-102); Mean Platelet Volume 11.3 FL (9.6-12.0); Monocytes % 13.6 % (1.7-12.7); Neutrophils % 64.6 % (38.7-73.9); Platelet Count 153 T/CUMM (130-400); Red Blood Count 2.77 MC/CUMM (3.8-5.5); Red Cell Distribution Width 16.6 % (9.3-17.3)
[2020-09-18 05:25] LABS: Blood Urea Nitrogen 11 MG/DL (7-18); Calcium 8.4 MG/DL (8.5-10.1); Carbon Dioxide 27 MMOL/L (21-32); Estimated Glom Filtration Rate 206 ML/MIN; Glucose 101 MG/DL (74-106); Osmolality,Calculated 275.5 MOS/KG (273-304); Potassium 3.8 MMOL/L (3.5-5.1); Sodium 139 MMOL/L (136-145)
[2020-09-18] MEDS: BUDESONIDE 0.5 MG/2 ML NEB RESP TX SCH ×2 (06:59→20:13)
[2020-09-18] MEDS: IPRATROPIUM 500 MCG/2.5 ML NEB RESP TX SCH ×4 (06:59→20:13)
[2020-09-18] MEDS: LEVALBUTEROL 1.25 MG/3 ML NEB RESP TX SCH ×4 (06:59→20:13)
[2020-09-18] MEDS: DICLOFENAC 1% GEL 100 GM TUBE TOP SCH ×3 (08:10→20:13)
[2020-09-18] MEDS: BACLOFEN 20 MG TABLET PO SCH ×4 (09:49→20:13)
[2020-09-18] MEDS: APIXABAN 5 MG TABLET PER TUBE SCH ×2 (09:49→20:13)
[2020-09-18] MEDS: DILTIAZEM 30 MG TABLET PO SCH ×3 (09:50→20:13)
[2020-09-18] MEDS: OMEPRAZOLE ODT 20 MG TABLET PER TUBE SCH (09:50)
[2020-09-18] MEDS: LIDOCAINE 5% PATCH TRANSDERM SCH (20:13)
[2020-09-19] MEDS: HYDROmorphone 2 MG/1 ML VIAL IV PRN ×5 (02:04→17:51)
[2020-09-19 04:32] LABS: ABG Base Excess 6.4 MMOL/L (-2.5-2.5); ABG HCO3 29.7 MMOL/L (20-26); ABG Oxygen Saturation 98.2 % (95-100); ABG PCO2 37.4 MM HG (35-48); ABG PH 7.518 (7.35-7.45); ABG TCO2 30.9 MMOL/L (23-27); Allen Test Positive; Pt O2 Delivery Device Ventilator
[2020-09-19] MEDS: LINEZOLID INJ 600 MG in PREMIX 1 EACH IV SCH ×2 (05:00→17:04)
[2020-09-19] MEDS: LEVALBUTEROL 1.25 MG/3 ML NEB RESP TX SCH ×4 (07:13→19:11)
[2020-09-19] MEDS: IPRATROPIUM 500 MCG/2.5 ML NEB RESP TX SCH ×4 (07:13→19:11)
[2020-09-19] MEDS: BACLOFEN 20 MG TABLET PO SCH ×4 (09:01→20:11)
[2020-09-19] MEDS: DILTIAZEM 30 MG TABLET PO SCH ×3 (09:01→20:11)
[2020-09-19] MEDS: OMEPRAZOLE ODT 20 MG TABLET PER TUBE SCH (09:01)
[2020-09-19] MEDS: DICLOFENAC 1% GEL 100 GM TUBE TOP SCH ×3 (09:02→20:13)
[2020-09-19] MEDS: APIXABAN 5 MG TABLET PER TUBE SCH ×2 (09:02→20:11)
[2020-09-19] MEDS: BUDESONIDE 0.5 MG/2 ML NEB RESP TX SCH ×2 (11:16→19:11)
[2020-09-19] MEDS ORDERED: SODIUM CHLORIDE 0.9% 500 ML IV ONE (12:33)
[2020-09-19] MEDS: PHENYLEPHRINE DRIP 40 MG/250 ML PREMIX IV PRN (13:34)
[2020-09-19] MEDS: LIDOCAINE 5% PATCH TRANSDERM SCH (20:12)
[2020-09-20 04:35] LABS: ABG Base Excess 4.7 MMOL/L (-2.5-2.5); ABG HCO3 27.9 MMOL/L (20-26); ABG Oxygen Saturation 92.9 % (95-100); ABG PCO2 36.3 MM HG (35-48); ABG PH 7.503 (7.35-7.45); ABG PO2 63.6 MM HG (80-95)
[2020-09-20] MEDS: LINEZOLID INJ 600 MG in PREMIX 1 EACH IV SCH (05:18)
[2020-09-20 05:22] LABS: Basophils % 0.3 % (0.0-0.8); Eosinophils % 0.1 % (0.00-10.9); Hematocrit 38.8 VOL% (35.7-47.0); Immature Granulocytes % 2.2 %; Immature Granulocytes Absolute 0.19 #; Lymphocytes # 2.3 10*3/uL (1.4-4.0); Lymphocytes % 26.7 % (21.3-54.2); Mean Corpuscular HGB Conc 30.9 GM/DL (32-36); Mean Corpuscular Volume 100.5 FL (87-102); Mean Platelet Volume 10.9 FL (9.6-12.0); Monocytes % 17.7 % (1.7-12.7); NRBC # 0.04 10*3/uL; Platelet Count 291 T/CUMM (130-400); Red Blood Count 3.86 MC/CUMM (3.8-5.5); Red Cell Distribution Width 16.9 % (9.3-17.3); White Blood Count 8.6 T/CUMM (4-12)
[2020-09-20 05:37] LABS: Blood Urea Nitrogen 9 MG/DL (7-18); Calcium 9.2 MG/DL (8.5-10.1); Carbon Dioxide 28 MMOL/L (21-32); Estimated Glom Filtration Rate 205 ML/MIN; Glucose 100 MG/DL (74-106); Osmolality,Calculated 281.1 MOS/KG (273-304); Potassium 4.1 MMOL/L (3.5-5.1); Sodium 142 MMOL/L (136-145)
[2020-09-20 05:43] LABS: Hypochromasia 1+; Lymphocytes 22 % (20-55); Microcytosis 1+; Platelet Estimate Adequate; Segmented Neutrophils 60 % (50-85); Total Cells Counted 100
[2020-09-20] MEDS: LEVALBUTEROL 1.25 MG/3 ML NEB RESP TX SCH ×4 (07:58→19:23)
[2020-09-20] MEDS: BUDESONIDE 0.5 MG/2 ML NEB RESP TX SCH ×2 (07:58→19:23)
[2020-09-20] MEDS: IPRATROPIUM 500 MCG/2.5 ML NEB RESP TX SCH ×4 (07:58→19:23)
[2020-09-20] MEDS: APIXABAN 5 MG TABLET PER TUBE SCH ×2 (08:28→20:16)
[2020-09-20] MEDS: OMEPRAZOLE ODT 20 MG TABLET PER TUBE SCH (08:29)
[2020-09-20] MEDS: BACLOFEN 20 MG TABLET PO SCH ×4 (08:30→20:16)
[2020-09-20] MEDS: LINEZOLID 600 MG TABLET PEG SCH ×2 (08:30→20:19)
[2020-09-20] MEDS: DICLOFENAC 1% GEL 100 GM TUBE TOP SCH ×3 (09:28→20:17)
[2020-09-20] MEDS: DILTIAZEM 30 MG TABLET PO SCH ×3 (09:28→20:17)
[2020-09-20] MEDS: HYDROmorphone 2 MG/1 ML VIAL IV PRN ×4 (10:33→23:20)
[2020-09-20] MEDS: LIDOCAINE 5% PATCH TRANSDERM SCH (20:17)
[2020-09-21 04:45] LABS: Allen Test Positive; Pt O2 Delivery Device Ventilator
[2020-09-21 04:47] LABS: ABG HCO3 30.9 MMOL/L (20-26); ABG Oxygen Saturation 99.1 % (95-100); ABG PCO2 46.5 MM HG (35-48); ABG PH 7.445 (7.35-7.45); ABG TCO2 29.4 MMOL/L (23-27)
[2020-09-21] MEDS: BUDESONIDE 0.5 MG/2 ML NEB RESP TX SCH ×2 (07:29→19:20)
[2020-09-21] MEDS: LEVALBUTEROL 1.25 MG/3 ML NEB RESP TX SCH ×4 (07:29→19:20)
[2020-09-21] MEDS: IPRATROPIUM 500 MCG/2.5 ML NEB RESP TX SCH ×4 (07:29→19:20)
[2020-09-21] MEDS: HYDROmorphone 2 MG/1 ML VIAL IV PRN (08:46)
[2020-09-21] MEDS: BACLOFEN 20 MG TABLET PO SCH ×4 (08:47→20:13)
[2020-09-21] MEDS: LINEZOLID 600 MG TABLET PEG SCH ×2 (08:48→20:13)
[2020-09-21] MEDS: OMEPRAZOLE ODT 20 MG TABLET PER TUBE SCH (08:48)
[2020-09-21] MEDS: DILTIAZEM 30 MG TABLET PO SCH ×3 (08:49→20:13)
[2020-09-21] MEDS: APIXABAN 5 MG TABLET PER TUBE SCH ×2 (08:49→20:13)
[2020-09-21] MEDS: DICLOFENAC 1% GEL 100 GM TUBE TOP SCH ×3 (08:50→20:13)
[2020-09-21] MEDS: LIDOCAINE 5% PATCH TRANSDERM SCH (20:13)
[2020-09-22 03:21] LABS: ABG Base Excess 6.6 MMOL/L (-2.5-2.5); ABG HCO3 30.3 MMOL/L (20-26); ABG Oxygen Saturation 97.2 % (95-100); ABG PCO2 39.8 MM HG (35-48); ABG PH 7.499 (7.35-7.45); ABG PO2 88.3 MM HG (80-95); ABG TCO2 31.5 MMOL/L (23-27)
[2020-09-22 05:46] LABS: Albumin 3.3 G/DL (3.4-5.0); Calcium 10.2 MG/DL (8.5-10.1); Potassium 3.8 MMOL/L (3.5-5.1); Total Protein 7.4 G/DL (6.4-8.2)
[2020-09-22] MEDS: IPRATROPIUM 500 MCG/2.5 ML NEB RESP TX SCH ×4 (07:09→20:00)
[2020-09-22] MEDS: BUDESONIDE 0.5 MG/2 ML NEB RESP TX SCH ×2 (07:09→20:00)
[2020-09-22] MEDS: LEVALBUTEROL 1.25 MG/3 ML NEB RESP TX SCH (07:09)
[2020-09-22] MEDS ORDERED: LEVALBUTEROL 1.25 MG/3 ML NEB RESP TX PRN (08:20)
[2020-09-22] MEDS: APIXABAN 5 MG TABLET PER TUBE SCH ×2 (09:16→20:31)
[2020-09-22] MEDS: DILTIAZEM 30 MG TABLET PO SCH ×3 (09:16→20:30)
[2020-09-22] MEDS: BACLOFEN 20 MG TABLET PO SCH ×4 (09:17→20:31)
[2020-09-22] MEDS: LINEZOLID 600 MG TABLET PEG SCH ×2 (09:17→20:30)
[2020-09-22] MEDS: OMEPRAZOLE ODT 20 MG TABLET PER TUBE SCH (09:17)
[2020-09-22] MEDS: DICLOFENAC 1% GEL 100 GM TUBE TOP SCH ×3 (09:17→20:30)
[2020-09-22] MEDS: ACETAMINOPHEN 325 MG TABLET PO PRN ×2 (11:54→20:31)
[2020-09-22 12:20] LABS: Basophils % 0.2 % (0.0-0.8); Hematocrit 41.8 VOL% (35.7-47.0); Hemoglobin 13.3 GM/DL (12.0-16.0); Immature Granulocytes % 0.8 %; Lymphocytes % 8.2 % (21.3-54.2); Mean Corpuscular HGB Conc 31.8 GM/DL (32-36); Mean Corpuscular Volume 96.1 FL (87-102); Mean Platelet Volume 10.1 FL (9.6-12.0); Monocytes % 9.4 % (1.7-12.7); Neutrophils % 81.4 % (38.7-73.9); Platelet Count 375 T/CUMM (130-400); Red Blood Count 4.35 MC/CUMM (3.8-5.5); Red Cell Distribution Width 17.5 % (9.3-17.3); White Blood Count 12.3 T/CUMM (4-12)
[2020-09-22] MEDS: ARFORMOTEROL 15 MCG/2 ML NEB RESP TX SCH (20:00)
[2020-09-22] MEDS: LIDOCAINE 5% PATCH TRANSDERM SCH (20:30)
[2020-09-23 04:33] LABS: Allen Test Positive; Pt O2 Delivery Device Ventilator
[2020-09-23 04:40] LABS: ABG Base Excess 6.1 MMOL/L (-2.5-2.5); ABG Oxygen Saturation 98.2 % (95-100); ABG PCO2 31.3 MM HG (35-48); ABG PH 7.562 (7.35-7.45); ABG PO2 83.5 MM HG (80-95); ABG TCO2 25.1 MMOL/L (23-27)
[2020-09-23] MEDS: POLYETHYLENE GLYCOL POWDER 17 GM PACK PO PRN (06:57)
[2020-09-23] MEDS: ARFORMOTEROL 15 MCG/2 ML NEB RESP TX SCH ×2 (06:59→20:00)
[2020-09-23] MEDS: IPRATROPIUM 500 MCG/2.5 ML NEB RESP TX SCH ×4 (06:59→20:00)
[2020-09-23] MEDS: BUDESONIDE 0.5 MG/2 ML NEB RESP TX SCH ×2 (06:59→20:00)
[2020-09-23] MEDS: LINEZOLID 600 MG TABLET PEG SCH ×2 (09:51→20:49)
[2020-09-23] MEDS: OMEPRAZOLE ODT 20 MG TABLET PER TUBE SCH (09:51)
[2020-09-23] MEDS: BACLOFEN 20 MG TABLET PO SCH ×4 (09:51→20:49)
[2020-09-23] MEDS: DILTIAZEM 30 MG TABLET PO SCH ×3 (09:52→20:50)
[2020-09-23] MEDS: APIXABAN 5 MG TABLET PER TUBE SCH ×2 (09:52→20:50)
[2020-09-23] MEDS: DICLOFENAC 1% GEL 100 GM TUBE TOP SCH ×2 (10:05→17:45)
[2020-09-23] MEDS: ACETAMINOPHEN 325 MG TABLET PO PRN (18:40)
[2020-09-23] MEDS: LIDOCAINE 5% PATCH TRANSDERM SCH (20:51)
[2020-09-23] MEDS: diphenhydrAMINE 25 MG/10 ML UDCUP PER TUBE PRN (22:49)
[2020-09-24] MEDS: DICLOFENAC 1% GEL 100 GM TUBE TOP SCH ×4 (00:08→21:09)
[2020-09-24 04:25] LABS: ABG Base Excess 7.2 MMOL/L (-2.5-2.5); ABG Oxygen Saturation 99.7 % (95-100); ABG PCO2 32.1 MM HG (35-48); ABG PH 7.569 (7.35-7.45); ABG TCO2 26.4 MMOL/L (23-27)
[2020-09-24 04:26] LABS: Allen Test Positive; Pt O2 Delivery Device Ventilator
[2020-09-24 04:58] LABS: Basophils % 0.1 % (0.0-0.8); Eosinophils % 0.2 % (0.00-10.9); Hematocrit 31.5 VOL% (35.7-47.0); Immature Granulocytes % 0.6 %; Immature Granulocytes Absolute 0.06 #; Lymphocytes # 1.9 10*3/uL (1.4-4.0); Lymphocytes % 19.8 % (21.3-54.2); Mean Corpuscular HGB Conc 31.4 GM/DL (32-36); Mean Corpuscular Volume 97.2 FL (87-102); Mean Platelet Volume 10.2 FL (9.6-12.0); Monocytes % 9.8 % (1.7-12.7); Neutrophils % 69.5 % (38.7-73.9); Platelet Count 242 T/CUMM (130-400); Red Cell Distribution Width 16.5 % (9.3-17.3); White Blood Count 9.3 T/CUMM (4-12)
[2020-09-24 05:01] LABS: Hemoglobin 9.9 GM/DL (12.0-16.0); Red Blood Count 3.24 MC/CUMM (3.8-5.5)
[2020-09-24 05:22] LABS: Albumin 2.4 G/DL (3.4-5.0); Bilirubin,Total 0.8 MG/DL (0.2-1.0); Calcium 8.7 MG/DL (8.5-10.1); Potassium 3.4 MMOL/L (3.5-5.1); Total Protein 5.5 G/DL (6.4-8.2)
[2020-09-24] MEDS: POTASSIUM CHLORIDE 20 MEQ/15 ML UDCUP PER TUBE PRN ×2 (06:36→20:45)
[2020-09-24] MEDS: HYDROmorphone 2 MG/1 ML VIAL IV PRN ×2 (07:05→14:25)
[2020-09-24] MEDS: ARFORMOTEROL 15 MCG/2 ML NEB RESP TX SCH ×2 (07:25→19:36)
[2020-09-24] MEDS: BUDESONIDE 0.5 MG/2 ML NEB RESP TX SCH ×2 (07:25→19:36)
[2020-09-24] MEDS: IPRATROPIUM 500 MCG/2.5 ML NEB RESP TX SCH ×4 (07:25→19:36)
[2020-09-24] MEDS: DILTIAZEM 30 MG TABLET PO SCH ×3 (08:40→20:46)
[2020-09-24] MEDS: POTASSIUM CHLORIDE 20 MEQ/15 ML UDCUP PER TUBE SCH ×3 (08:40→17:10)
[2020-09-24] MEDS: BACLOFEN 20 MG TABLET PO SCH ×4 (08:40→20:46)
[2020-09-24] MEDS: LINEZOLID 600 MG TABLET PEG SCH ×2 (08:40→20:46)
[2020-09-24] MEDS: APIXABAN 5 MG TABLET PER TUBE SCH ×2 (08:40→20:46)
[2020-09-24] MEDS: OMEPRAZOLE ODT 20 MG TABLET PER TUBE SCH (08:40)
[2020-09-24] MEDS ORDERED: RANITIDINE 150 MG/10 ML 30 ML BOTTLE PEG SCH (09:00)
[2020-09-24] MEDS: FAMOTIDINE 8 MG/ML 50 ML/BOTTLE PEG SCH ×2 (14:25→21:12)
[2020-09-24] MEDS: POLYETHYLENE GLYCOL POWDER 17 GM PACK PO PRN (20:45)
[2020-09-24] MEDS: LIDOCAINE 5% PATCH TRANSDERM SCH (20:45)
[2020-09-24] MEDS: diphenhydrAMINE 25 MG/10 ML UDCUP PER TUBE PRN (21:08)
[2020-09-25 04:26] LABS: Basophils % 0.1 % (0.0-0.8); Eosinophils % 0.1 % (0.00-10.9); Hematocrit 38.5 VOL% (35.7-47.0); Immature Granulocytes % 0.5 %; Immature Granulocytes Absolute 0.07 #; Lymphocytes # 2.1 10*3/uL (1.4-4.0); Lymphocytes % 15.1 % (21.3-54.2); Mean Corpuscular HGB Conc 31.7 GM/DL (32-36); Mean Corpuscular Volume 95.5 FL (87-102); Mean Platelet Volume 10.7 FL (9.6-12.0); Monocytes % 6.9 % (1.7-12.7); Neutrophils % 77.3 % (38.7-73.9); Red Cell Distribution Width 16.6 % (9.3-17.3)
[2020-09-25 04:29] LABS: Hemoglobin 12.2 GM/DL (12.0-16.0); Platelet Count 313 T/CUMM (130-400); Red Blood Count 4.03 MC/CUMM (3.8-5.5); White Blood Count 13.7 T/CUMM (4-12)
[2020-09-25 04:41] LABS: Albumin 3.4 G/DL (3.4-5.0); Bilirubin,Total 1.4 MG/DL (0.2-1.0); Calcium 9.6 MG/DL (8.5-10.1); Osmolality,Calculated 272.2 MOS/KG (273-304); Potassium 4.5 MMOL/L (3.5-5.1); Total Protein 7.2 G/DL (6.4-8.2)
[2020-09-25] MEDS: HYDROmorphone 2 MG/1 ML VIAL IV PRN ×2 (05:32→15:05)
[2020-09-25] MEDS: ARFORMOTEROL 15 MCG/2 ML NEB RESP TX SCH ×2 (07:16→19:58)
[2020-09-25] MEDS: IPRATROPIUM 500 MCG/2.5 ML NEB RESP TX SCH ×4 (07:16→19:58)
[2020-09-25] MEDS: BUDESONIDE 0.5 MG/2 ML NEB RESP TX SCH ×2 (07:16→19:58)
[2020-09-25] MEDS: OMEPRAZOLE ODT 20 MG TABLET PER TUBE SCH (08:45)
[2020-09-25] MEDS: DILTIAZEM 30 MG TABLET PO SCH ×3 (08:45→20:50)
[2020-09-25] MEDS: APIXABAN 5 MG TABLET PER TUBE SCH ×2 (08:45→20:50)
[2020-09-25] MEDS: FAMOTIDINE 8 MG/ML 50 ML/BOTTLE PEG SCH ×2 (08:45→20:51)
[2020-09-25] MEDS: BACLOFEN 20 MG TABLET PO SCH ×3 (08:45→17:30)
[2020-09-25] MEDS: DICLOFENAC 1% GEL 100 GM TUBE TOP SCH ×3 (08:50→22:35)
[2020-09-25] MEDS: PHENYLEPHRINE DRIP 40 MG/250 ML PREMIX IV PRN (18:15)
[2020-09-25] MEDS: LIDOCAINE 5% PATCH TRANSDERM SCH (20:50)
[2020-09-25] MEDS: buPROPion 100 MG TABLET PER TUBE SCH (20:50)
[2020-09-26 03:12] LABS: ABG Base Excess 2.7 MMOL/L (-2.5-2.5); ABG HCO3 26.1 MMOL/L (20-26); ABG Oxygen Saturation 97.6 % (95-100); ABG PCO2 35.8 MM HG (35-48); ABG PO2 100.3 MM HG (80-95); ABG TCO2 27.2 MMOL/L (23-27)
[2020-09-26 04:26] LABS: Basophils % 0.1 % (0.0-0.8); Hematocrit 37.5 VOL% (35.7-47.0); Hemoglobin 11.4 GM/DL (12.0-16.0); Immature Granulocytes % 0.7 %; Lymphocytes # 1.6 10*3/uL (1.4-4.0); Lymphocytes % 10.9 % (21.3-54.2); Mean Corpuscular HGB Conc 30.4 GM/DL (32-36); Mean Platelet Volume 10.7 FL (9.6-12.0); Monocytes % 7.1 % (1.7-12.7); Neutrophils % 81.2 % (38.7-73.9); Platelet Count 289 T/CUMM (130-400); Red Blood Count 3.75 MC/CUMM (3.8-5.5); Red Cell Distribution Width 17.1 % (9.3-17.3); White Blood Count 14.3 T/CUMM (4-12)
[2020-09-26 04:47] LABS: Osmolality,Calculated 283.7 MOS/KG (273-304); Potassium 4.1 MMOL/L (3.5-5.1)
[2020-09-26] MEDS: HYDROmorphone 2 MG/1 ML VIAL IV PRN ×2 (06:04→14:06)
[2020-09-26] MEDS: BACLOFEN 20 MG TABLET PO SCH ×5 (06:31→21:39)
[2020-09-26] MEDS: ARFORMOTEROL 15 MCG/2 ML NEB RESP TX SCH ×2 (06:55→19:20)
[2020-09-26] MEDS: IPRATROPIUM 500 MCG/2.5 ML NEB RESP TX SCH ×4 (06:55→19:20)
[2020-09-26] MEDS: BUDESONIDE 0.5 MG/2 ML NEB RESP TX SCH ×2 (06:55→19:20)
[2020-09-26] MEDS: DILTIAZEM 30 MG TABLET PO SCH ×3 (09:39→21:40)
[2020-09-26] MEDS: buPROPion 100 MG TABLET PER TUBE SCH ×2 (09:39→21:42)
[2020-09-26] MEDS: APIXABAN 5 MG TABLET PER TUBE SCH ×2 (09:39→21:40)
[2020-09-26] MEDS: FAMOTIDINE 8 MG/ML 50 ML/BOTTLE PEG SCH ×2 (09:39→21:39)
[2020-09-26] MEDS: OMEPRAZOLE ODT 20 MG TABLET PER TUBE SCH (10:01)
[2020-09-26] MEDS: DICLOFENAC 1% GEL 100 GM TUBE TOP SCH ×3 (10:01→21:38)
[2020-09-26] MEDS: PHENYLEPHRINE DRIP 40 MG/250 ML PREMIX IV PRN (18:35)
[2020-09-26] MEDS ORDERED: DIAZEPAM 10 MG/2 ML SYRINGE IV SCH (21:00)
[2020-09-26] MEDS: DIAZEPAM 5 MG TABLET PO SCH (21:39)
[2020-09-26] MEDS: diphenhydrAMINE 25 MG/10 ML UDCUP PER TUBE PRN (21:39)
[2020-09-26] MEDS: LIDOCAINE 5% PATCH TRANSDERM SCH (21:41)
[2020-09-27] MEDS: IPRATROPIUM 500 MCG/2.5 ML NEB RESP TX SCH ×4 (07:14→19:15)
[2020-09-27] MEDS: BUDESONIDE 0.5 MG/2 ML NEB RESP TX SCH ×2 (07:14→19:15)
[2020-09-27] MEDS: ARFORMOTEROL 15 MCG/2 ML NEB RESP TX SCH ×2 (07:14→19:15)
[2020-09-27 07:25] LABS: Basophils % 0.2 % (0.0-0.8); Eosinophils % 0.1 % (0.00-10.9); Hematocrit 36.3 VOL% (35.7-47.0); Hemoglobin 11.2 GM/DL (12.0-16.0); Immature Granulocytes % 0.3 %; Immature Granulocytes Absolute 0.03 #; Lymphocytes # 1.8 10*3/uL (1.4-4.0); Lymphocytes % 18.7 % (21.3-54.2); Mean Corpuscular HGB Conc 30.9 GM/DL (32-36); Mean Corpuscular Volume 99.7 FL (87-102); Mean Platelet Volume 11.2 FL (9.6-12.0); Monocytes % 9.9 % (1.7-12.7); Neutrophils % 70.8 % (38.7-73.9); Platelet Count 195 T/CUMM (130-400); Red Blood Count 3.64 MC/CUMM (3.8-5.5); Red Cell Distribution Width 16.5 % (9.3-17.3); White Blood Count 9.4 T/CUMM (4-12)
[2020-09-27 07:38] LABS: Calcium 9.1 MG/DL (8.5-10.1); Osmolality,Calculated 281.8 MOS/KG (273-304); Potassium 4.4 MMOL/L (3.5-5.1)
[2020-09-27] MEDS: DILTIAZEM 30 MG TABLET PO SCH ×3 (09:19→20:40)
[2020-09-27] MEDS: APIXABAN 5 MG TABLET PER TUBE SCH ×2 (09:20→20:41)
[2020-09-27] MEDS: buPROPion 100 MG TABLET PER TUBE SCH ×2 (09:20→20:45)
[2020-09-27] MEDS: BACLOFEN 20 MG TABLET PO SCH ×4 (09:21→20:41)
[2020-09-27] MEDS: OMEPRAZOLE ODT 20 MG TABLET PER TUBE SCH (09:21)
[2020-09-27] MEDS: FAMOTIDINE 8 MG/ML 50 ML/BOTTLE PEG SCH ×2 (09:22→21:26)
[2020-09-27] MEDS: DICLOFENAC 1% GEL 100 GM TUBE TOP SCH ×3 (09:22→20:45)
[2020-09-27 10:16] LABS: Basophils % 0.2 % (0.0-0.8); Eosinophils % 0.2 % (0.00-10.9); Hematocrit 29.3 VOL% (35.7-47.0); Hemoglobin 9.3 GM/DL (12.0-16.0); Immature Granulocytes % 0.3 %; Immature Granulocytes Absolute 0.02 #; Lymphocytes # 1.2 10*3/uL (1.4-4.0); Lymphocytes % 19.5 % (21.3-54.2); Mean Corpuscular HGB Conc 31.7 GM/DL (32-36); Monocytes % 8.4 % (1.7-12.7); Neutrophils % 71.4 % (38.7-73.9); Platelet Count 174 T/CUMM (130-400); Red Blood Count 2.93 MC/CUMM (3.8-5.5); Red Cell Distribution Width 16.3 % (9.3-17.3); White Blood Count 6.2 T/CUMM (4-12)
[2020-09-27] MEDS: LIDOCAINE 5% PATCH TRANSDERM SCH (20:41)
[2020-09-27] MEDS: DIAZEPAM 5 MG TABLET PO SCH (20:45)
[2020-09-28] MEDS: ARFORMOTEROL 15 MCG/2 ML NEB RESP TX SCH ×2 (07:31→19:34)
[2020-09-28] MEDS: BUDESONIDE 0.5 MG/2 ML NEB RESP TX SCH ×2 (07:31→19:34)
[2020-09-28] MEDS: IPRATROPIUM 500 MCG/2.5 ML NEB RESP TX SCH ×4 (07:31→19:34)
[2020-09-28] MEDS: buPROPion 100 MG TABLET PER TUBE SCH ×2 (09:27→22:19)
[2020-09-28] MEDS: DILTIAZEM 30 MG TABLET PO SCH ×2 (09:28→15:33)
[2020-09-28] MEDS: APIXABAN 5 MG TABLET PER TUBE SCH ×2 (09:28→22:19)
[2020-09-28] MEDS: BACLOFEN 20 MG TABLET PO SCH ×4 (09:28→22:22)
[2020-09-28] MEDS: OMEPRAZOLE ODT 20 MG TABLET PER TUBE SCH (09:28)
[2020-09-28] MEDS: SULFAMETHOX/TRIMETHOPRIM 200-40 MG/5 ML -20 ML UDCUP PER TUBE SCH ×2 (09:29→22:00)
[2020-09-28] MEDS: DICLOFENAC 1% GEL 100 GM TUBE TOP SCH ×3 (09:29→22:22)
[2020-09-28] MEDS: FAMOTIDINE 8 MG/ML 50 ML/BOTTLE PEG SCH ×2 (09:30→22:20)
[2020-09-28] MEDS: DIAZEPAM 5 MG TABLET PO SCH (22:19)
[2020-09-28] MEDS: LIDOCAINE 5% PATCH TRANSDERM SCH (22:21)
[2020-09-29] MEDS: DILTIAZEM 30 MG TABLET PO SCH ×4 (04:32→21:56)
[2020-09-29 06:01] LABS: Osmolality,Calculated 283.5 MOS/KG (273-304); Potassium 3.7 MMOL/L (3.5-5.1)
[2020-09-29] MEDS: BUDESONIDE 0.5 MG/2 ML NEB RESP TX SCH ×2 (06:49→18:02)
[2020-09-29] MEDS: IPRATROPIUM 500 MCG/2.5 ML NEB RESP TX SCH ×4 (06:49→18:02)
[2020-09-29] MEDS: ARFORMOTEROL 15 MCG/2 ML NEB RESP TX SCH ×2 (06:49→18:02)
[2020-09-29] MEDS: OMEPRAZOLE ODT 20 MG TABLET PER TUBE SCH (09:00)
[2020-09-29] MEDS: buPROPion 100 MG TABLET PER TUBE SCH ×2 (09:00→21:56)
[2020-09-29] MEDS: SULFAMETHOX/TRIMETHOPRIM 200-40 MG/5 ML -20 ML UDCUP PER TUBE SCH ×2 (09:00→21:57)
[2020-09-29] MEDS: APIXABAN 5 MG TABLET PER TUBE SCH ×2 (09:00→21:57)
[2020-09-29] MEDS: FAMOTIDINE 8 MG/ML 50 ML/BOTTLE PEG SCH ×2 (09:00→21:57)
[2020-09-29] MEDS: BACLOFEN 20 MG TABLET PO SCH ×4 (09:00→21:57)
[2020-09-29] MEDS: DICLOFENAC 1% GEL 100 GM TUBE TOP SCH ×3 (09:15→21:57)
[2020-09-29] MEDS: DIAZEPAM 5 MG TABLET PO SCH (21:56)
[2020-09-29] MEDS: LIDOCAINE 5% PATCH TRANSDERM SCH (21:57)
[2020-09-30] MEDS: METOPROLOL TARTRATE 5 MG/5 ML VIAL IV PRN (03:20)
[2020-09-30] MEDS: ACETAMINOPHEN 325 MG TABLET PO PRN ×3 (03:24→20:25)
[2020-09-30] MEDS: ARFORMOTEROL 15 MCG/2 ML NEB RESP TX SCH ×2 (07:09→19:57)
[2020-09-30] MEDS: BUDESONIDE 0.5 MG/2 ML NEB RESP TX SCH ×2 (07:09→19:57)
[2020-09-30] MEDS: IPRATROPIUM 500 MCG/2.5 ML NEB RESP TX SCH ×4 (07:09→19:57)
[2020-09-30] MEDS: buPROPion 100 MG TABLET PER TUBE SCH ×2 (09:25→20:25)
[2020-09-30] MEDS: SULFAMETHOX/TRIMETHOPRIM 200-40 MG/5 ML -20 ML UDCUP PER TUBE SCH ×2 (09:25→20:28)
[2020-09-30] MEDS: APIXABAN 5 MG TABLET PER TUBE SCH ×2 (09:25→20:26)
[2020-09-30] MEDS: OMEPRAZOLE ODT 20 MG TABLET PER TUBE SCH (09:25)
[2020-09-30] MEDS: FAMOTIDINE 8 MG/ML 50 ML/BOTTLE PEG SCH ×2 (09:25→20:27)
[2020-09-30] MEDS: DILTIAZEM 30 MG TABLET PO SCH ×3 (09:25→20:25)
[2020-09-30] MEDS: BACLOFEN 20 MG TABLET PO SCH ×4 (09:25→20:25)
[2020-09-30] MEDS: DICLOFENAC 1% GEL 100 GM TUBE TOP SCH ×3 (09:30→20:27)
[2020-09-30] MEDS: LIDOCAINE 5% PATCH TRANSDERM SCH (20:24)
[2020-09-30] MEDS: DIAZEPAM 5 MG TABLET PO SCH (20:25)
[2020-10-01 05:34] LABS: Basophils % 0.3 % (0.0-0.8); Eosinophils % 0.5 % (0.00-10.9); Hematocrit 28.1 VOL% (35.7-47.0); Hemoglobin 8.9 GM/DL (12.0-16.0); Immature Granulocytes % 0.3 %; Immature Granulocytes Absolute 0.01 #; Lymphocytes # 0.8 10*3/uL (1.4-4.0); Lymphocytes % 21.4 % (21.3-54.2); Mean Corpuscular HGB Conc 31.7 GM/DL (32-36); Mean Corpuscular Volume 99.3 FL (87-102); Monocytes % 16.2 % (1.7-12.7); Neutrophils % 61.3 % (38.7-73.9); Platelet Count 152 T/CUMM (130-400); Red Blood Count 2.83 MC/CUMM (3.8-5.5); Red Cell Distribution Width 16.3 % (9.3-17.3); White Blood Count 3.7 T/CUMM (4-12)
[2020-10-01 05:59] LABS: Calcium 8.7 MG/DL (8.5-10.1); Hypochromasia 1+; Lymphocytes 19 % (20-55); Osmolality,Calculated 281.5 MOS/KG (273-304); Potassium 3.8 MMOL/L (3.5-5.1); Segmented Neutrophils 66 % (50-85); Total Cells Counted 100
[2020-10-01 06:00] LABS: Microcytosis 1+; Platelet Estimate Adequate; Polychromasia Slight
[2020-10-01] MEDS: ARFORMOTEROL 15 MCG/2 ML NEB RESP TX SCH ×2 (06:58→19:21)
[2020-10-01] MEDS: BUDESONIDE 0.5 MG/2 ML NEB RESP TX SCH ×2 (06:58→19:21)
[2020-10-01] MEDS: IPRATROPIUM 500 MCG/2.5 ML NEB RESP TX SCH ×4 (06:58→19:21)
[2020-10-01] MEDS: BACLOFEN 20 MG TABLET PO SCH ×4 (08:33→21:53)
[2020-10-01] MEDS: DICLOFENAC 1% GEL 100 GM TUBE TOP SCH ×3 (08:33→21:56)
[2020-10-01] MEDS: OMEPRAZOLE ODT 20 MG TABLET PER TUBE SCH (08:33)
[2020-10-01] MEDS: DILTIAZEM 30 MG TABLET PO SCH ×3 (08:33→21:54)
[2020-10-01] MEDS: buPROPion 100 MG TABLET PER TUBE SCH ×2 (08:33→21:53)
[2020-10-01] MEDS: SULFAMETHOX/TRIMETHOPRIM 200-40 MG/5 ML -20 ML UDCUP PER TUBE SCH ×2 (08:33→21:53)
[2020-10-01] MEDS: APIXABAN 5 MG TABLET PER TUBE SCH ×2 (08:33→21:54)
[2020-10-01] MEDS: FAMOTIDINE 8 MG/ML 50 ML/BOTTLE PEG SCH ×2 (08:33→21:56)
[2020-10-01] MEDS: POTASSIUM CHLORIDE 20 MEQ/15 ML UDCUP PER TUBE PRN (08:35)
[2020-10-01] MEDS: DIAZEPAM 5 MG TABLET PO SCH (21:54)
[2020-10-01] MEDS: LIDOCAINE 5% PATCH TRANSDERM SCH (21:55)
[2020-10-02 06:41] LABS: Basophils % 0.3 % (0.0-0.8); Eosinophils % 0.3 % (0.00-10.9); Hematocrit 31.9 VOL% (35.7-47.0); Hemoglobin 9.9 GM/DL (12.0-16.0); Immature Granulocytes % 0.3 %; Immature Granulocytes Absolute 0.01 #; Lymphocytes # 0.9 10*3/uL (1.4-4.0); Lymphocytes % 23.1 % (21.3-54.2); Mean Corpuscular Volume 99.4 FL (87-102); Monocytes % 14.9 % (1.7-12.7); Neutrophils % 61.1 % (38.7-73.9); Platelet Count 163 T/CUMM (130-400); Red Blood Count 3.21 MC/CUMM (3.8-5.5); Red Cell Distribution Width 16.1 % (9.3-17.3); White Blood Count 3.8 T/CUMM (4-12)
[2020-10-02] MEDS: ARFORMOTEROL 15 MCG/2 ML NEB RESP TX SCH ×2 (07:06→19:13)
[2020-10-02] MEDS: IPRATROPIUM 500 MCG/2.5 ML NEB RESP TX SCH ×4 (07:06→19:13)
[2020-10-02] MEDS: BUDESONIDE 0.5 MG/2 ML NEB RESP TX SCH ×2 (07:06→19:13)
[2020-10-02 07:09] LABS: Osmolality,Calculated 276.8 MOS/KG (273-304); Potassium 4.4 MMOL/L (3.5-5.1)
[2020-10-02] MEDS: buPROPion 100 MG TABLET PER TUBE SCH ×2 (08:43→20:29)
[2020-10-02] MEDS: DILTIAZEM 30 MG TABLET PO SCH ×3 (08:43→20:29)
[2020-10-02] MEDS: APIXABAN 5 MG TABLET PER TUBE SCH ×2 (08:44→20:30)
[2020-10-02] MEDS: SULFAMETHOX/TRIMETHOPRIM 200-40 MG/5 ML -20 ML UDCUP PER TUBE SCH ×2 (08:45→20:29)
[2020-10-02] MEDS: OMEPRAZOLE ODT 20 MG TABLET PER TUBE SCH (08:45)
[2020-10-02] MEDS: BACLOFEN 20 MG TABLET PO SCH ×4 (08:45→20:30)
[2020-10-02] MEDS: DICLOFENAC 1% GEL 100 GM TUBE TOP SCH ×3 (08:47→20:32)
[2020-10-02] MEDS: FAMOTIDINE 8 MG/ML 50 ML/BOTTLE PEG SCH ×2 (08:47→20:31)
[2020-10-02 11:03] LABS: ABG Base Excess 3.1 MMOL/L (-2.5-2.5); ABG HCO3 27.2 MMOL/L (20-26); ABG Oxygen Saturation 99.8 % (95-100); ABG PCO2 45.2 MM HG (35-48); ABG PH 7.404 (7.35-7.45)
[2020-10-02 11:04] LABS: Allen Test Positive; Pt O2 Delivery Device Ventilator
[2020-10-02] MEDS: NYSTATIN 500,000 UNIT/5 ML UDCUP SWISH/SWAL SCH ×3 (12:27→20:31)
[2020-10-02] MEDS: diphenhydrAMINE 25 MG/10 ML UDCUP PER TUBE PRN (12:27)
[2020-10-02] MEDS: DIAZEPAM 5 MG TABLET PO SCH (20:30)
[2020-10-02] MEDS: LIDOCAINE 5% PATCH TRANSDERM SCH (20:31)
[2020-10-03 05:29] LABS: ABG Base Excess 4.4 MMOL/L (-2.5-2.5); ABG HCO3 27.5 MMOL/L (20-26); ABG Oxygen Saturation 98.3 % (95-100); ABG PCO2 35.2 MM HG (35-48); ABG PH 7.511 (7.35-7.45); ABG PO2 104.1 MM HG (80-95); ABG TCO2 28.6 MMOL/L (23-27)
[2020-10-03 06:38] LABS: Albumin 2.9 G/DL (3.4-5.0); Bilirubin,Total 0.9 MG/DL (0.2-1.0); Calcium 9.1 MG/DL (8.5-10.1); Osmolality,Calculated 278.7 MOS/KG (273-304); Potassium 4.3 MMOL/L (3.5-5.1); Total Protein 6.1 G/DL (6.4-8.2)
[2020-10-03] MEDS: ARFORMOTEROL 15 MCG/2 ML NEB RESP TX SCH ×2 (07:01→19:22)
[2020-10-03] MEDS: IPRATROPIUM 500 MCG/2.5 ML NEB RESP TX SCH ×4 (07:01→19:22)
[2020-10-03] MEDS: BUDESONIDE 0.5 MG/2 ML NEB RESP TX SCH ×2 (07:01→19:22)
[2020-10-03] MEDS: SULFAMETHOX/TRIMETHOPRIM 200-40 MG/5 ML -20 ML UDCUP PER TUBE SCH ×2 (08:52→20:13)
[2020-10-03] MEDS: DILTIAZEM 30 MG TABLET PO SCH ×3 (08:52→20:14)
[2020-10-03] MEDS: NYSTATIN 500,000 UNIT/5 ML UDCUP SWISH/SWAL SCH ×4 (08:53→20:12)
[2020-10-03] MEDS: FAMOTIDINE 8 MG/ML 50 ML/BOTTLE PEG SCH ×2 (08:53→20:12)
[2020-10-03] MEDS: buPROPion 100 MG TABLET PER TUBE SCH ×2 (08:53→20:13)
[2020-10-03] MEDS: BACLOFEN 20 MG TABLET PO SCH ×4 (08:53→20:15)
[2020-10-03] MEDS: APIXABAN 5 MG TABLET PER TUBE SCH ×2 (08:53→20:13)
[2020-10-03] MEDS: DICLOFENAC 1% GEL 100 GM TUBE TOP SCH ×3 (08:53→20:11)
[2020-10-03] MEDS: OMEPRAZOLE ODT 20 MG TABLET PER TUBE SCH (08:53)
[2020-10-03] MEDS: diphenhydrAMINE 25 MG/10 ML UDCUP PER TUBE PRN (08:54)
[2020-10-03] MEDS: clonazePAM 0.5 MG TABLET PO PRN (15:09)
[2020-10-03] MEDS: LIDOCAINE 5% PATCH TRANSDERM SCH (20:15)
[2020-10-04 03:50] LABS: Eosinophils % 0.3 % (0.00-10.9); Hematocrit 31.4 VOL% (35.7-47.0); Hemoglobin 9.6 GM/DL (12.0-16.0); Immature Granulocytes % 0.3 %; Immature Granulocytes Absolute 0.01 #; Lymphocytes % 27.8 % (21.3-54.2); Mean Corpuscular HGB Conc 30.6 GM/DL (32-36); Mean Corpuscular Volume 100.6 FL (87-102); Mean Platelet Volume 11.5 FL (9.6-12.0); Monocytes % 15.5 % (1.7-12.7); Neutrophils % 56.1 % (38.7-73.9); Platelet Count 178 T/CUMM (130-400); Red Blood Count 3.12 MC/CUMM (3.8-5.5); Red Cell Distribution Width 15.9 % (9.3-17.3); White Blood Count 3.7 T/CUMM (4-12)
[2020-10-04] MEDS: clonazePAM 0.5 MG TABLET PO PRN ×3 (03:51→21:10)
[2020-10-04 04:10] LABS: Albumin 2.9 G/DL (3.4-5.0); Osmolality,Calculated 280.5 MOS/KG (273-304); Potassium 4.3 MMOL/L (3.5-5.1); Total Protein 5.9 G/DL (6.4-8.2)
[2020-10-04 04:58] LABS: ABG Base Excess 5.3 MMOL/L (-2.5-2.5); ABG HCO3 29.2 MMOL/L (20-26); ABG Oxygen Saturation 99.8 % (95-100); ABG PCO2 45.4 MM HG (35-48); ABG PH 7.434 (7.35-7.45); ABG TCO2 26.3 MMOL/L (23-27); Allen Test Positive; Pt O2 Delivery Device Ventilator
[2020-10-04] MEDS: IPRATROPIUM 500 MCG/2.5 ML NEB RESP TX SCH ×4 (06:51→18:08)
[2020-10-04] MEDS: BUDESONIDE 0.5 MG/2 ML NEB RESP TX SCH ×2 (06:51→18:08)
[2020-10-04] MEDS: ARFORMOTEROL 15 MCG/2 ML NEB RESP TX SCH ×2 (06:51→18:08)
[2020-10-04] MEDS: DILTIAZEM 30 MG TABLET PO SCH ×3 (08:09→20:59)
[2020-10-04] MEDS: FAMOTIDINE 8 MG/ML 50 ML/BOTTLE PEG SCH ×2 (08:09→20:12)
[2020-10-04] MEDS: DICLOFENAC 1% GEL 100 GM TUBE TOP SCH ×3 (08:09→20:32)
[2020-10-04] MEDS: APIXABAN 5 MG TABLET PER TUBE SCH ×2 (08:10→20:09)
[2020-10-04] MEDS: buPROPion 100 MG TABLET PER TUBE SCH ×2 (08:10→20:10)
[2020-10-04] MEDS: BACLOFEN 20 MG TABLET PO SCH ×4 (08:11→20:11)
[2020-10-04] MEDS: SULFAMETHOX/TRIMETHOPRIM 200-40 MG/5 ML -20 ML UDCUP PER TUBE SCH ×2 (08:11→20:08)
[2020-10-04] MEDS: NYSTATIN 500,000 UNIT/5 ML UDCUP SWISH/SWAL SCH ×4 (08:17→20:10)
[2020-10-04] MEDS: LIDOCAINE 5% PATCH TRANSDERM SCH (20:15)
[2020-10-05 03:54] LABS: ABG Base Excess 4.8 MMOL/L (-2.5-2.5); ABG HCO3 28.7 MMOL/L (20-26); ABG Oxygen Saturation 99.9 % (95-100); ABG PCO2 40.5 MM HG (35-48); ABG PH 7.462 (7.35-7.45); ABG TCO2 26.3 MMOL/L (23-27)
[2020-10-05] MEDS: BUDESONIDE 0.5 MG/2 ML NEB RESP TX SCH ×2 (07:32→20:10)
[2020-10-05] MEDS: IPRATROPIUM 500 MCG/2.5 ML NEB RESP TX SCH ×4 (07:32→20:10)
[2020-10-05] MEDS: ARFORMOTEROL 15 MCG/2 ML NEB RESP TX SCH ×2 (07:32→20:10)
[2020-10-05] MEDS: APIXABAN 5 MG TABLET PER TUBE SCH ×2 (09:01→21:04)
[2020-10-05] MEDS: clonazePAM 0.5 MG TABLET PO PRN ×2 (09:01→17:02)
[2020-10-05] MEDS: SULFAMETHOX/TRIMETHOPRIM 200-40 MG/5 ML -20 ML UDCUP PER TUBE SCH (09:01)
[2020-10-05] MEDS: buPROPion 100 MG TABLET PER TUBE SCH ×2 (09:01→21:03)
[2020-10-05] MEDS: BACLOFEN 20 MG TABLET PO SCH ×4 (09:01→21:04)
[2020-10-05] MEDS: NYSTATIN 500,000 UNIT/5 ML UDCUP SWISH/SWAL SCH ×4 (09:01→21:04)
[2020-10-05] MEDS: FAMOTIDINE 8 MG/ML 50 ML/BOTTLE PEG SCH ×2 (09:02→21:05)
[2020-10-05] MEDS: DILTIAZEM 30 MG TABLET PO SCH ×3 (09:02→21:04)
[2020-10-05] MEDS: DICLOFENAC 1% GEL 100 GM TUBE TOP SCH ×3 (09:02→21:05)
[2020-10-05] MEDS: LIDOCAINE 5% PATCH TRANSDERM SCH (21:34)
[2020-10-06 04:25] LABS: ABG Base Excess 5.1 MMOL/L (-2.5-2.5); ABG Oxygen Saturation 98.7 % (95-100); ABG PCO2 45.8 MM HG (35-48); ABG PH 7.434 (7.35-7.45); ABG PO2 141.7 MM HG (80-95); ABG TCO2 31.4 MMOL/L (23-27)
[2020-10-06] MEDS: IPRATROPIUM 500 MCG/2.5 ML NEB RESP TX SCH ×4 (07:01→19:18)
[2020-10-06] MEDS: ARFORMOTEROL 15 MCG/2 ML NEB RESP TX SCH ×2 (07:01→19:18)
[2020-10-06] MEDS: BUDESONIDE 0.5 MG/2 ML NEB RESP TX SCH ×2 (07:01→19:18)
[2020-10-06] MEDS: buPROPion 100 MG TABLET PER TUBE SCH ×2 (08:40→21:11)
[2020-10-06] MEDS: APIXABAN 5 MG TABLET PER TUBE SCH ×2 (08:40→21:10)
[2020-10-06] MEDS: DILTIAZEM 30 MG TABLET PO SCH ×3 (08:40→21:11)
[2020-10-06] MEDS: BACLOFEN 20 MG TABLET PO SCH ×4 (08:40→21:10)
[2020-10-06] MEDS: NYSTATIN 500,000 UNIT/5 ML UDCUP SWISH/SWAL SCH ×4 (08:41→21:10)
[2020-10-06] MEDS: FAMOTIDINE 8 MG/ML 50 ML/BOTTLE PEG SCH ×2 (08:42→21:12)
[2020-10-06] MEDS: DICLOFENAC 1% GEL 100 GM TUBE TOP SCH ×3 (08:42→21:12)
[2020-10-06] MEDS: clonazePAM 0.5 MG TABLET PO PRN ×2 (14:31→21:11)
[2020-10-06] MEDS: LIDOCAINE 5% PATCH TRANSDERM SCH (21:11)
[2020-10-07] MEDS: BUDESONIDE 0.5 MG/2 ML NEB RESP TX SCH ×2 (07:17→19:34)
[2020-10-07] MEDS: ARFORMOTEROL 15 MCG/2 ML NEB RESP TX SCH ×2 (07:17→19:34)
[2020-10-07] MEDS: IPRATROPIUM 500 MCG/2.5 ML NEB RESP TX SCH ×4 (07:17→19:34)
[2020-10-07] MEDS: clonazePAM 0.5 MG TABLET PO PRN ×2 (07:45→13:37)
[2020-10-07] MEDS: BACLOFEN 20 MG TABLET PO SCH ×4 (08:00→22:49)
[2020-10-07] MEDS: DILTIAZEM 30 MG TABLET PO SCH ×3 (08:00→22:49)
[2020-10-07] MEDS: DICLOFENAC 1% GEL 100 GM TUBE TOP SCH ×3 (08:00→22:50)
[2020-10-07] MEDS: APIXABAN 5 MG TABLET PER TUBE SCH ×2 (08:00→22:49)
[2020-10-07] MEDS: NYSTATIN 500,000 UNIT/5 ML UDCUP SWISH/SWAL SCH ×4 (08:00→22:48)
[2020-10-07] MEDS: FAMOTIDINE 8 MG/ML 50 ML/BOTTLE PEG SCH ×2 (08:00→22:49)
[2020-10-07] MEDS: buPROPion 100 MG TABLET PER TUBE SCH ×2 (08:00→22:48)
[2020-10-07] MEDS: LIDOCAINE 5% PATCH TRANSDERM SCH (22:50)
[2020-10-08] MEDS: BUDESONIDE 0.5 MG/2 ML NEB RESP TX SCH ×2 (06:54→18:01)
[2020-10-08] MEDS: IPRATROPIUM 500 MCG/2.5 ML NEB RESP TX SCH ×4 (06:54→18:01)
[2020-10-08] MEDS: ARFORMOTEROL 15 MCG/2 ML NEB RESP TX SCH ×2 (06:54→18:01)
[2020-10-08] MEDS: buPROPion 100 MG TABLET PER TUBE SCH ×2 (08:37→20:58)
[2020-10-08] MEDS: APIXABAN 5 MG TABLET PER TUBE SCH ×2 (08:38→21:00)
[2020-10-08] MEDS: BACLOFEN 20 MG TABLET PO SCH ×4 (08:38→20:58)
[2020-10-08] MEDS: NYSTATIN 500,000 UNIT/5 ML UDCUP SWISH/SWAL SCH ×4 (08:38→20:59)
[2020-10-08] MEDS: DILTIAZEM 30 MG TABLET PO SCH ×3 (08:38→20:59)
[2020-10-08] MEDS: FAMOTIDINE 8 MG/ML 50 ML/BOTTLE PEG SCH ×2 (08:39→20:58)
[2020-10-08] MEDS: DICLOFENAC 1% GEL 100 GM TUBE TOP SCH ×3 (08:39→20:58)
[2020-10-08] MEDS: clonazePAM 0.5 MG TABLET PO PRN (16:17)
[2020-10-08] MEDS: LIDOCAINE 5% PATCH TRANSDERM SCH (20:58)
[2020-10-09] MEDS: BUDESONIDE 0.5 MG/2 ML NEB RESP TX SCH ×2 (06:50→18:27)
[2020-10-09] MEDS: IPRATROPIUM 500 MCG/2.5 ML NEB RESP TX SCH ×4 (06:50→18:27)
[2020-10-09] MEDS: ARFORMOTEROL 15 MCG/2 ML NEB RESP TX SCH ×2 (06:50→18:27)
[2020-10-09] MEDS: BACLOFEN 20 MG TABLET PO SCH ×4 (08:00→20:22)
[2020-10-09] MEDS: buPROPion 100 MG TABLET PER TUBE SCH ×2 (08:00→20:22)
[2020-10-09] MEDS: APIXABAN 5 MG TABLET PER TUBE SCH ×2 (08:00→20:23)
[2020-10-09] MEDS: DILTIAZEM 30 MG TABLET PO SCH ×3 (08:00→20:24)
[2020-10-09] MEDS: FAMOTIDINE 8 MG/ML 50 ML/BOTTLE PEG SCH ×2 (08:00→20:23)
[2020-10-09] MEDS: NYSTATIN 500,000 UNIT/5 ML UDCUP SWISH/SWAL SCH ×4 (08:01→20:23)
[2020-10-09] MEDS: DICLOFENAC 1% GEL 100 GM TUBE TOP SCH ×3 (08:01→20:24)
[2020-10-09] MEDS: clonazePAM 0.5 MG TABLET PO PRN (14:11)
[2020-10-09] MEDS: LIDOCAINE 5% PATCH TRANSDERM SCH (20:20)
[2020-10-10 04:27] LABS: Basophils % 0.2 % (0.0-0.8); Eosinophils % 0.2 % (0.00-10.9); Hematocrit 38.6 VOL% (35.7-47.0); Hemoglobin 11.7 GM/DL (12.0-16.0); Immature Granulocytes % 0.3 %; Immature Granulocytes Absolute 0.02 #; Lymphocytes % 15.4 % (21.3-54.2); Mean Corpuscular HGB Conc 30.3 GM/DL (32-36); Mean Platelet Volume 12.2 FL (9.6-12.0); Monocytes % 12.5 % (1.7-12.7); Neutrophils % 71.4 % (38.7-73.9); Platelet Count 175 T/CUMM (130-400); Red Blood Count 3.86 MC/CUMM (3.8-5.5); Red Cell Distribution Width 14.5 % (9.3-17.3); White Blood Count 6.6 T/CUMM (4-12)
[2020-10-10 04:47] LABS: Blood Urea Nitrogen 25 MG/DL (7-18); Calcium 9.7 MG/DL (8.5-10.1); Carbon Dioxide 26 MMOL/L (21-32); Estimated Glom Filtration Rate 213 ML/MIN; Glucose 117 MG/DL (74-106); Potassium 4.6 MMOL/L (3.5-5.1); Sodium 136 MMOL/L (136-145)
[2020-10-10] MEDS: ARFORMOTEROL 15 MCG/2 ML NEB RESP TX SCH ×2 (06:50→19:15)
[2020-10-10] MEDS: IPRATROPIUM 500 MCG/2.5 ML NEB RESP TX SCH ×4 (06:50→19:15)
[2020-10-10] MEDS: BUDESONIDE 0.5 MG/2 ML NEB RESP TX SCH ×2 (06:50→19:15)
[2020-10-10] MEDS: clonazePAM 0.5 MG TABLET PO PRN ×3 (09:05→20:52)
[2020-10-10] MEDS: buPROPion 100 MG TABLET PER TUBE SCH ×2 (09:05→20:52)
[2020-10-10] MEDS: DILTIAZEM 30 MG TABLET PO SCH ×3 (09:06→20:52)
[2020-10-10] MEDS: BACLOFEN 20 MG TABLET PO SCH ×4 (09:06→20:51)
[2020-10-10] MEDS: APIXABAN 5 MG TABLET PER TUBE SCH ×2 (09:06→20:51)
[2020-10-10] MEDS: FAMOTIDINE 8 MG/ML 50 ML/BOTTLE PEG SCH ×2 (09:07→20:54)
[2020-10-10] MEDS: NYSTATIN 500,000 UNIT/5 ML UDCUP SWISH/SWAL SCH ×4 (09:07→20:53)
[2020-10-10] MEDS: DICLOFENAC 1% GEL 100 GM TUBE TOP SCH ×3 (09:07→20:54)
[2020-10-10] MEDS: LIDOCAINE 5% PATCH TRANSDERM SCH (20:53)
[2020-10-11] MEDS: clonazePAM 0.5 MG TABLET PO PRN (04:20)
[2020-10-11] MEDS: BUDESONIDE 0.5 MG/2 ML NEB RESP TX SCH ×2 (06:44→19:41)
[2020-10-11] MEDS: ARFORMOTEROL 15 MCG/2 ML NEB RESP TX SCH ×2 (06:44→19:41)
[2020-10-11] MEDS: IPRATROPIUM 500 MCG/2.5 ML NEB RESP TX SCH ×4 (06:44→19:41)
[2020-10-11] MEDS ORDERED: SODIUM CHLORIDE 0.9% 1,000 ML IV ONE (07:14)
[2020-10-11] MEDS: BACLOFEN 20 MG TABLET PO SCH ×4 (08:12→20:15)
[2020-10-11] MEDS: FAMOTIDINE 8 MG/ML 50 ML/BOTTLE PEG SCH ×2 (08:12→20:14)
[2020-10-11] MEDS: APIXABAN 5 MG TABLET PER TUBE SCH ×2 (08:12→20:16)
[2020-10-11] MEDS: NYSTATIN 500,000 UNIT/5 ML UDCUP SWISH/SWAL SCH ×4 (08:12→20:16)
[2020-10-11] MEDS: buPROPion 100 MG TABLET PER TUBE SCH ×2 (08:12→20:15)
[2020-10-11] MEDS: DICLOFENAC 1% GEL 100 GM TUBE TOP SCH ×3 (08:12→20:17)
[2020-10-11] MEDS: DILTIAZEM 30 MG TABLET PO SCH ×3 (08:13→20:16)
[2020-10-11] MEDS: diphenhydrAMINE 25 MG/10 ML UDCUP PER TUBE PRN (20:16)
[2020-10-11] MEDS: LIDOCAINE 5% PATCH TRANSDERM SCH (21:15)
[2020-10-12] MEDS: BUDESONIDE 0.5 MG/2 ML NEB RESP TX SCH ×2 (07:04→19:45)
[2020-10-12] MEDS: IPRATROPIUM 500 MCG/2.5 ML NEB RESP TX SCH ×4 (07:04→19:45)
[2020-10-12] MEDS: ARFORMOTEROL 15 MCG/2 ML NEB RESP TX SCH ×2 (07:04→19:45)
[2020-10-12] MEDS: buPROPion 100 MG TABLET PER TUBE SCH ×2 (08:28→20:03)
[2020-10-12] MEDS: NYSTATIN 500,000 UNIT/5 ML UDCUP SWISH/SWAL SCH ×4 (08:28→20:03)
[2020-10-12] MEDS: BACLOFEN 20 MG TABLET PO SCH ×4 (08:28→20:03)
[2020-10-12] MEDS: APIXABAN 5 MG TABLET PER TUBE SCH ×2 (08:29→20:04)
[2020-10-12] MEDS: DILTIAZEM 30 MG TABLET PO SCH ×3 (08:29→21:22)
[2020-10-12] MEDS: FAMOTIDINE 8 MG/ML 50 ML/BOTTLE PEG SCH ×2 (08:30→20:05)
[2020-10-12] MEDS: DICLOFENAC 1% GEL 100 GM TUBE TOP SCH ×3 (08:30→20:03)
[2020-10-12] MEDS: clonazePAM 0.5 MG TABLET PO PRN (16:21)
[2020-10-12] MEDS: diphenhydrAMINE 25 MG/10 ML UDCUP PER TUBE PRN (20:04)
[2020-10-12] MEDS: LIDOCAINE 5% PATCH TRANSDERM SCH (20:04)
[2020-10-13] MEDS: ARFORMOTEROL 15 MCG/2 ML NEB RESP TX SCH ×2 (06:52→18:28)
[2020-10-13] MEDS: IPRATROPIUM 500 MCG/2.5 ML NEB RESP TX SCH ×4 (06:52→18:28)
[2020-10-13] MEDS: BUDESONIDE 0.5 MG/2 ML NEB RESP TX SCH ×2 (06:52→18:28)
[2020-10-13] MEDS: DILTIAZEM 30 MG TABLET PO SCH ×3 (08:15→20:40)
[2020-10-13] MEDS: BACLOFEN 20 MG TABLET PO SCH ×4 (08:25→20:40)
[2020-10-13] MEDS: NYSTATIN 500,000 UNIT/5 ML UDCUP SWISH/SWAL SCH ×4 (08:25→20:40)
[2020-10-13] MEDS: FAMOTIDINE 8 MG/ML 50 ML/BOTTLE PEG SCH ×2 (08:25→20:41)
[2020-10-13] MEDS: buPROPion 100 MG TABLET PER TUBE SCH ×2 (08:25→20:40)
[2020-10-13] MEDS: APIXABAN 5 MG TABLET PER TUBE SCH ×2 (08:25→20:39)
[2020-10-13] MEDS: DICLOFENAC 1% GEL 100 GM TUBE TOP SCH ×3 (08:26→20:41)
[2020-10-13] MEDS ORDERED: SODIUM CHLORIDE 0.9% 500 ML IV ONE (08:33)
[2020-10-13] MEDS: clonazePAM 0.5 MG TABLET PO PRN ×2 (12:21→18:37)
[2020-10-13] MEDS ORDERED: POLYVINYL ALCOHOL 1.4% OPH SOLN 15 ML BOTTLE BOTH EYES PRN (14:44)
[2020-10-13] MEDS: LIDOCAINE 5% PATCH TRANSDERM SCH (20:41)
[2020-10-14 02:59] LABS: Basophils % 0.2 % (0.0-0.8); Immature Granulocytes % 0.2 %; Immature Granulocytes Absolute 0.01 #; Lymphocytes # 1.2 10*3/uL (1.4-4.0); Mean Corpuscular HGB Conc 29.4 GM/DL (32-36); Mean Platelet Volume 11.6 FL (9.6-12.0); Monocytes % 14.4 % (1.7-12.7); Neutrophils % 62.2 % (38.7-73.9); Platelet Count 206 T/CUMM (130-400); Red Cell Distribution Width 14.6 % (9.3-17.3); White Blood Count 5.4 T/CUMM (4-12)
[2020-10-14 03:21] LABS: Alanine Aminotransferase 52 U/L (13-56); Albumin 2.6 G/DL (3.4-5.0); Alkaline Phosphatase 91 U/L (45-117); Aspartate Amino Transferase 30 U/L (0-37); Blood Urea Nitrogen 19 MG/DL (7-18); Calcium 9.2 MG/DL (8.5-10.1); Carbon Dioxide 35 MMOL/L (21-32); Estimated Glom Filtration Rate 208 ML/MIN; Glucose 106 MG/DL (74-106); Osmolality,Calculated 282.3 MOS/KG (273-304); Potassium 4.1 MMOL/L (3.5-5.1); Sodium 141 MMOL/L (136-145); Total Protein 6.3 G/DL (6.4-8.2)
[2020-10-14] MEDS: BUDESONIDE 0.5 MG/2 ML NEB RESP TX SCH ×2 (07:02→18:50)
[2020-10-14] MEDS: ARFORMOTEROL 15 MCG/2 ML NEB RESP TX SCH ×2 (07:02→18:50)
[2020-10-14] MEDS: IPRATROPIUM 500 MCG/2.5 ML NEB RESP TX SCH ×4 (07:02→18:50)
[2020-10-14] MEDS: BACLOFEN 20 MG TABLET PO SCH ×4 (08:50→20:28)
[2020-10-14] MEDS: DILTIAZEM 30 MG TABLET PO SCH ×3 (08:50→20:27)
[2020-10-14] MEDS: buPROPion 100 MG TABLET PER TUBE SCH ×2 (08:50→20:29)
[2020-10-14] MEDS: NYSTATIN 500,000 UNIT/5 ML UDCUP SWISH/SWAL SCH ×4 (08:50→20:29)
[2020-10-14] MEDS: APIXABAN 5 MG TABLET PER TUBE SCH ×2 (08:50→20:28)
[2020-10-14] MEDS: DICLOFENAC 1% GEL 100 GM TUBE TOP SCH ×3 (08:50→20:29)
[2020-10-14] MEDS: FAMOTIDINE 8 MG/ML 50 ML/BOTTLE PEG SCH ×2 (08:50→21:16)
[2020-10-14] MEDS: clonazePAM 0.5 MG TABLET PO PRN (13:28)
[2020-10-14] MEDS: LIDOCAINE 5% PATCH TRANSDERM SCH (20:28)
[2020-10-15 05:51] LABS: Basophils % 0.1 % (0.0-0.8); Hematocrit 36.5 VOL% (35.7-47.0); Hemoglobin 11.1 GM/DL (12.0-16.0); Immature Granulocytes % 0.3 %; Immature Granulocytes Absolute 0.02 #; Lymphocytes % 14.6 % (21.3-54.2); Mean Corpuscular HGB Conc 30.4 GM/DL (32-36); Mean Corpuscular Volume 97.3 FL (87-102); Mean Platelet Volume 12.2 FL (9.6-12.0); Monocytes % 14.3 % (1.7-12.7); Neutrophils % 70.7 % (38.7-73.9); Platelet Count 219 T/CUMM (130-400); Red Blood Count 3.75 MC/CUMM (3.8-5.5); Red Cell Distribution Width 14.4 % (9.3-17.3); White Blood Count 6.7 T/CUMM (4-12)
[2020-10-15 06:27] LABS: Blood Urea Nitrogen 18 MG/DL (7-18); Calcium 9.6 MG/DL (8.5-10.1); Carbon Dioxide 33 MMOL/L (21-32); Estimated Glom Filtration Rate 210 ML/MIN; Glucose 121 MG/DL (74-106); Osmolality,Calculated 279.5 MOS/KG (273-304); Potassium 3.8 MMOL/L (3.5-5.1); Sodium 139 MMOL/L (136-145)
[2020-10-15] MEDS: BUDESONIDE 0.5 MG/2 ML NEB RESP TX SCH ×2 (07:00→20:25)
[2020-10-15] MEDS: IPRATROPIUM 500 MCG/2.5 ML NEB RESP TX SCH ×4 (07:00→20:25)
[2020-10-15] MEDS: ARFORMOTEROL 15 MCG/2 ML NEB RESP TX SCH ×2 (07:00→20:25)
[2020-10-15] MEDS: buPROPion 100 MG TABLET PER TUBE SCH ×2 (09:35→20:22)
[2020-10-15] MEDS: DICLOFENAC 1% GEL 100 GM TUBE TOP SCH ×3 (09:35→20:23)
[2020-10-15] MEDS: FAMOTIDINE 8 MG/ML 50 ML/BOTTLE PEG SCH ×2 (09:35→20:22)
[2020-10-15] MEDS: NYSTATIN 500,000 UNIT/5 ML UDCUP SWISH/SWAL SCH ×4 (09:35→20:23)
[2020-10-15] MEDS: BACLOFEN 20 MG TABLET PO SCH ×4 (09:35→20:22)
[2020-10-15] MEDS: APIXABAN 5 MG TABLET PER TUBE SCH ×2 (09:35→20:22)
[2020-10-15] MEDS: DILTIAZEM 30 MG TABLET PO SCH ×3 (09:51→20:22)
[2020-10-15] MEDS: clonazePAM 0.5 MG TABLET PO PRN (12:50)
[2020-10-15] MEDS: METOPROLOL TARTRATE 5 MG/5 ML VIAL IV PRN (13:57)
[2020-10-15] MEDS: ACETAMINOPHEN 325 MG TABLET PO PRN (14:16)
[2020-10-15] MEDS: LIDOCAINE 5% PATCH TRANSDERM SCH (20:22)
[2020-10-16] MEDS: ARFORMOTEROL 15 MCG/2 ML NEB RESP TX SCH ×2 (07:05→19:29)
[2020-10-16] MEDS: IPRATROPIUM 500 MCG/2.5 ML NEB RESP TX SCH ×4 (07:05→19:29)
[2020-10-16] MEDS: BUDESONIDE 0.5 MG/2 ML NEB RESP TX SCH ×2 (07:05→19:29)
[2020-10-16] MEDS: buPROPion 100 MG TABLET PER TUBE SCH ×2 (09:38→20:08)
[2020-10-16] MEDS: DILTIAZEM 30 MG TABLET PO SCH ×3 (09:39→20:09)
[2020-10-16] MEDS: NYSTATIN 500,000 UNIT/5 ML UDCUP SWISH/SWAL SCH ×4 (09:40→20:08)
[2020-10-16] MEDS: APIXABAN 5 MG TABLET PER TUBE SCH ×2 (09:40→20:08)
[2020-10-16] MEDS: DICLOFENAC 1% GEL 100 GM TUBE TOP SCH ×3 (09:41→20:09)
[2020-10-16] MEDS: FAMOTIDINE 8 MG/ML 50 ML/BOTTLE PEG SCH ×2 (09:44→20:08)
[2020-10-16] MEDS: BACLOFEN 20 MG TABLET PO SCH ×4 (09:48→20:08)
[2020-10-16 11:24] LABS: ABG Base Excess 8.5 MMOL/L (-2.5-2.5); ABG HCO3 32.2 MMOL/L (20-26); ABG Oxygen Saturation 96.5 % (95-100); ABG PCO2 49.6 MM HG (35-48); ABG PH 7.443 (7.35-7.45); ABG PO2 77.5 MM HG (80-95); ABG TCO2 30.6 MMOL/L (23-27)
[2020-10-16] MEDS ORDERED: SODIUM CHLORIDE 0.9% 500 ML IV ONE (11:28)
[2020-10-16] MEDS ORDERED: SODIUM CHLORIDE 0.9% 1,000 ML IV SCH (11:30)
[2020-10-16] MEDS ORDERED: FUROSEMIDE 20 MG/2 ML VIAL IV ONE (14:01)
[2020-10-16] MEDS: LIDOCAINE 5% PATCH TRANSDERM SCH (20:07)
[2020-10-17] MEDS: BUDESONIDE 0.5 MG/2 ML NEB RESP TX SCH ×2 (07:09→19:24)
[2020-10-17] MEDS: IPRATROPIUM 500 MCG/2.5 ML NEB RESP TX SCH ×4 (07:09→19:24)
[2020-10-17] MEDS: ARFORMOTEROL 15 MCG/2 ML NEB RESP TX SCH ×2 (07:09→19:24)
[2020-10-17] MEDS ORDERED: FUROSEMIDE 40 MG/4 ML VIAL IV ONE (08:58)
[2020-10-17] MEDS: DILTIAZEM 30 MG TABLET PO SCH ×3 (09:10→21:10)
[2020-10-17] MEDS: NYSTATIN 500,000 UNIT/5 ML UDCUP SWISH/SWAL SCH ×4 (09:13→20:21)
[2020-10-17] MEDS: DICLOFENAC 1% GEL 100 GM TUBE TOP SCH ×3 (09:13→20:22)
[2020-10-17] MEDS: FAMOTIDINE 8 MG/ML 50 ML/BOTTLE PEG SCH ×2 (09:13→20:27)
[2020-10-17] MEDS: BACLOFEN 20 MG TABLET PO SCH ×4 (09:14→20:21)
[2020-10-17] MEDS: APIXABAN 5 MG TABLET PER TUBE SCH ×2 (09:14→20:21)
[2020-10-17] MEDS: buPROPion 100 MG TABLET PER TUBE SCH ×2 (09:14→20:21)
[2020-10-17] MEDS: clonazePAM 0.5 MG TABLET PO PRN ×2 (12:40→18:16)
[2020-10-17] MEDS: LIDOCAINE 5% PATCH TRANSDERM SCH (20:20)
[2020-10-18 05:16] LABS: Basophils % 0.2 % (0.0-0.8); Hematocrit 33.7 VOL% (35.7-47.0); Hemoglobin 10.5 GM/DL (12.0-16.0); Immature Granulocytes % 0.2 %; Immature Granulocytes Absolute 0.01 #; Lymphocytes # 1.3 10*3/uL (1.4-4.0); Lymphocytes % 24.3 % (21.3-54.2); Mean Corpuscular HGB Conc 31.2 GM/DL (32-36); Mean Corpuscular Volume 94.7 FL (87-102); Monocytes % 13.3 % (1.7-12.7); Platelet Count 198 T/CUMM (130-400); Red Blood Count 3.56 MC/CUMM (3.8-5.5); White Blood Count 5.4 T/CUMM (4-12)
[2020-10-18 06:44] LABS: Blood Urea Nitrogen 30 MG/DL (7-18); Calcium 9.5 MG/DL (8.5-10.1); Carbon Dioxide 33 MMOL/L (21-32); Estimated Glom Filtration Rate 209 ML/MIN; Glucose 114 MG/DL (74-106); Osmolality,Calculated 287.3 MOS/KG (273-304); Potassium 3.8 MMOL/L (3.5-5.1); Sodium 141 MMOL/L (136-145)
[2020-10-18] MEDS: ARFORMOTEROL 15 MCG/2 ML NEB RESP TX SCH ×2 (07:07→19:07)
[2020-10-18] MEDS: IPRATROPIUM 500 MCG/2.5 ML NEB RESP TX SCH ×4 (07:07→19:07)
[2020-10-18] MEDS: BUDESONIDE 0.5 MG/2 ML NEB RESP TX SCH ×2 (07:07→19:07)
[2020-10-18] MEDS: APIXABAN 5 MG TABLET PER TUBE SCH ×2 (08:11→20:51)
[2020-10-18] MEDS: buPROPion 100 MG TABLET PER TUBE SCH ×2 (08:11→20:51)
[2020-10-18] MEDS: BACLOFEN 20 MG TABLET PO SCH ×4 (08:11→20:51)
[2020-10-18] MEDS: POTASSIUM CHLORIDE 20 MEQ/15 ML UDCUP PER TUBE PRN (08:12)
[2020-10-18] MEDS: NYSTATIN 500,000 UNIT/5 ML UDCUP SWISH/SWAL SCH ×4 (08:12→20:50)
[2020-10-18] MEDS: FAMOTIDINE 8 MG/ML 50 ML/BOTTLE PEG SCH ×2 (08:12→20:52)
[2020-10-18] MEDS: DILTIAZEM 30 MG TABLET PO SCH ×3 (08:13→20:52)
[2020-10-18] MEDS: DICLOFENAC 1% GEL 100 GM TUBE TOP SCH ×3 (08:14→20:52)
[2020-10-18] MEDS: clonazePAM 0.5 MG TABLET PO PRN (11:58)
[2020-10-18] MEDS: LIDOCAINE 5% PATCH TRANSDERM SCH (20:50)
[2020-10-19] MEDS: IPRATROPIUM 500 MCG/2.5 ML NEB RESP TX SCH ×4 (07:51→20:08)
[2020-10-19] MEDS: BUDESONIDE 0.5 MG/2 ML NEB RESP TX SCH ×2 (07:51→20:08)
[2020-10-19] MEDS: ARFORMOTEROL 15 MCG/2 ML NEB RESP TX SCH ×2 (07:51→20:08)
[2020-10-19] MEDS: DILTIAZEM 30 MG TABLET PO SCH ×3 (08:20→22:11)
[2020-10-19] MEDS: BACLOFEN 20 MG TABLET PO SCH ×4 (08:32→21:14)
[2020-10-19] MEDS: FAMOTIDINE 8 MG/ML 50 ML/BOTTLE PEG SCH ×2 (08:32→22:12)
[2020-10-19] MEDS: NYSTATIN 500,000 UNIT/5 ML UDCUP SWISH/SWAL SCH ×4 (08:32→21:13)
[2020-10-19] MEDS: DICLOFENAC 1% GEL 100 GM TUBE TOP SCH ×3 (08:33→21:14)
[2020-10-19] MEDS: clonazePAM 0.5 MG TABLET PO PRN (08:33)
[2020-10-19] MEDS: APIXABAN 5 MG TABLET PER TUBE SCH ×2 (08:33→21:14)
[2020-10-19] MEDS: buPROPion 100 MG TABLET PER TUBE SCH ×2 (08:33→21:13)
[2020-10-19] MEDS: ALPRAZolam 0.5 MG TABLET PO PRN ×2 (12:37→21:14)
[2020-10-19] MEDS: LIDOCAINE 5% PATCH TRANSDERM SCH (21:13)
[2020-10-19] MEDS: HYDROCORTISONE 1% CREAM 28 GM TUBE TOP SCH (21:13)
[2020-10-20] MEDS: IPRATROPIUM 500 MCG/2.5 ML NEB RESP TX SCH ×4 (06:58→19:25)
[2020-10-20] MEDS: ARFORMOTEROL 15 MCG/2 ML NEB RESP TX SCH ×2 (06:58→19:25)
[2020-10-20] MEDS: BUDESONIDE 0.5 MG/2 ML NEB RESP TX SCH ×2 (06:59→19:25)
[2020-10-20] MEDS: ALPRAZolam 0.5 MG TABLET PO PRN ×3 (08:43→20:40)
[2020-10-20] MEDS: DICLOFENAC 1% GEL 100 GM TUBE TOP SCH ×3 (09:25→20:40)
[2020-10-20] MEDS: HYDROCORTISONE 1% CREAM 28 GM TUBE TOP SCH ×2 (09:25→20:40)
[2020-10-20] MEDS: FAMOTIDINE 8 MG/ML 50 ML/BOTTLE PEG SCH ×2 (09:25→20:40)
[2020-10-20] MEDS: buPROPion 100 MG TABLET PER TUBE SCH ×2 (09:25→20:40)
[2020-10-20] MEDS: BACLOFEN 20 MG TABLET PO SCH ×4 (09:25→20:40)
[2020-10-20] MEDS: APIXABAN 5 MG TABLET PER TUBE SCH ×2 (09:25→20:40)
[2020-10-20] MEDS: DILTIAZEM 30 MG TABLET PO SCH ×3 (09:25→20:44)
[2020-10-20] MEDS: NYSTATIN 500,000 UNIT/5 ML UDCUP SWISH/SWAL SCH ×4 (09:25→20:40)
[2020-10-20] MEDS: LIDOCAINE 5% PATCH TRANSDERM SCH (20:45)
[2020-10-21] MEDS: BUDESONIDE 0.5 MG/2 ML NEB RESP TX SCH ×2 (07:40→20:00)
[2020-10-21] MEDS: IPRATROPIUM 500 MCG/2.5 ML NEB RESP TX SCH ×4 (07:40→19:59)
[2020-10-21] MEDS: ARFORMOTEROL 15 MCG/2 ML NEB RESP TX SCH ×2 (07:40→19:59)
[2020-10-21] MEDS: ALPRAZolam 0.5 MG TABLET PO PRN ×2 (09:00→15:48)
[2020-10-21] MEDS: BACLOFEN 20 MG TABLET PO SCH ×4 (09:19→20:59)
[2020-10-21] MEDS: APIXABAN 5 MG TABLET PER TUBE SCH ×2 (09:19→20:57)
[2020-10-21] MEDS: HYDROCORTISONE 1% CREAM 28 GM TUBE TOP SCH ×2 (09:19→20:58)
[2020-10-21] MEDS: DICLOFENAC 1% GEL 100 GM TUBE TOP SCH ×3 (09:19→20:58)
[2020-10-21] MEDS: DILTIAZEM 30 MG TABLET PO SCH ×3 (09:19→20:57)
[2020-10-21] MEDS: FAMOTIDINE 8 MG/ML 50 ML/BOTTLE PEG SCH ×2 (09:19→20:57)
[2020-10-21] MEDS: buPROPion 100 MG TABLET PER TUBE SCH ×2 (09:19→20:56)
[2020-10-21] MEDS: NYSTATIN 500,000 UNIT/5 ML UDCUP SWISH/SWAL SCH ×4 (09:19→20:58)
[2020-10-21] MEDS: LIDOCAINE 5% PATCH TRANSDERM SCH (20:58)
[2020-10-22] MEDS: ALPRAZolam 0.5 MG TABLET PO PRN ×3 (04:35→21:14)
[2020-10-22] MEDS: ARFORMOTEROL 15 MCG/2 ML NEB RESP TX SCH ×2 (07:38→19:47)
[2020-10-22] MEDS: BUDESONIDE 0.5 MG/2 ML NEB RESP TX SCH ×2 (07:38→19:47)
[2020-10-22] MEDS: IPRATROPIUM 500 MCG/2.5 ML NEB RESP TX SCH ×4 (07:38→19:47)
[2020-10-22] MEDS: buPROPion 100 MG TABLET PER TUBE SCH ×2 (08:20→20:22)
[2020-10-22] MEDS: DILTIAZEM 30 MG TABLET PO SCH ×3 (08:21→20:27)
[2020-10-22] MEDS: BACLOFEN 20 MG TABLET PO SCH ×4 (08:22→20:22)
[2020-10-22] MEDS: APIXABAN 5 MG TABLET PER TUBE SCH ×2 (08:22→20:22)
[2020-10-22] MEDS: FAMOTIDINE 8 MG/ML 50 ML/BOTTLE PEG SCH ×2 (08:22→20:23)
[2020-10-22] MEDS: NYSTATIN 500,000 UNIT/5 ML UDCUP SWISH/SWAL SCH ×4 (08:22→20:22)
[2020-10-22] MEDS: DICLOFENAC 1% GEL 100 GM TUBE TOP SCH ×3 (08:22→20:24)
[2020-10-22] MEDS: HYDROCORTISONE 1% CREAM 28 GM TUBE TOP SCH ×2 (08:23→20:24)
[2020-10-22] MEDS: LIDOCAINE 5% PATCH TRANSDERM SCH (20:23)
[2020-10-23] MEDS: ALPRAZolam 0.5 MG TABLET PO PRN ×3 (05:18→17:38)
[2020-10-23] MEDS: IPRATROPIUM 500 MCG/2.5 ML NEB RESP TX SCH ×4 (07:15→20:00)
[2020-10-23] MEDS: BUDESONIDE 0.5 MG/2 ML NEB RESP TX SCH ×2 (07:15→20:00)
[2020-10-23] MEDS: ARFORMOTEROL 15 MCG/2 ML NEB RESP TX SCH ×2 (07:15→20:00)
[2020-10-23] MEDS: DILTIAZEM 30 MG TABLET PO SCH ×2 (10:29→17:36)
[2020-10-23] MEDS: POTASSIUM CHLORIDE 20 MEQ/15 ML UDCUP PER TUBE PRN (10:30)
[2020-10-23] MEDS: BACLOFEN 20 MG TABLET PO SCH ×4 (10:33→21:49)
[2020-10-23] MEDS: NYSTATIN 500,000 UNIT/5 ML UDCUP SWISH/SWAL SCH ×4 (10:34→21:49)
[2020-10-23] MEDS: buPROPion 100 MG TABLET PER TUBE SCH ×2 (10:34→21:49)
[2020-10-23] MEDS: APIXABAN 5 MG TABLET PER TUBE SCH ×2 (10:34→21:49)
[2020-10-23] MEDS: HYDROCORTISONE 1% CREAM 28 GM TUBE TOP SCH ×2 (10:35→21:50)
[2020-10-23] MEDS: FAMOTIDINE 8 MG/ML 50 ML/BOTTLE PEG SCH ×2 (10:35→21:49)
[2020-10-23] MEDS: DICLOFENAC 1% GEL 100 GM TUBE TOP SCH ×3 (10:36→21:50)
[2020-10-23] MEDS: LIDOCAINE 5% PATCH TRANSDERM SCH (21:50)
[2020-10-24] MEDS: DILTIAZEM 30 MG TABLET PO SCH ×4 (00:12→20:44)
[2020-10-24] MEDS: ALPRAZolam 0.5 MG TABLET PO PRN ×3 (00:13→15:22)
[2020-10-24] MEDS: ARFORMOTEROL 15 MCG/2 ML NEB RESP TX SCH ×2 (07:16→21:10)
[2020-10-24] MEDS: BUDESONIDE 0.5 MG/2 ML NEB RESP TX SCH ×2 (07:16→21:10)
[2020-10-24] MEDS: IPRATROPIUM 500 MCG/2.5 ML NEB RESP TX SCH ×4 (07:16→21:10)
[2020-10-24] MEDS: FAMOTIDINE 8 MG/ML 50 ML/BOTTLE PEG SCH ×2 (08:06→21:19)
[2020-10-24] MEDS: NYSTATIN 500,000 UNIT/5 ML UDCUP SWISH/SWAL SCH ×4 (08:06→20:44)
[2020-10-24] MEDS: buPROPion 100 MG TABLET PER TUBE SCH ×2 (08:07→20:44)
[2020-10-24] MEDS: APIXABAN 5 MG TABLET PER TUBE SCH ×2 (08:09→20:44)
[2020-10-24] MEDS: DICLOFENAC 1% GEL 100 GM TUBE TOP SCH ×3 (08:10→21:19)
[2020-10-24] MEDS: HYDROCORTISONE 1% CREAM 28 GM TUBE TOP SCH ×2 (08:10→20:45)
[2020-10-24] MEDS: BACLOFEN 20 MG TABLET PO SCH ×4 (08:11→21:19)
[2020-10-24] MEDS: LIDOCAINE 5% PATCH TRANSDERM SCH (20:45)
[2020-10-25 06:25] LABS: Blood Urea Nitrogen 28 MG/DL (7-18); Calcium 9.8 MG/DL (8.5-10.1); Estimated Glom Filtration Rate 207 ML/MIN; Glucose 100 MG/DL (74-106); Osmolality,Calculated 278.8 MOS/KG (273-304); Potassium 4.6 MMOL/L (3.5-5.1); Sodium 137 MMOL/L (136-145)
[2020-10-25 06:33] LABS: Carbon Dioxide 35 MMOL/L (21-32)
[2020-10-25] MEDS: BUDESONIDE 0.5 MG/2 ML NEB RESP TX SCH ×2 (06:59→19:48)
[2020-10-25] MEDS: IPRATROPIUM 500 MCG/2.5 ML NEB RESP TX SCH ×4 (06:59→19:48)
[2020-10-25] MEDS: ARFORMOTEROL 15 MCG/2 ML NEB RESP TX SCH ×2 (06:59→19:48)
[2020-10-25] MEDS: DILTIAZEM 30 MG TABLET PO SCH ×3 (08:36→20:30)
[2020-10-25] MEDS: NYSTATIN 500,000 UNIT/5 ML UDCUP SWISH/SWAL SCH ×4 (08:37→20:30)
[2020-10-25] MEDS: FAMOTIDINE 8 MG/ML 50 ML/BOTTLE PEG SCH ×2 (08:37→20:30)
[2020-10-25] MEDS: APIXABAN 5 MG TABLET PER TUBE SCH ×2 (08:37→20:30)
[2020-10-25] MEDS: buPROPion 100 MG TABLET PER TUBE SCH ×2 (08:37→20:31)
[2020-10-25] MEDS: HYDROCORTISONE 1% CREAM 28 GM TUBE TOP SCH ×2 (08:37→20:31)
[2020-10-25] MEDS: DICLOFENAC 1% GEL 100 GM TUBE TOP SCH ×3 (08:37→20:31)
[2020-10-25] MEDS: BACLOFEN 20 MG TABLET PO SCH ×4 (08:37→20:31)
[2020-10-25] MEDS: ALPRAZolam 0.5 MG TABLET PO PRN (16:00)
[2020-10-25] MEDS: LIDOCAINE 5% PATCH TRANSDERM SCH (20:29)
[2020-10-26] MEDS: ALPRAZolam 0.5 MG TABLET PO PRN ×3 (04:07→21:14)
[2020-10-26] MEDS: BUDESONIDE 0.5 MG/2 ML NEB RESP TX SCH ×2 (06:57→19:26)
[2020-10-26] MEDS: ARFORMOTEROL 15 MCG/2 ML NEB RESP TX SCH ×2 (06:57→19:26)
[2020-10-26] MEDS: IPRATROPIUM 500 MCG/2.5 ML NEB RESP TX SCH ×2 (06:57→10:28)
[2020-10-26] MEDS: APIXABAN 5 MG TABLET PER TUBE SCH ×2 (08:03→21:15)
[2020-10-26] MEDS: DILTIAZEM 30 MG TABLET PO SCH ×3 (08:03→21:15)
[2020-10-26] MEDS: FAMOTIDINE 8 MG/ML 50 ML/BOTTLE PEG SCH ×2 (08:04→21:17)
[2020-10-26] MEDS: DICLOFENAC 1% GEL 100 GM TUBE TOP SCH ×3 (08:04→21:17)
[2020-10-26] MEDS: buPROPion 100 MG TABLET PER TUBE SCH ×2 (08:04→21:15)
[2020-10-26] MEDS: NYSTATIN 500,000 UNIT/5 ML UDCUP SWISH/SWAL SCH ×4 (08:04→21:15)
[2020-10-26] MEDS: HYDROCORTISONE 1% CREAM 28 GM TUBE TOP SCH ×2 (08:04→21:17)
[2020-10-26] MEDS: BACLOFEN 20 MG TABLET PO SCH ×4 (08:04→21:15)
[2020-10-26 15:28] LABS: Basophils % 0.3 % (0.0-0.8); Hemoglobin 10.9 GM/DL (12.0-16.0); Immature Granulocytes % 0.5 %; Immature Granulocytes Absolute 0.03 #; Lymphocytes # 0.6 10*3/uL (1.4-4.0); Lymphocytes % 9.9 % (21.3-54.2); Mean Corpuscular HGB Conc 30.3 GM/DL (32-36); Mean Platelet Volume 12.3 FL (9.6-12.0); Monocytes % 8.7 % (1.7-12.7); Neutrophils % 80.6 % (38.7-73.9); Platelet Count 191 T/CUMM (130-400); Red Blood Count 3.71 MC/CUMM (3.8-5.5); Red Cell Distribution Width 13.7 % (9.3-17.3); White Blood Count 5.8 T/CUMM (4-12)
[2020-10-26] MEDS: ALBUTEROL/IPRATROPIUM 3 ML NEB RESP TX SCH ×2 (15:32→23:40)
[2020-10-26 15:40] LABS: Calcium 9.6 MG/DL (8.5-10.1); Osmolality,Calculated 285.3 MOS/KG (273-304); Potassium 4.5 MMOL/L (3.5-5.1)
[2020-10-26] MEDS: CEFEPIME 1,000 MG in SODIUM CHLORIDE 0.9% 100 ML IV SCH ×2 (16:27→21:17)
[2020-10-26] MEDS: VANCOMYCIN INJ 1,500 MG in SODIUM CHLORIDE 0.9% 500 ML IV SCH (17:20)
[2020-10-26] MEDS: LIDOCAINE 5% PATCH TRANSDERM SCH (21:14)
[2020-10-26] MEDS: DORNASE ALFA 2.5 MG/2.5 ML VIAL RESP TX SCH (23:48)
[2020-10-27] MEDS: CEFEPIME 1,000 MG in SODIUM CHLORIDE 0.9% 100 ML IV SCH ×4 (03:40→23:18)
[2020-10-27 04:42] LABS: ABG Base Excess 15.5 MMOL/L (-2.5-2.5); ABG HCO3 39.5 MMOL/L (20-26); ABG PCO2 55.7 MM HG (35-48); ABG PH 7.482 (7.35-7.45); ABG TCO2 37.7 MMOL/L (23-27); Allen Test Positive; Pt O2 Delivery Device BIPAP
[2020-10-27] MEDS: VANCOMYCIN INJ 1,500 MG in SODIUM CHLORIDE 0.9% 500 ML IV SCH ×2 (05:45→17:33)
[2020-10-27 06:01] LABS: Basophils % 0.1 % (0.0-0.8); Hematocrit 32.7 VOL% (35.7-47.0); Immature Granulocytes % 0.4 %; Immature Granulocytes Absolute 0.03 #; Lymphocytes # 1.1 10*3/uL (1.4-4.0); Lymphocytes % 15.7 % (21.3-54.2); Mean Corpuscular HGB Conc 30.6 GM/DL (32-36); Mean Corpuscular Volume 95.6 FL (87-102); Mean Platelet Volume 12.9 FL (9.6-12.0); Monocytes % 10.4 % (1.7-12.7); Neutrophils % 73.4 % (38.7-73.9); Platelet Count 187 T/CUMM (130-400); Red Blood Count 3.42 MC/CUMM (3.8-5.5); Red Cell Distribution Width 14.3 % (9.3-17.3); White Blood Count 6.9 T/CUMM (4-12)
[2020-10-27 06:15] LABS: Calcium 9.4 MG/DL (8.5-10.1); Osmolality,Calculated 287.1 MOS/KG (273-304); Potassium 4.2 MMOL/L (3.5-5.1)
[2020-10-27 06:27] LABS: Hypochromasia 1+; Microcytosis 1+; Platelet Estimate Adequate
[2020-10-27] MEDS: ARFORMOTEROL 15 MCG/2 ML NEB RESP TX SCH ×2 (07:20→20:07)
[2020-10-27] MEDS: ALBUTEROL/IPRATROPIUM 3 ML NEB RESP TX SCH ×3 (07:20→20:07)
[2020-10-27] MEDS: BUDESONIDE 0.5 MG/2 ML NEB RESP TX SCH ×2 (07:20→20:07)
[2020-10-27] MEDS: DORNASE ALFA 2.5 MG/2.5 ML VIAL RESP TX SCH ×2 (07:33→20:07)
[2020-10-27] MEDS: NYSTATIN 500,000 UNIT/5 ML UDCUP SWISH/SWAL SCH ×4 (08:23→23:18)
[2020-10-27] MEDS: BACLOFEN 20 MG TABLET PO SCH ×4 (08:24→20:06)
[2020-10-27] MEDS: buPROPion 100 MG TABLET PER TUBE SCH ×2 (08:24→20:05)
[2020-10-27] MEDS: DILTIAZEM 30 MG TABLET PO SCH ×3 (08:24→20:05)
[2020-10-27] MEDS: DICLOFENAC 1% GEL 100 GM TUBE TOP SCH ×3 (08:25→21:05)
[2020-10-27] MEDS: HYDROCORTISONE 1% CREAM 28 GM TUBE TOP SCH ×2 (08:25→21:04)
[2020-10-27] MEDS: APIXABAN 5 MG TABLET PER TUBE SCH ×2 (08:28→20:06)
[2020-10-27] MEDS: FAMOTIDINE 8 MG/ML 50 ML/BOTTLE PEG SCH ×2 (10:20→21:05)
[2020-10-27] MEDS: LIDOCAINE 5% PATCH TRANSDERM SCH (23:18)
[2020-10-28] MEDS: CEFEPIME 1,000 MG in SODIUM CHLORIDE 0.9% 100 ML IV SCH ×4 (04:35→22:20)
[2020-10-28] MEDS: VANCOMYCIN INJ 1,500 MG in SODIUM CHLORIDE 0.9% 500 ML IV SCH ×2 (05:52→18:21)
[2020-10-28] MEDS: DORNASE ALFA 2.5 MG/2.5 ML VIAL RESP TX SCH ×2 (08:01→18:01)
[2020-10-28] MEDS: ALBUTEROL/IPRATROPIUM 3 ML NEB RESP TX SCH ×2 (08:01→15:46)
[2020-10-28] MEDS: ARFORMOTEROL 15 MCG/2 ML NEB RESP TX SCH ×2 (08:01→18:01)
[2020-10-28] MEDS: BUDESONIDE 0.5 MG/2 ML NEB RESP TX SCH ×2 (08:01→18:01)
[2020-10-28] MEDS: DILTIAZEM 30 MG TABLET PO SCH ×3 (08:22→21:13)
[2020-10-28] MEDS: NYSTATIN 500,000 UNIT/5 ML UDCUP SWISH/SWAL SCH ×4 (08:27→21:13)
[2020-10-28] MEDS: HYDROCORTISONE 1% CREAM 28 GM TUBE TOP SCH ×2 (08:28→21:13)
[2020-10-28] MEDS: FAMOTIDINE 8 MG/ML 50 ML/BOTTLE PEG SCH ×2 (08:28→21:13)
[2020-10-28] MEDS: APIXABAN 5 MG TABLET PER TUBE SCH ×2 (08:28→21:13)
[2020-10-28] MEDS: BACLOFEN 20 MG TABLET PO SCH ×4 (08:28→21:13)
[2020-10-28] MEDS: buPROPion 100 MG TABLET PER TUBE SCH ×2 (08:28→21:13)
[2020-10-28] MEDS: DICLOFENAC 1% GEL 100 GM TUBE TOP SCH ×3 (08:28→21:13)
[2020-10-28 13:10] LABS: ABG Base Excess 6.8 MMOL/L (-2.5-2.5); ABG HCO3 30.7 MMOL/L (20-26); ABG Oxygen Saturation 97.3 % (95-100); ABG PCO2 57.6 MM HG (35-48); ABG PH 7.375 (7.35-7.45); ABG PO2 94.3 MM HG (80-95); ABG TCO2 30.5 MMOL/L (23-27); Allen Test Positive; Pt O2 Delivery Device BIPAP
[2020-10-28] MEDS: ACETYLCYSTEINE 20% 800 MG/4 ML VIAL RESP TX SCH (15:46)
[2020-10-28] MEDS: LIDOCAINE 5% PATCH TRANSDERM SCH (21:13)
[2020-10-28] MEDS: ALPRAZolam 0.5 MG TABLET PO PRN (21:15)
[2020-10-29] MEDS: ALBUTEROL/IPRATROPIUM 3 ML NEB RESP TX SCH ×4 (01:00→23:22)
[2020-10-29] MEDS: ACETYLCYSTEINE 20% 800 MG/4 ML VIAL RESP TX SCH ×4 (01:00→23:22)
[2020-10-29] MEDS: CEFEPIME 1,000 MG in SODIUM CHLORIDE 0.9% 100 ML IV SCH (03:23)
[2020-10-29] MEDS: VANCOMYCIN INJ 1,500 MG in SODIUM CHLORIDE 0.9% 500 ML IV SCH ×2 (06:07→17:20)
[2020-10-29 06:39] LABS: Hematocrit 31.9 VOL% (35.7-47.0); Hemoglobin 9.5 GM/DL (12.0-16.0); Immature Granulocytes % 0.5 %; Immature Granulocytes Absolute 0.03 #; Lymphocytes # 0.7 10*3/uL (1.4-4.0); Lymphocytes % 11.4 % (21.3-54.2); Mean Corpuscular HGB Conc 29.8 GM/DL (32-36); Mean Corpuscular Volume 96.7 FL (87-102); Mean Platelet Volume 12.8 FL (9.6-12.0); Monocytes % 12.3 % (1.7-12.7); Neutrophils % 75.8 % (38.7-73.9); Platelet Count 157 T/CUMM (130-400); Red Cell Distribution Width 14.6 % (9.3-17.3); White Blood Count 5.7 T/CUMM (4-12)
[2020-10-29 06:58] LABS: Blood Urea Nitrogen 30 MG/DL (7-18); Carbon Dioxide 32 MMOL/L (21-32); Glucose 146 MG/DL (74-106); Potassium 3.7 MMOL/L (3.5-5.1); Sodium 143 MMOL/L (136-145)
[2020-10-29] MEDS: ARFORMOTEROL 15 MCG/2 ML NEB RESP TX SCH ×2 (07:06→19:58)
[2020-10-29] MEDS: DORNASE ALFA 2.5 MG/2.5 ML VIAL RESP TX SCH ×2 (07:06→19:58)
[2020-10-29] MEDS: BUDESONIDE 0.5 MG/2 ML NEB RESP TX SCH ×2 (07:06→19:58)
[2020-10-29 07:10] LABS: Estimated Glom Filtration Rate 228 ML/MIN
[2020-10-29 09:00] LABS: ABG Base Excess 6.9 MMOL/L (-2.5-2.5); ABG HCO3 30.7 MMOL/L (20-26); ABG PCO2 63.8 MM HG (35-48); ABG PH 7.341 (7.35-7.45); ABG TCO2 31.6 MMOL/L (23-27)
[2020-10-29] MEDS: NYSTATIN 500,000 UNIT/5 ML UDCUP SWISH/SWAL SCH ×4 (10:13→20:13)
[2020-10-29] MEDS: buPROPion 100 MG TABLET PER TUBE SCH ×2 (10:13→20:12)
[2020-10-29] MEDS: APIXABAN 5 MG TABLET PER TUBE SCH ×2 (10:13→20:11)
[2020-10-29] MEDS: ALPRAZolam 0.5 MG TABLET PO PRN ×2 (10:13→15:45)
[2020-10-29] MEDS: DILTIAZEM 30 MG TABLET PO SCH ×3 (10:13→20:11)
[2020-10-29] MEDS: BACLOFEN 20 MG TABLET PO SCH ×4 (10:13→20:12)
[2020-10-29] MEDS: HYDROCORTISONE 1% CREAM 28 GM TUBE TOP SCH ×2 (10:15→20:13)
[2020-10-29] MEDS: FAMOTIDINE 8 MG/ML 50 ML/BOTTLE PEG SCH ×2 (10:15→20:13)
[2020-10-29] MEDS: DICLOFENAC 1% GEL 100 GM TUBE TOP SCH ×3 (10:33→20:13)
[2020-10-29] MEDS ORDERED: TUBERCULIN SKIN TEST 0.1 ML SYRINGE INTRADERM ONE (15:03)
[2020-10-29] MEDS: LIDOCAINE 5% PATCH TRANSDERM SCH (20:12)
[2020-10-30] MEDS: VANCOMYCIN INJ 1,500 MG in SODIUM CHLORIDE 0.9% 500 ML IV SCH ×3 (05:16→18:30)
[2020-10-30 05:35] LABS: Hematocrit 30.6 VOL% (35.7-47.0); Hemoglobin 9.3 GM/DL (12.0-16.0); Immature Granulocytes % 0.2 %; Immature Granulocytes Absolute 0.01 #; Lymphocytes % 17.2 % (21.3-54.2); Mean Corpuscular HGB Conc 30.4 GM/DL (32-36); Mean Platelet Volume 12.2 FL (9.6-12.0); Monocytes % 10.2 % (1.7-12.7); Neutrophils % 72.4 % (38.7-73.9); Platelet Count 146 T/CUMM (130-400); Red Blood Count 3.29 MC/CUMM (3.8-5.5); Red Cell Distribution Width 14.6 % (9.3-17.3); White Blood Count 5.8 T/CUMM (4-12)
[2020-10-30] MEDS: ACETYLCYSTEINE 20% 800 MG/4 ML VIAL RESP TX SCH ×3 (07:10→23:04)
[2020-10-30] MEDS: BUDESONIDE 0.5 MG/2 ML NEB RESP TX SCH ×2 (07:10→19:25)
[2020-10-30] MEDS: ALBUTEROL/IPRATROPIUM 3 ML NEB RESP TX SCH ×3 (07:10→23:04)
[2020-10-30] MEDS: ARFORMOTEROL 15 MCG/2 ML NEB RESP TX SCH ×2 (07:10→19:24)
[2020-10-30 07:12] LABS: Albumin 2.4 G/DL (3.4-5.0); Bilirubin,Total 1.2 MG/DL (0.2-1.0); Calcium 9.1 MG/DL (8.5-10.1); Osmolality,Calculated 282.4 MOS/KG (273-304); Total Protein 5.8 G/DL (6.4-8.2)
[2020-10-30] MEDS: NYSTATIN 500,000 UNIT/5 ML UDCUP SWISH/SWAL SCH ×4 (08:04→20:01)
[2020-10-30] MEDS: FAMOTIDINE 8 MG/ML 50 ML/BOTTLE PEG SCH ×2 (08:05→20:01)
[2020-10-30] MEDS: BACLOFEN 20 MG TABLET PO SCH ×4 (08:05→20:01)
[2020-10-30] MEDS: buPROPion 100 MG TABLET PER TUBE SCH ×2 (08:05→20:01)
[2020-10-30] MEDS: DILTIAZEM 30 MG TABLET PO SCH ×3 (08:06→20:00)
[2020-10-30] MEDS: APIXABAN 5 MG TABLET PER TUBE SCH ×2 (08:06→20:00)
[2020-10-30] MEDS: HYDROCORTISONE 1% CREAM 28 GM TUBE TOP SCH ×2 (08:08→20:02)
[2020-10-30] MEDS: DICLOFENAC 1% GEL 100 GM TUBE TOP SCH ×3 (08:08→20:02)
[2020-10-30] MEDS: DORNASE ALFA 2.5 MG/2.5 ML VIAL RESP TX SCH (10:15)
[2020-10-30] MEDS: ALPRAZolam 0.5 MG TABLET PO PRN (14:51)
[2020-10-30] MEDS: FUROSEMIDE 40 MG/4 ML VIAL IV SCH (17:25)
[2020-10-30] MEDS: LIDOCAINE 5% PATCH TRANSDERM SCH (20:01)
[2020-10-31] MEDS: ALPRAZolam 0.5 MG TABLET PO PRN ×4 (02:30→20:13)
[2020-10-31 04:49] LABS: Hematocrit 30.1 VOL% (35.7-47.0); Hemoglobin 9.2 GM/DL (12.0-16.0); Immature Granulocytes % 0.4 %; Immature Granulocytes Absolute 0.02 #; Lymphocytes # 1.3 10*3/uL (1.4-4.0); Lymphocytes % 27.9 % (21.3-54.2); Mean Corpuscular HGB Conc 30.6 GM/DL (32-36); Mean Corpuscular Volume 93.5 FL (87-102); Mean Platelet Volume 12.9 FL (9.6-12.0); Monocytes % 11.4 % (1.7-12.7); Neutrophils % 60.3 % (38.7-73.9); Platelet Count 146 T/CUMM (130-400); Red Blood Count 3.22 MC/CUMM (3.8-5.5); White Blood Count 4.5 T/CUMM (4-12)
[2020-10-31 05:32] LABS: Blood Urea Nitrogen 20 MG/DL (7-18); Calcium 9.3 MG/DL (8.5-10.1); Carbon Dioxide 30 MMOL/L (21-32); Estimated Glom Filtration Rate 208 ML/MIN; Glucose 94 MG/DL (74-106); Potassium 4.1 MMOL/L (3.5-5.1); Sodium 136 MMOL/L (136-145)
[2020-10-31] MEDS: ACETYLCYSTEINE 20% 800 MG/4 ML VIAL RESP TX SCH ×3 (07:09→23:46)
[2020-10-31] MEDS: BUDESONIDE 0.5 MG/2 ML NEB RESP TX SCH ×2 (07:09→19:48)
[2020-10-31] MEDS: ALBUTEROL/IPRATROPIUM 3 ML NEB RESP TX SCH ×3 (07:09→23:46)
[2020-10-31] MEDS: ARFORMOTEROL 15 MCG/2 ML NEB RESP TX SCH ×2 (07:09→19:48)
[2020-10-31 07:45] LABS: Eosinophils 1 % (0-10); Lymphocytes 28 % (20-55); Platelet Estimate Normal; Segmented Neutrophils 65 % (50-85); Total Cells Counted 100
[2020-10-31] MEDS: FUROSEMIDE 40 MG/4 ML VIAL IV SCH ×2 (07:50→15:54)
[2020-10-31 07:51] LABS: Hypochromasia 1+; Microcytosis Slight; Polychromasia Slight; Spherocytes 1+
[2020-10-31 07:52] LABS: Anisocytosis 1+
[2020-10-31] MEDS: DILTIAZEM 30 MG TABLET PO SCH ×3 (08:50→20:13)
[2020-10-31] MEDS: NYSTATIN 500,000 UNIT/5 ML UDCUP SWISH/SWAL SCH ×4 (08:51→20:13)
[2020-10-31] MEDS: BACLOFEN 20 MG TABLET PO SCH ×4 (08:51→20:13)
[2020-10-31] MEDS: buPROPion 100 MG TABLET PER TUBE SCH ×2 (08:51→20:14)
[2020-10-31] MEDS: APIXABAN 5 MG TABLET PER TUBE SCH ×2 (08:51→20:13)
[2020-10-31] MEDS: FAMOTIDINE 8 MG/ML 50 ML/BOTTLE PEG SCH ×2 (08:57→20:12)
[2020-10-31] MEDS: HYDROCORTISONE 1% CREAM 28 GM TUBE TOP SCH ×2 (08:57→20:13)
[2020-10-31] MEDS: DICLOFENAC 1% GEL 100 GM TUBE TOP SCH ×3 (08:58→20:12)
[2020-10-31] MEDS: VANCOMYCIN INJ 1,500 MG in SODIUM CHLORIDE 0.9% 500 ML IV SCH ×2 (16:55)
[2020-10-31] MEDS: diphenhydrAMINE 25 MG/10 ML UDCUP PER TUBE PRN (20:13)
[2020-10-31] MEDS: LIDOCAINE 5% PATCH TRANSDERM SCH (20:14)
[2020-11-01] MEDS: ALPRAZolam 0.5 MG TABLET PO PRN ×3 (06:48→20:30)
[2020-11-01] MEDS: ARFORMOTEROL 15 MCG/2 ML NEB RESP TX SCH ×2 (08:01→18:36)
[2020-11-01] MEDS: ALBUTEROL/IPRATROPIUM 3 ML NEB RESP TX SCH ×3 (08:01→23:40)
[2020-11-01] MEDS: BUDESONIDE 0.5 MG/2 ML NEB RESP TX SCH ×2 (08:01→18:36)
[2020-11-01] MEDS: FUROSEMIDE 40 MG/4 ML VIAL IV SCH ×2 (08:29→17:07)
[2020-11-01] MEDS: NYSTATIN 500,000 UNIT/5 ML UDCUP SWISH/SWAL SCH ×4 (08:29→20:29)
[2020-11-01] MEDS: BACLOFEN 20 MG TABLET PO SCH ×4 (08:30→20:29)
[2020-11-01] MEDS: HYDROCORTISONE 1% CREAM 28 GM TUBE TOP SCH ×2 (08:30→20:31)
[2020-11-01] MEDS: buPROPion 100 MG TABLET PER TUBE SCH ×2 (08:30→20:30)
[2020-11-01] MEDS: DICLOFENAC 1% GEL 100 GM TUBE TOP SCH ×3 (08:30→20:31)
[2020-11-01] MEDS: DILTIAZEM 30 MG TABLET PO SCH ×3 (08:30→20:30)
[2020-11-01] MEDS: FAMOTIDINE 8 MG/ML 50 ML/BOTTLE PEG SCH ×2 (08:30→20:31)
[2020-11-01] MEDS: APIXABAN 5 MG TABLET PER TUBE SCH (10:15)
[2020-11-01] MEDS: ACETAMINOPHEN 325 MG TABLET PO PRN ×2 (10:40→18:17)
[2020-11-01] MEDS: ACETYLCYSTEINE 20% 800 MG/4 ML VIAL RESP TX SCH ×3 (10:56→23:40)
[2020-11-01] MEDS: VANCOMYCIN INJ 1,500 MG in SODIUM CHLORIDE 0.9% 500 ML IV SCH (12:26)
[2020-11-01] MEDS: LIDOCAINE 5% PATCH TRANSDERM SCH (20:30)
[2020-11-02] MEDS: ALBUTEROL/IPRATROPIUM 3 ML NEB RESP TX SCH ×3 (01:20→15:37)
[2020-11-02] MEDS: diphenhydrAMINE 25 MG/10 ML UDCUP PER TUBE PRN ×2 (04:04→20:10)
[2020-11-02] MEDS: ALPRAZolam 0.5 MG TABLET PO PRN ×4 (04:04→22:10)
[2020-11-02] MEDS: VANCOMYCIN INJ 1,500 MG in SODIUM CHLORIDE 0.9% 500 ML IV SCH ×2 (04:05→22:09)
[2020-11-02] MEDS: BUDESONIDE 0.5 MG/2 ML NEB RESP TX SCH ×2 (07:07→18:20)
[2020-11-02] MEDS: ARFORMOTEROL 15 MCG/2 ML NEB RESP TX SCH ×2 (07:07→18:20)
[2020-11-02] MEDS: DILTIAZEM 30 MG TABLET PO SCH ×3 (08:41→20:10)
[2020-11-02] MEDS: HYDROCORTISONE 1% CREAM 28 GM TUBE TOP SCH ×2 (08:43→20:11)
[2020-11-02] MEDS: FAMOTIDINE 8 MG/ML 50 ML/BOTTLE PEG SCH ×2 (08:43→20:10)
[2020-11-02] MEDS: buPROPion 100 MG TABLET PER TUBE SCH ×2 (08:43→20:10)
[2020-11-02] MEDS: FUROSEMIDE 40 MG/4 ML VIAL IV SCH ×2 (08:43→16:18)
[2020-11-02] MEDS: DICLOFENAC 1% GEL 100 GM TUBE TOP SCH ×3 (08:43→20:11)
[2020-11-02] MEDS: BACLOFEN 20 MG TABLET PO SCH ×4 (08:43→20:11)
[2020-11-02] MEDS: NYSTATIN 500,000 UNIT/5 ML UDCUP SWISH/SWAL SCH ×4 (08:43→20:10)
[2020-11-02] MEDS: ACETYLCYSTEINE 20% 800 MG/4 ML VIAL RESP TX SCH (10:04)
[2020-11-02] MEDS: ACETAMINOPHEN 325 MG TABLET PO PRN (14:19)
[2020-11-02] MEDS: LIDOCAINE 5% PATCH TRANSDERM SCH (20:10)
[2020-11-03] MEDS: ALBUTEROL/IPRATROPIUM 3 ML NEB RESP TX SCH ×3 (01:27→15:25)
[2020-11-03] MEDS: BUDESONIDE 0.5 MG/2 ML NEB RESP TX SCH ×2 (07:05→19:22)
[2020-11-03] MEDS: ARFORMOTEROL 15 MCG/2 ML NEB RESP TX SCH ×2 (07:05→19:22)
[2020-11-03] MEDS: FUROSEMIDE 40 MG/4 ML VIAL IV SCH ×2 (09:16→15:17)
[2020-11-03] MEDS: DILTIAZEM 30 MG TABLET PO SCH ×3 (09:17→22:07)
[2020-11-03] MEDS: BACLOFEN 20 MG TABLET PO SCH ×4 (09:17→20:20)
[2020-11-03] MEDS: NYSTATIN 500,000 UNIT/5 ML UDCUP SWISH/SWAL SCH ×4 (09:18→20:20)
[2020-11-03] MEDS: buPROPion 100 MG TABLET PER TUBE SCH ×2 (09:19→20:20)
[2020-11-03] MEDS: DICLOFENAC 1% GEL 100 GM TUBE TOP SCH ×3 (09:20→20:20)
[2020-11-03] MEDS: FAMOTIDINE 8 MG/ML 50 ML/BOTTLE PEG SCH ×2 (09:20→20:20)
[2020-11-03] MEDS: HYDROCORTISONE 1% CREAM 28 GM TUBE TOP SCH ×2 (09:21→20:20)
[2020-11-03] MEDS: ALPRAZolam 0.5 MG TABLET PO PRN (20:20)
[2020-11-03] MEDS: APIXABAN 5 MG TABLET PER TUBE SCH (22:08)
[2020-11-03] MEDS: LIDOCAINE 5% PATCH TRANSDERM SCH (22:50)
[2020-11-04] MEDS: ALBUTEROL/IPRATROPIUM 3 ML NEB RESP TX SCH ×2 (00:14→07:12)
[2020-11-04] MEDS: ALPRAZolam 0.5 MG TABLET PO PRN (04:20)
[2020-11-04] MEDS: ARFORMOTEROL 15 MCG/2 ML NEB RESP TX SCH (07:12)
[2020-11-04] MEDS: BUDESONIDE 0.5 MG/2 ML NEB RESP TX SCH (07:12)
[2020-11-04] MEDS: NYSTATIN 500,000 UNIT/5 ML UDCUP SWISH/SWAL SCH (08:42)
[2020-11-04] MEDS: DILTIAZEM 30 MG TABLET PO SCH (08:43)
[2020-11-04] MEDS: APIXABAN 5 MG TABLET PER TUBE SCH (08:43)
[2020-11-04] MEDS: buPROPion 100 MG TABLET PER TUBE SCH (08:43)
[2020-11-04] MEDS: FUROSEMIDE 40 MG/4 ML VIAL IV SCH (08:43)
[2020-11-04] MEDS: FAMOTIDINE 8 MG/ML 50 ML/BOTTLE PEG SCH (08:43)
[2020-11-04] MEDS: BACLOFEN 20 MG TABLET PO SCH (08:43)
[2020-11-04 08:44] VITALS: BP 106/68
[2020-11-04] MEDS: DICLOFENAC 1% GEL 100 GM TUBE TOP SCH (08:44)
[2020-11-04] MEDS: HYDROCORTISONE 1% CREAM 28 GM TUBE TOP SCH (08:44)
== END 2020-11-04 10:45 | DRG 5 ==
LOC: N.ED 19:37 → SUATTDRO 21:53 → N.EDINP 21:53 → N.CC 07-24 02:17 → N.5E 08-01 14:06 → N.ICU 08-03 16:55 → N.3E 08-29 16:47 → N.ICU 09-11 00:13 → N.CC 10-02 15:07
PROVIDERS: ADMIT Internal Medicine; ATTEND Internal Medicine
PROC: EGDWPEG (ICD-10-PCS; 2020-08-19 11:05)